=== PATIENT | female | born 1945 | race Caucasian/White ===

== ENCOUNTER 2024-05-21 16:13 | Inpatient (IN) ==
--- NOTE | 2024-05-21 16:33 | Emergency Department Note ---
Impression & Plan Stroke-like symptoms, UTI (urinary tract infection), Alzheimer dementia ED Provider Note Provider: Freddy Warren MD DATE OF SERVICE: 05/21/2024 CHIEF COMPLAINT: Slurred speech, facial droop, off HISTORY OF PRESENT ILLNESS: Patient is a 78-year-old female history of dementia and hypertension presenting with son today reportedly starting at least sometime last evening when patient was on the phone with the son son reports he seemed like she was having trouble with her words and slurring her speech some. Checked on her today and both he and his think she is not acting normal. Possibly some facial droop and walking harder and having difficulty with words. She lives by herself normally does have some dementia. I saw her following on Friday so last known well is more than 24 hours ago. No falls or trauma reported. Maybe some headaches earlier in the week a little bit of burning of the eyes at times. No crusting of the eyes. No falls reported or chest pain or significant abdominal pain or diarrhea. Patient herself does not remember her states she feels off so much. Son states that her amount of forgetfulness and mild confusion is not that abnormal for her baseline PAST MEDICAL HISTORY: As noted above MEDICATIONS: Reviewed home medications not anticoagulants SOCIAL HISTORY: Lives by herself PHYSICAL EXAM: GENERAL: alert and oriented to person in no acute distress on stretcher does states his 2020 Head: normocephalic and atraumatic EYES: No injection, discharge or icterus. PERRL, EOMI. NECK: Trachea midline. Good range of motion ENT: Mucous membranes pink and moist. LUNGS: Airway patent. No retractions. Breath sounds clear HEART: Regular rate and rhythm. No chest wall tenderness ABDOMEN: Soft and non-tender, without guarding or rebound. SKIN: Acyanotic, warm, dry, without rashes EXTREMITIES: Without swelling, tenderness or deformity NEUROLOGICAL: Maybe some very slight left finger-nose ataxia. No aphasia. No facial droop with maybe some slight slurred speech. Normal strength and tone in the extremities. Sensation to gross touch normal. Ambulatory. EK bpm sinus rhythm right bundle branch block without PVC. Anterior T wave inversions without acute ST segment elevation QTc 466. CONTINUOUS CARDIAC MONITORING: was ordered and showed a heart rate of 50s to 60s bpm in normal sinus rhythm to sinus bradycardia Patient's laboratory studies and imaging reviewed. Differential includes Infection, dehydration, metabolic abnormality, hypo/hyperglycemia, electrolyte disturbance, anemia, hypoxia, cardiac sources, intracerebral event, toxicologic, neurologic, as well as other pathologies. IMPRESSION/MEDICAL DECISION MAKING: Patient outside window for thrombolytics and not on high risk anticoagulants. Not a stroke alert as symptoms been ongoing for the 24 hours. Question of some shellfish allergy and given the patient's dementia and lack of history from the son unsure if this could extend to CT imaging dye. Patient not unresponsive and seems to grossly be moving all extremities. No severe hemiplegia. Will send for CT scan obtain blood work. Could be infectious, metabolic, or possibly represent occult CVA. Does not appear meningitic. Blood work here without anemia or leukocytosis. No severe electrolyte abnormalities or signs of renal dysfunction. Head CT without acute changes. No severe hemiplegia. Discussed with patient and family recommend she stay for further evaluation. Encouraged her to give a urine sample for testing to exclude UTI. Patient after long discussion was eventually agreeable. Discussed with hospitalist team. Urinalysis later does return concerning for UTI and the hospitalist team has started her on antibiotics. This likely explains her symptomatologies. DIAGNOSIS: Speech changes, dementia, UTI DISPOSITION: Hospitalist will evaluate Patient was agreeable with this plan as were family who encouraged her to stay. 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) Medical History Hypothyroid Social History Smoking Status: Never smoker Preferred Language: Georgian Feels Safe at Home: Yes Allergies Allergies Allergy/AdvReac Type Severity Reaction Status Date / Time shellfish derived AdvReac Intermediate SORENESS Verified 05/21/24 18:01 AROUND URETHRA WITH RASH, BURINING WITH URINATION Home Meds Home Medications Medication Instructions Recorded Confirmed lisinopril 10 mg tablet 10 mg PO DAILY 05/21/24 05/21/24 rivastigmine 9.5 mg/24 hour 9.5 mg topical DAILY 05/21/24 05/21/24 transdermal patch Results & Data (ED) Vital Signs Vital Signs - 24 hr 05/21/24 16:15 05/21/24 16:19 05/21/24 17:12 Temperature 36.6 C Temperature Source Temporal Artery Scan Pulse Rate 66 62 54 L Pulse Rhythm Regular Respiratory Rate 20 18 17 Respiratory Effort / Characteristics Non-Labored Spontaneous Respiratory Depth Normal Blood Pressure 158/84 H Blood Pressure Mean 108 Blood Pressure Position Sitting Pulse Oximetry 96 94 96 Oxygen Delivery Method Room Air Room Air Room Air Sepsis Recent Fever Within 48 Hours No Sepsis New/Unexplained Change in Mental Status No Sepsis Action Taken by Nursing No Action Required 05/21/24 17:15 05/21/24 17:21 05/21/24 17:30 Temperature Temperature Source Pulse Rate 58 L 55 L 56 L Pulse Rhythm Respiratory Rate 21 Respiratory Effort / Characteristics Respiratory Depth Blood Pressure Blood Pressure Mean Blood Pressure Position Pulse Oximetry 95 96 Oxygen Delivery Method Room Air Room Air Sepsis Recent Fever Within 48 Hours Sepsis New/Unexplained Change in Mental Status Sepsis Action Taken by Nursing 05/21/24 17:42 05/21/24 17:54 05/21/24 18:09 Temperature Temperature Source Pulse Rate 56 L 60 56 L Pulse Rhythm Respiratory Rate 21 20 19 Respiratory Effort / Characteristics Respiratory Depth Blood Pressure 154/102 H Blood Pressure Mean 119 Blood Pressure Position Pulse Oximetry 96 98 94 Oxygen Delivery Method Room Air Room Air Room Air Sepsis Recent Fever Within 48 Hours Sepsis New/Unexplained Change in Mental Status Sepsis Action Taken by Nursing 05/21/24 18:18 05/21/24 18:21 05/21/24 18:30 Temperature Temperature Source Pulse Rate 56 L 57 L Pulse Rhythm Respiratory Rate 16 21 Respiratory Effort / Characteristics Respiratory Depth Blood Pressure 169/104 H Blood Pressure Mean 135 Blood Pressure Position Pulse Oximetry 96 96 Oxygen Delivery Method Room Air Room Air Sepsis Recent Fever Within 48 Hours Sepsis New/Unexplained Change in Mental Status Sepsis Action Taken by Nursing 05/21/24 18:54 Temperature Temperature Source Pulse Rate 76 Pulse Rhythm Respiratory Rate 18 Respiratory Effort / Characteristics Respiratory Depth Blood Pressure Blood Pressure Mean Blood Pressure Position Pulse Oximetry Oxygen Delivery Method Sepsis Recent Fever Within 48 Hours Sepsis New/Unexplained Change in Mental Status Sepsis Action Taken by Nursing Laboratory Data 05/21/24 16:28 05/21/24 16:28 Lab Results 05/21/24 05/21/24 05/21/24 Range/Units 16:28 16:36 18:10 WBC 5.76 (4.8-10.8) K/ul RBC 5.04 (4.20-5.40) M/uL Hgb 14.5 (12.0-16.0) g/dl POC Hgb 13.6 (12.0-16.0) g/dl Hct 43.9 (37.0-47.0) % POC Hct 40 (37-47) % MCV 87.1 (80.0-100.0) fL MCH 28.8 (25.0-34.0) pg MCHC 33.0 (32.0-36.0) g/dL RDW Std Deviation 43.7 (36.4-46.3) fL RDW Coeff of Allison 13.7 (11.5-14.5) % Plt Count 250 (130-400) K/uL MPV 10.3 (9.4-12.4) fL PT 10.6 (9.0-12.0) Seconds INR 1.0 (0.9-1.1) APTT 26 (21-31) Seconds PTT Ratio 1.0 POC Sodium 139 (135-144) mmol/L Sodium 140 (136-145) mmol/L POC Potassium 4.1 (3.3-5.0) mmol/L Potassium 4.2 (3.5-5.1) mmol/L POC Chloride 107 (101-112) mmol/L Chloride 107 (98-107) mmol/L Carbon Dioxide 25 (21-32) mmol/L POC Total CO2 23 L (24-31) mmol/L Anion Gap 8 (3-11) POC Anion Gap 15.0 L (16-25) mmol/L POC BUN 9 (7-18) mg/dl BUN 10 (6-23) mg/dl Creatinine 0.80 (0.6-1.2) mg/dl POC Creatinine 0.8 (0.6-1.3) mg/dl Est Cr Clr Drug Dosing Not Reportable Est GFR ( Amer) 81.3 ml/min Est GFR (Non-Af Amer) 70.1 ml/min BUN/Creatinine Ratio 12.5 (10-20) Glucose 92 (70-99(Fasting)) mg/dl POC Glucose 94 (70-99) mg/dl POC Glucose (other) 92 (70-99) mg/dl Calcium 9.2 (8.6-10.3) mg/dl POC Ioniz Calcium Nikita 1.16 (1.12-1.32) mmol/l Magnesium 2.5 H (1.7-2.4) mg/dl Total Bilirubin 0.6 (0.2-1.0) mg/dl AST 31 (13-39) U/L ALT 22 (7-52) U/L Alkaline Phosphatase 81 (34-104) U/L Total Protein 6.4 (6.0-8.3) gm/dl Albumin 4.2 (3.4-5.0) gm/dl Globulin 2.2 L (2.5-4.0) gm/dl Albumin/Globulin Ratio 1.9 (0.9-2) Urine Color Yellow Urine Appearance Turbid A (Clear) Urine pH 5.5 (4.5-7.5) Ur Specific [place] 1.016 (1.000-1.030) Urine Protein Trace H (Negative) Urine Glucose (UA) Negative (Negative) Urine Ketones Trace H (Negative) Urine Blood 1+ H (Negative) Urine Nitrite Positive A (Negative) Urine Bilirubin Negative (Negative) Urine Urobilinogen Negative (Negative) Ur Leukocyte Esterase 3+ H (Negative) Urine WBC (Auto) >50 H (0-5) /hpf Urine RBC (Auto) 6-10 H (0-2) /hpf U Hyaline Cast (Auto) 3-5 H (0-2) /lpf U Epithel Cells (Auto) 0-2 (0-2) /hpf Urine Bacteria (Auto) 4+ H (None Seen) Calcium Oxalate Crystal Present A (None Prsent) Lyme Disease Screen Negative (Negative) Administered Medications Ceftriaxone Sodium (Rocephin) 2,000 mg in 50 mls @ 100 mls/hr IV Q24H GUS Stop: 05/26/24 18:59 Last Infusion: 05/21/24 19:48 Dose: Infused Documented By: Admin: 05/21/24 19:18 Dose: 100 mls/hr Documented By: NRB Discontinued Medications Melatonin (Melatonin 3 Mg Tab) 6 mg PO ONE ONE Stop: 05/21/24 19:37 Last Admin: 05/21/24 19:41 Dose: 6 mg Documented By: HARVINDER Miscellaneous (Patient's Height &/Or Weight Needed) 1 each N/A NOW STA Stop: 05/21/24 21:29 Last Admin: 05/21/24 21:46 Dose: Not Given Documented By: [facility] Imaging Data Radiologist's Impression: Head CT 05/21/24 16:[address] DOSE: 547.75 mGy.cm HISTORY: Slurred speech. Neuro deficit, acute, stroke suspected TECHNIQUE: Multiaxial CT images of the head were performed without the use of intravenous contrast. Automated exposure control was utilized for this study. A dose lowering technique was utilized adhering to the principles of ALARA. Comparison: Head CT 04/25/2023. Findings: The paranasal sinuses and mastoid air cells are clear. The calvarium and skull base are intact. There is no mass, hematoma, midline shift, acute infarct. White matter hypodensity is nonspecific but suggestive of microvascular ischemic change. The ventricles and sulci demonstrate mild age-related involutional changes. Stable prominence within the right extra-axial posterior fossa measuring 2.7 cm. This favors an arachnoid cyst. Impression: No significant change compared to the prior study. No acute intracranial abnormality. ACT 112: Negative or not required by law. Electronically signed by: Ron Chapin M.D. 05/21/2024 5:06 PM Discharge Plan Visit Data Chief Complaint: TIA Symptoms Stated Complaint: POSSIBLE STROKE, SLURRED SPEECH, FACE DROOP ED Provider: Freddy Warren Discharge Problem: Stroke-like symptoms, UTI (urinary tract infection), Alzheimer dementia Patient Disposition: Admitted As Inpatient Discharge Instructions Interventions: ED Discharge Assessment Last Done: 05/21/24 21:28
[2024-05-21 16:49] LABS: iSTAT Creatinine 0.8 mg/dl (0.6-1.3); iSTAT Hemoglobin 13.6 g/dl (12.0-16.0); iSTAT Ionized Calcium 1.16 mmol/l (1.12-1.32); iSTAT Potassium 4.1 mmol/L (3.3-5.0)
[2024-05-21 16:55] LABS: Hematocrit (blood only) 43.9 % (37.0-47.0); Hemoglobin 14.5 g/dl (12.0-16.0); Mean Corpuscular Hemoglobin 28.8 pg (25.0-34.0); Mean Corpuscular Volume 87.1 fL (80.0-100.0); Mean Platelet Volume 10.3 fL (9.4-12.4); Platelet Count 250 K/uL (130-400); RDW Coefficient of Variation 13.7 % (11.5-14.5); RDW Standard Deviation 43.7 fL (36.4-46.3); Red Blood Count 5.04 M/uL (4.20-5.40); White Blood Count 5.76 K/ul (4.8-10.8)
--- NOTE | 2024-05-21 17:08 | CT Scan Report ---
HEAD CT NONCONTRAST CT DOSE: 547.75 mGy.cm HISTORY: Slurred speech. Neuro deficit, acute, stroke suspected TECHNIQUE: Multiaxial CT images of the head were performed without the use of intravenous contrast. A utomated exposure control was utilized for this study. A dose lowering technique was utilized adheri ng to the principles of ALARA. Comparison: Head CT 04/25/2023. Findings: The paranasal sinuses and mastoid air cells are clear. The calvarium and skull base are int act. There is no mass, hematoma, midline shift, acute infarct. White matter hypodensity is nonspecifi c but suggestive of microvascular ischemic change. The ventricles and sulci demonstrate mild age-rela gali involutional changes. Stable prominence within the right extra-axial posterior fossa measuring 2. 7 cm. This favors an arachnoid cyst. Impression: No significant change compared to the prior study. No acute intracranial abnormality. ACT 112: Negative or not required by law. Electronically signed by: Ron Chapin M.D. 05/21/2024 5:06 PM
[2024-05-21 17:13] LABS: Alanine Aminotransferase 22 U/L (7-52); Albumin Globulin Ratio 1.9 (0.9-2); Albumin Level 4.2 gm/dl (3.4-5.0); Alkaline Phosphatase 81 U/L (34-104); Anion Gap 8 (3-11); Aspartate Aminotransferase 31 U/L (13-39); BUN Creatinine Ratio 12.5 (10-20); Bilirubin,Total 0.6 mg/dl (0.2-1.0); Blood Urea Nitrogen 10 mg/dl (6-23); Calcium 9.2 mg/dl (8.6-10.3); Carbon Dioxide 25 mmol/L (21-32); Chloride 107 mmol/L (98-107); Est GFR (African American) 81.3 ml/min; Est GFR (Non-African American) 70.1 ml/min; Globulin 2.2 gm/dl (2.5-4.0); Glucose 92 mg/dl (70-99(Fasting)); Magnesium 2.5 mg/dl (1.7-2.4); Potassium 4.2 mmol/L (3.5-5.1); Sodium 140 mmol/L (136-145); Total Protein 6.4 gm/dl (6.0-8.3)
[2024-05-21 17:26] LABS: Partial Thromboplastin Time 26 Seconds (21-31); Prothrombin Time 10.6 Seconds (9.0-12.0)
--- NOTE | 2024-05-21 17:57 | History & Physical Report ---
Date of Service May 21, 2024 Assessment & Plan (1) UTI (urinary tract infection): (2) Stroke-like symptoms: (3) Alzheimer dementia: (4) Essential hypertension: Plan 78-year-old female with history of Alzheimer's dementia on Exelon patch, hypertension was brought to the ED by family for concern for slurred speech, slight facial droop UTI- UA positive for UTI. Will start on rocephin pending final urine culture results. Stroke like symptoms- had slurred speech, may be slight facial droop. Neuro exam was relatively unremarkable although gait not checked. Concern that these symptoms might be related to her UTI rather than acute CVA and hence will hold off on ASA, statin or neuro eval or stroke order set and last well known time seems to be few days ago. CT head unremarkable. Will get MRI brain and carotid dopplers and monitor on tele. PT OT eval Alzheimer's dementia- on exelon patch. Delirium precautions. HTN- continue lisinopril. HLZ prn. DVT ppx- sc lovenox DNR/DNI- reviewed with son at bedside Dispo- admit to [facility] on tele Updated family at bedside Time spent- approx 75 mins History of Present Illness Chief Complaint: slurred speech Primary Care Provider: Alejo Coburn MD 78-year-old female with history of Alzheimer's dementia on Exelon patch, hypertension was brought to the ED by family for concern for slurred speech, slight facial droop. Patient is awake alert oriented x 2 and able to converse but not able to provide full history given her dementia. Per family at bedside, when he spoke her over the phone, she had slurred speech, like she was drunk, also noted she had somewhat side effects on the right side. She will feel safe at home with caregivers 3 times a week for 4 hours, however family lives with 6 minutes away. She is able to ambulate without any issues. Her dementia is recently getting worse and she started to have sundowning and wandering. Per family, last well-known time was maybe 2 to 3 days ago. She does not smoke or drink alcohol. She does not have any history of TIA or stroke. No history of heart or lung disease. No history of A-fib. No history of blood clots. 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 No Pronator drift. strength 5/5 on all extremities. sensation grossly intact. finger-nose test unremarkable. Gait not checked. Cranial nerves grossly intact Extremities: No cyanosis, clubbing or edema Psych: calm, cooperative, demented at baseline Results & Data Results & Data Vital Signs (Past 12 Hours) Vital Signs Temp Pulse Resp BP Pulse Ox O2 Del Method 05/21/24 17:15 58 L 05/21/24 16:19 62 18 94 Room Air 05/21/24 16:15 36.6 C 66 20 158/84 H 96 Room Air Laboratory Results Short CBC 05/21/24 Range/Units 16:28 WBC 5.76 (4.8-10.8) K/ul Hgb 14.5 (12.0-16.0) g/dl Hct 43.9 (37.0-47.0) % Plt Count 250 (130-400) K/uL BMP 05/21/24 16:28 Sodium 140 Potassium 4.2 Chloride 107 Carbon Dioxide 25 BUN 10 Creatinine 0.80 Glucose 92 Calcium 9.2 Liver Function 05/21/24 Range/Units 16:28 Total Bilirubin 0.6 (0.2-1.0) mg/dl AST 31 (13-39) U/L ALT 22 (7-52) U/L Alkaline Phosphatase 81 (34-104) U/L Albumin 4.2 (3.4-5.0) gm/dl Urine 05/21/24 Range/Units 18:10 Urine Color Yellow Urine Appearance Turbid A (Clear) Urine pH 5.5 (4.5-7.5) Ur Specific [place] 1.016 (1.000-1.030) Urine Protein Trace H (Negative) Urine Glucose (UA) Negative (Negative) Diagnostic Findings Head CT 05/21/24 16:[address] DOSE: 547.75 mGy.cm HISTORY: Slurred speech. Neuro deficit, acute, stroke suspected TECHNIQUE: Multiaxial CT images of the head were performed without the use of intravenous contrast. Automated exposure control was utilized for this study. A dose lowering technique was utilized adhering to the principles of ALARA. Comparison: Head CT 04/25/2023. Findings: The paranasal sinuses and mastoid air cells are clear. The calvarium and skull base are intact. There is no mass, hematoma, midline shift, acute infarct. White matter hypodensity is nonspecific but suggestive of microvascular ischemic change. The ventricles and sulci demonstrate mild age-related involutional changes. Stable prominence within the right extra-axial posterior fossa measuring 2.7 cm. This favors an arachnoid cyst. Impression: No significant change compared to the prior study. No acute intracranial abnormality. ACT 112: Negative or not required by law. Electronically signed by: Ron Chapin M.D. 05/21/2024 5:06 PM
[2024-05-21 18:44] LABS: Appearance Urine Turbid (Clear); Bacteria Urine Automated 4+ (None Seen); Bilirubin Urine Negative (Negative); Blood Urine 1+ (Negative); Calcium Oxalate Crystals Urine Present (None Prsent); Color Urine Yellow; Epithelial Cell Urine Auto 0-2 /hpf (0-2); Glucose Urine UA Negative (Negative); Ketones Urine Trace (Negative); Leukocyte Esterase Urine 3+ (Negative); Nitrite Urine Positive (Negative); Protein Urine Trace (Negative); Specific Gravity Urine 1.016 (1.000-1.030); Urobilinogen Urine Negative (Negative); WBC Urine Automated >50 /hpf (0-5); pH Urine 5.5 (4.5-7.5)
[2024-05-21] MEDS: cefTRIAXone SODIUM 2,000 MG/50 ML BAG IV SCH (19:18)
[2024-05-21] MEDS: MELATONIN 3 MG TAB PO ONE (19:41)
[2024-05-21] MEDS ORDERED: hydrALAZINE HCL 20 MG/ML VIAL IV PRN (21:27)
[2024-05-21] MEDS ORDERED: ACETAMINOPHEN 325 MG TAB PO PRN (21:27)
[2024-05-21] MEDS: Patient's HEIGHT &/or WEIGHT Needed STA (21:46)
--- OUTSIDE RECORDS SUMMARY | 2024-05-21 22:18 | External Medical Summary | Summary of Care ---
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 180 Tablet 3 08/12/2023 Active Lisinopril 10 MG Oral Tablet (Prinivil) Take 1 Tablet by mouth in the morning. 90 Tablet 3 11/12/2023 Active Rivastigmine 4.6 MG/24HR Transdermal Patch 24 Hour (Exelon) Place 1 Patch over 24 hours topically on the skin in the morning. 30 Patch 12 02/11/2024 Active Hospital, Clinic, or Other Facility Administered Medication Ordered Dose Route Frequency Start Date End Date Status vitamin b-12 (Cyanocobalamin) inj 1,000 mcgIndications:B12 deficiency 1000 mcg IM [id number] 06/03/2023 05/03/2024 Active vitamin b-12 (Cyanocobalamin) inj 1,000 mcgIndications:Vitamin B12 deficiency 1000 mcg IM [id number] 11/12/2023 10/13/2024 Active documented as of this encounter (statuses as of 02/20/2024) Active Problems Problem Noted Date Diagnosed Date Vitamin B12 deficiency 08/12/2023 Mild dementia 05/31/2023 Overweight (BMI 25.0-29.9) 05/31/2023 HTN, goal below 130/80 04/30/2023 Senile osteoporosis 08/01/2017 Dyslipidemia 10/04/2009 Overview: Per Lipid Taxonomy. Subclinical hypothyroidism 07/03/1998 documented as of this encounter (statuses as of 02/20/2024) Resolved Problems Problem Noted Date Diagnosed Date Resolved Date Encounter for examination fo r normal comparison and control in clinical research program 02/15/2019 05/22/2020 Overview: DO NOT DELETE [facility] DETECT Study: Project # [id number], Fourth Grade Teacher: Roscoe Baldwin, PhD. SUMMARY: Goal: Establish test characteristics (sensitivity, specificity, PPV, NPV) of a circulating tumor DNA (ctDNA)-based test for cancer. Hypothesis: Circulating tumor DNA (ctDNA) and elevated protein biomarkers (together, the marker panel) can be detected in asymptomatic individuals with early cancer. Specific Aim 1: Determine the prevalence of a positive marker panel test in a prospective clinical cohort of 10,000 asymptomatic women ages 65 to 75 years. Specific Aim 2: Determine the sensitivity, specificity, positive predictive value (PPV) and negative predictive value (NPV) of a marker panel test to identify histologically proven cancers that develop within 5-years of the marker panel evaluation. CONTACTS: During normal business hours, contact study staff at ; after hours Fourth Grade Teacher via the [facility] direct casting operator . Please contact study team before resolving/deleting from patients problem list. Study phone number: [phone]. Diagnosis changed due to Research Module. Go to Snapshot for study details. Encounter for examination fo r normal comparison and control in clinical research program 02/15/2019 06/20/2022 Overview: DO NOT DELETE - [facility] DETECT Study: Project # [id number], Fourth Grade Teacher: Jesus Tolbert, MS, MPH. SUMMARY: Goal: Establish test characteristics (sensitivity, specificity, PPV, NPV) of a circulating tumor DNA (ctDNA)-based test for cancer. - Hypothesis: Circulating tumor DNA (ctDNA) and elevated protein biomarkers (together, the marker panel) can be detected in asymptomatic individuals with early cancer. - Specific Aim 1: Determine the prevalence of a positive marker panel test in a prospective clinical cohort of 10,000 asymptomatic women ages 65 to 75 years. - Specific Aim 2: Determine the sensitivity, specificity, positive predictive value (PPV) and negative predictive value (NPV) of a marker panel test to identify histologically proven cancers that develop within 5-years of the marker panel evaluation. - CONTACTS: During normal business hours, contact study staff at ; after hours Fourth Grade Teacher via the [facility] direct casting operator . - Please contact study team before resolving/deleting from patients problem list. Study phone number: [phone]. Diagnosis changed due to Research Module. Go to Snapshot for study details. Prediabetes 12/02/2017 03/31/2019 Overview: Per Prediabetes protocol #1 Colonoscopy refused 09/04/2017 03/30/20 20 Overview: Acute. Mammogram declined 09/04/2017 0 Overview: Acute. BMI 35-39 ISOLATED (SEE ACTUAL BMI) 04/02/2010 09/04/2017 Overview: Per Obesity Protocol, #19 ADVANCE DIRECTIVE INFORMATION 03/20/2007 09/04/2017 Overview: Yes, Patient instructed to provide copy of advance directive for provider to review and to be scanned into Electronic Medical Record Osteoporosis 01/16/2000 08/01/2017 FAM HX-DIABETES MELLITUS - Brother 10/31/1999 09/04/2017 Mixed dyslipidemia 07/03/1998 9 Overview: Per Lipid Taxonomy. MENOPAUSE - 07/03/1998 09/04/2017 Calculus of kidney 10/20/1992 7 documented as of this encounter (statuses as of 02/20/2024) Immunizations Name Administration Dates Next Due COVID-19 mRNA, LNP-s, No Pre serve, 2-Dose Series (Pfizer) 01/16/2021 Pneumococcal Conjugate Vacc, 13 Valent (Prevnar) 02/27/2016 Pneumococcal Polysaccharide PPV23 (Pneumovax) Seasonal Influenza, Quadrivalent Hd (Fluzone Hd) 08/12/2023 Seasonal Influenza, Split, IIV3, With Preserve, Inj 08/18/2013 Seasonal Influenza, Trivalent, Adjuvanted, 65+ y rs 08/26/2019 TDAP (age 10 and older)(Boostrix) 03/10/2019 TDAP (age 11 and older)(Adacel) 04/07/2008 Varicella Zoster Vaccine (Adult) 05/17/2011 documented as of this encounter Social History Tobacco Use Types Packs/Day Years Used Date Smoking Tobacco: Never Smokeless Tobacco: Never Alcohol Use Standard Drinks/Week Comments Yes 0 (1 standard drink = 0.6 oz pur e alcohol) rare PHQ-2 Answer Date Recorded PHQ-2 Score 0 08/26/2019 Hunger Vital Sign Answer Date Recorded Worried About Running Out of Food in the Last Ye ar Never true 08/26/2019 Ran Out of Food in the Last Year Never true 08/26/2019 Education Answer Date Recorded What is the highest level of school you have completed or the highest degree you have received? 12th grade 01/13/2024 Sex and Gender Information Value Date Recorded Sex Assigned at Female 03/10/2019 3:00 PM EDT Gender Identity Female 03/10/2019 3:00 PM EDT Sexual Orientation Not on file Job Start Date Occupation Industry Not on file Not on file Not on file documented as of this encounter Last Filed Vital Signs Vital Sign Reading Time Taken Comments Blood Pressure 120/78 02/18/2024 3:24 PM EDT Pulse 53 02/18/2024 3:24 PM EDT Temperature 36.6 C (97.8 F) 02/18/2024 3:24 PM ED T Respiratory Rate 18 02/18/2024 3:24 PM EDT Oxygen Saturation 97% 02/18/2024 3:24 PM EDT Inhaled Oxygen Concentration - - Weight 72.1 kg (159 lb) 02/18/2024 3:24 PM EDT Height 157.5 cm (5' 2") 02/18/2024 3:24 PM EDT Body Mass Index 29.08 02/18/2024 3:24 PM EDT documented in this encounter Progress Notes * Alejo Coburn MD - 02/20/2024 8:04 AM EDT SUBJECTIVE: Cleopatra Edwards is a 78 year old female. Chief Complaint Patient presents with Follow Up Pt here with son for 3 month follow up and would like to discuss recent testing HPI: Here with son for follow up. There was a lot of confusion re: Exelon patch. Patient and son were not aware it was sent in or what is was for. Reviewed neurology recommendations with them. All questions answered. Patient Active Problem List Diagnosis Code Subclinical hypothyroidism E03.8 Dyslipidemia E78.5 Senile osteoporosis M81.0 HTN, goal below 130/80 I10 Mild dementia (HCC) F03.A0 Overweight (BMI 25.0-29.9) E66.3 Vitamin B12 deficiency E53.8 Current Outpatient Medications Medication Sig Dispense Refill Memantine HCl 5 MG Oral Tablet (Namenda) Take 1 Tablet by mouth in the morning and 1 Tablet before bedtime. 180 Tablet 3 Lisinopril 10 MG Oral Tablet (Prinivil) Take 1 Tablet by mouth in the morning. 90 Tablet 3 Rivastigmine 4.6 MG/24HR Transdermal Patch 24 Hour (Exelon) Place 1 Patch over 24 hours topically on the skin in the morning. 30 Patch 12 Current Facility-Administered Medications Medication Dose Route Frequency Provider Last Rate Last Admin vitamin b-12 (Cyanocobalamin) inj 1,000 mcg 1,000 mcg Intramuscular Q4 Weeks Shaneka Wolf MD 1,000 mcg at 11/12/23 1156 vitamin b-12 (Cyanocobalamin) inj 1,000 mcg 1,000 mcg Intramuscular Q4 Weeks Alejo Coburn MD Allergy: Review of patient's allergies indicates: Allergen Reactions Amoxicillin Aspirin GI upset Donepezil Unknown Lactose Intolerance Shellfish Hives OBJECTIVE: BP 120/78 | Pulse 53 | Temp 36.6 C (97.8 F) (Tympanic) | Resp 18 | Ht 1.575 m (5' 2") | Wt 72.1kg (159 lb) | SpO2 97% | BMI 29.08 kg/m | BSA 1.78 m General: alert, healthy, and no distress Head: Normocephalic, No masses, lesions, tenderness or abnormalities Neck: supple, no adenopathy, no bruits, thyroid normal size, non-tender, without nodularity Lungs: chest symmetric with normal AP diameter, no chest deformities noted, no chest wall tenderness, lungs clear to auscultation Heart: regular rate & rhythm, no murmur, and no gallops Pulses: carotid=2/4 w/o bruits Extremities: less than 2 second capillary refill, no joint deformities, effusion, or inflammation ASSESSMENT AND PLAN: (G30.0, F02.A18) 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 No other complaints were offered at this time. Alejo Coburn MD documented in this encounter Nursing Notes * Maddy Ireland LPN - 02/18/2024 3:24 PM EDT The patient has been properly identified by confirmation of name and date of . Chief Complaint Patient presents with Follow Up Pt here with son for 3 month follow up and would like to discuss recent testing documented in this encounter Plan of Treatment Upcoming Encounters Date Type Department Care Team (Late st Contact Info) Description 02/24/2024 11:30 AM EDT Imaging Rad[facility] [address] [facility] [place] [address] 03/22/2024 4:30 PM EDT Imaging Radiology [address] [facility] [place] [address] 03/30/2024 1:40 PM EDT Office Visit Neurology [facility] [address] [place] [address] Bonnie Siddiqui MD [address] [facility] [place] [address] 08/23/2024 11:40 AM EST Office Visit Family Practice [facility] [address] [place] [address] Alejo Coburn MD [address] [facility] [place] [address] Scheduled Orders Name Type Priority Associated Diagnoses Orde r Schedule MAMMOGRAM SCREENING BILATERAL Medical Imaging Routine Encounter for screening mammogram for breast cancer Expected: 02/19/2024, Expires: 03/20/2025 Health Maintenance Due Date Last Done Comments Albumin/Creatinine Ratio 1963 Hepatitis C Screening 1963 Zoster Vaccines (2 of 3) 07/12/2011 05/17/2011 Mammogram 05/31/2016 05/31/2015, 11/2009, 08/04/2009, Additional history exists Depression Screening 08/26/2020 08/26/2019 *BISPHONATE OR OTHER ACCEPTABLE MEDICATION NEEDED FOR OSTEOPOROSIS (REFER TO SMARTSET #1146) 01/11/2022 DXA Scan 05/23/2022 05/23/2020, 05/20, 05/02/2014, Additional history exists COVID-19 Vaccine ( season) 2023 01/16/2021 GFR 04/30/2024 04/30/2023, 12/19, 06/14/2016, Additional history exists DTaP,Tdap,and Td Vaccines (3 - Td or Tdap) 03/10/2029 03/10/2019, 04/07/2008 VITAMIN D LEVEL ONCE IN A LIFETIME-USE SMARTSET# [id number] Completed 05/16/2014, 05/01/2010 Pneumococcal Vaccine: 65+ Years Completed 02/27/2016, 11/09/2010 Influenza Vaccine (FLU shot) Completed , 08/26/2019, 08/18/2013 GARDASIL-HPV IMMUNIZATION SERIES Aged Out No longer eligible based on patient's age to complete this topic Hepatitis B Aged Out No longer eligi ble based on patient's age to complete this topic MENINGOCOCCAL (MENACTRA/MENVEO) Aged Out No longer eligible based on patient's age to complete this topic documented as of this encounter Medical Devices Not on filedocumented as of this encounter Visit Diagnoses Diagnosis 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
--- OUTSIDE RECORDS SUMMARY | 2024-05-21 22:18 | External Medical Summary | Summary of Care ---
Author Name Unknown Organization [facility] Address [address] [place] [address] Phone [phone] Care Team Providers Care Superintendent Stations Name Role Phone Alejo Coburn MD Primary Care Provider [phone] Reason for Visit * Reason Onset Date Comments Test Results Imaging Study 02/28/2024 Encounter Details Date Type Department Care Team (Late st Contact Info) Description 02/28/[address] [facility] [address] [place] [address] Bonnie Siddiqui MD [address] [place] [address] Test Results Imaging Study Allergies Active Allergy Reactions Criticality Noted Date Comments Amoxicillin 07/23/2016 Aspirin 10/31/1999 GI upset Donepezil Unknown 01/13/2024 Lactose Intolerance 10/31/1999 Shellfish 06/24/2003 Hives documented as of this encounter (statuses as of 02/28/2024) Medications Medication Sig Dispensed Refills Start Date [...] inj 1,000 mcgIndications:B12 deficiency 1000 mcg IM [id number] 06/03/2023 05/03/2024 Active vitamin b-12 (Cyanocobalamin) inj 1,000 mcgIndications:Vitamin B12 deficiency 1000 mcg IM [id number] 11/12/2023 10/13/2024 Active documented as of this encounter (statuses as of 02/28/2024) Active Problems Problem Noted Date Diagnosed Date Vitamin B12 deficiency 08/12/2023 Mild dementia 05/31/2023 Overweight (BMI 25.0-29.9) 05/31/2023 HTN, goal below 130/80 04/30/2023 Senile osteoporosis 08/01/2017 Dyslipidemia 10/04/2009 Overview: Per Lipid Taxonomy. Subclinical hypothyroidism 07/03/1998 documented as of this encounter (statuses as of 02/28/2024) Resolved Problems Problem Noted Date Diagnosed Date Resolved Date Encounter for examination fo r normal comparison and control in clinical research program 02/15/2019 05/22/2020 Overview: DO NOT DELETE [facility] DETECT Study: Project # [id number], Hand Straightener: Roscoe Baldwin, PhD. SUMMARY: Goal: Establish test [...] contact study staff at ; after hours Hand Straightener via the [facility] hospital movie operator . Please contact study team before resolving/deleting from patients problem list. Study phone number: [phone]. Diagnosis changed due to Research Module. Go to Snapshot for study details. Encounter for examination fo r normal comparison and control in clinical research program 02/15/2019 06/20/2022 Overview: DO NOT DELETE - [facility]i BROOKS Study: Project # [id number], Hand Straightener: Jesus Tolbert, MS, MPH. SUMMARY: Goal: Establish [...] contact study staff at ; after hours Hand Straightener via the [facility] hospital movie operator . - Please contact study team before resolving/deleting from patients problem list. Study phone number: [phone]. Diagnosis changed due to Research Module. Go [...] as of this encounter (statuses as of 02/28/2024) Immunizations Name Administration Dates Next Due COVID-19 [...] on file documented as of this encounter Miscellaneous Notes * Telephone Encounter - Bonnie Siddiqui MD - 02/28/2024 10:22 AM EDT Call pt/friend Viciki-MRI cervical spine shows arthritis but nothing more serious documented in this encounter Plan of Treatment Upcoming Encounters Date Type Department Care Team (Late st Contact Info) Description 03/22/2024 4:30 PM EDT Imaging Radiology [address] [place] [address] 03/30/2024 1:40 PM EDT Office Visit Neurology [facility] [address] [place] [address] Bonnie Siddiqui MD [address] [facility] [place] [address] 08/23/2024 11:40 AM EST Office Visit Family Practice [facility] [address] [place] [address] Alejo Coburn MD [address] [place] [address] Health Maintenance Due Date Last Done Comments Albumin/Creatinine Ratio 1963 Hepatitis C Screening 1963 Zoster Vaccines (2 of 3) 07/12/2011 05/17/2011 Mammogram 05/31/2016 05/31/2015, 11/2009, 08/04/2009, Additional history exists Depression Screening 08/26/2020 08/26/2019 *BISPHONATE OR OTHER ACCEPTABLE MEDICATION NEEDED FOR OSTEOPOROSIS (REFER TO SMARTSET #1146) 01/11/2022 DXA Scan 05/23/2022 05/23/2020, 05/20, 05/02/2014, Additional history exists COVID-19 Vaccine ( - 2022- season) 2023 01/16/2021 GFR 04/30/2024 04/30/2023, 12/19, 06/14/2016, Additional history exists DTaP,Tdap,and Td Vaccines (3 - Td or Tdap) 03/10/2029 03/10/2019, 04/07/2008 VITAMIN D LEVEL ONCE IN A LIFETIME-USE SMARTSET# [id number] Completed 05/16/2014, 05/01/2010 Pneumococcal Vaccine: 65+ Years [...] Not on filedocumented as of this encounter Care Teams Superintendent Stations Relationship Specialty Start Date End Date Alejo Coburn MD [address] [place] [address] PCP - General Family Medicine 08/01/17 documented as of this encounter
--- OUTSIDE RECORDS SUMMARY | 2024-05-21 22:18 | External Medical Summary | Summary of Care ---
Author Name Unknown Organization [facility] Address [address] [place] [address] Phone [phone] Care Team Providers Care Cutter Plastics Rolls Name Role Phone Alejo Coburn MD Primary Care Provider [phone] Reason for Visit * Reason Onset Date Comments EEG 02/11/2024 Encounter Details Date Type Department Care Team (Late st Contact Info) Description 02/11/2024 Telephone Neurology [facility] [place] [address] [place] [address] Bonnie Siddiqui MD [address] [place] [address] EEG Allergies Active Allergy Reactions Criticality Noted Date Comments Amoxicillin 07/23/2016 Aspirin 10/31/1999 GI upset Donepezil Unknown 01/13/2024 Lactose Intolerance 10/31/1999 Shellfish 06/24/2003 Hives documented as of this encounter (statuses as of 02/18/2024) Medications Medication Sig Dispensed Refills Start Date [...] inj 1,000 mcgIndications:B12 deficiency 1000 mcg IM [id number] 06/03/2023 05/03/2024 Active vitamin b-12 (Cyanocobalamin) inj 1,000 mcgIndications:Vitamin B12 deficiency 1000 mcg IM [id number] 11/12/2023 10/13/2024 Active documented as of this encounter (statuses as of 02/18/2024) Active Problems Problem Noted Date Diagnosed Date Vitamin B12 deficiency 08/12/2023 Mild dementia 05/31/2023 Overweight (BMI 25.0-29.9) 05/31/2023 HTN, goal below 130/80 04/30/2023 Senile osteoporosis 08/01/2017 Dyslipidemia 10/04/2009 Overview: Per Lipid Taxonomy. Subclinical hypothyroidism 07/03/1998 documented as of this encounter (statuses as of 02/18/2024) Resolved Problems Problem Noted Date Diagnosed Date Resolved Date Encounter for examination fo r normal comparison and control in clinical research program 02/15/2019 05/22/2020 Overview: DO NOT DELETE [facility] DETECT Study: Project # [id number], Lehr Loader: Roscoe Baldwin, PhD. SUMMARY: Goal: Establish test [...] contact study staff at ; after hours Lehr Loader via the [facility] tool machine set up operator . Please contact study team before resolving/deleting from patients problem list. Study phone number: [phone]. Diagnosis changed due to Research Module. Go to Snapshot for study details. Encounter for examination fo r normal comparison and control in clinical research program 02/15/2019 06/20/2022 Overview: DO NOT DELETE - Nagi Carl DETECT Study: Project # [id number], Lehr Loader: Jesus Tolbert, MS, MPH. SUMMARY: Goal: Establish [...] contact study staff at ; after hours Lehr Loader via the [facility] hospital tool machine set up operator . - Please contact study team before resolving/deleting from patients problem list. Study phone number: [phone]. Diagnosis changed due to Research Module. Go [...] as of this encounter (statuses as of 02/18/2024) Immunizations Name Administration Dates Next Due COVID-19 [...] encounter Miscellaneous Notes * Telephone Encounter - Jennifer Martinez LPN - 02/18/2024 10:58 AM EDT Attempted to call only number on file for patient, unable to reach any one and VM has not been set up yet. * Telephone Encounter - Jennifer Martinez LPN - 02/11/2024 3:05 PM EDT Attempted to call patient, no answer and unable to leave as it is not set up yet. * Telephone Encounter - Bonnie Siddiqui MD - 02/11/2024 2:43 PM EDT Call pt/friend Suzette-pt is severely memory impaired; EEG slow but no sz (good news) I personally reviewed and interpreted have sent script for exelon patch; have her f/u 6weeks documented in this encounter Plan of Treatment Upcoming Encounters Date Type Department Care Team (Late st Contact Info) Description 02/18/2024 3:20 PM EDT Office Visit Family Practice [facility] [address] [place] [address] Alejo Coburn MD [address] [place] [address] 02/24/2024 11:30 AM EDT Imaging Radiology [address] [place] [address] 03/30/2024 1:40 PM EDT Office Visit Neurology [facility] [address] [facility] [place] [address] Bonnie Siddiqui MD [address] [facility] [place] [address] Health Maintenance Due Date Last Done Comments Albumin/Creatinine Ratio 1963 Hepatitis C Screening 1963 Zoster Vaccines (2 of 3) 07/12/2011 05/17/2011 Mammogram 05/31/2016 05/31/2015, 11/2009, 08/04/2009, Additional history exists Depression Screening 08/26/2020 08/26/2019 *BISPHONATE OR OTHER ACCEPTABLE MEDICATION NEEDED FOR OSTEOPOROSIS (REFER TO SMARTSET #1146) 01/11/2022 DXA Scan 05/23/2022 05/23/2020, 05/20, 05/02/2014, Additional history exists COVID-19 Vaccine () 06/20/2023 01/16/2021 GFR 04/30/2024 04/30/2023, 12/19, 06/14/2016, Additional history exists DTaP,Tdap,and Td Vaccines (3 - Td or Tdap) 03/10/2029 03/10/2019, 04/07/2008 VITAMIN D LEVEL ONCE IN A LIFETIME-USE SMARTSET# [id number] Completed 05/16/2014, 05/01/2010 Pneumococcal Vaccine: 65+ Years [...] filedocumented as of this encounter Care Teams Cutter Plastics Rolls Relationship Specialty Start Date End Date Alejo Coburn MD [address] [place] [address] PCP - General Family Medicine 08/01/17 documented as of this encounter
--- OUTSIDE RECORDS SUMMARY | 2024-05-21 22:18 | External Medical Summary | Summary of Care ---
Author Name Unknown Organization [facility] Address [address] [place] [address] Phone [phone] Care Team Providers Care Guest Services Attendant Name Role Phone Alejo Coburn MD Primary Care Provider [phone] Reason for Visit * Reason Onset Date Comments Test Results Imaging Study 02/28/2024 Encounter Details Date Type Department Care Team (Late st Contact Info) Description 02/28/2024 Telephone Neurology [facility] [address] [place] [address] Bonnie Siddiqui MD [address] [place] [address] Test Results Imaging Study Allergies Active Allergy Reactions Criticality Noted Date Comments Amoxicillin 07/23/2016 Aspirin 10/31/1999 GI upset Donepezil Unknown 01/13/2024 Lactose Intolerance 10/31/1999 Shellfish 06/24/2003 Hives documented as of this encounter (statuses as of 03/01/2024) Medications Medication Sig Dispensed Refills Start Date [...] inj 1,000 mcgIndications:B12 deficiency 1000 mcg IM [id number] 06/03/2023 05/03/2024 Active vitamin b-12 (Cyanocobalamin) inj 1,000 mcgIndications:Vitamin B12 deficiency 1000 mcg IM [id number] 11/12/2023 10/13/2024 Active documented as of this encounter (statuses as of 03/01/2024) Active Problems Problem Noted Date Diagnosed Date Vitamin B12 deficiency 08/12/2023 Mild dementia 05/31/2023 Overweight (BMI 25.0-29.9) 05/31/2023 HTN, goal below 130/80 04/30/2023 Senile osteoporosis 08/01/2017 Dyslipidemia 10/04/2009 Overview: Per Lipid Taxonomy. Subclinical hypothyroidism 07/03/1998 documented as of this encounter (statuses as of 03/01/2024) Resolved Problems Problem Noted Date Diagnosed Date Resolved Date Encounter for examination fo r normal comparison and control in clinical research program 02/15/2019 05/22/2020 Overview: DO NOT DELETE [facility] DETECT Study: Project # [id number], Administrative Associate: Roscoe Baldwin, PhD. SUMMARY: Goal: Establish test [...] contact study staff at ; after hours Administrative Associate via the [facility] sweatband decorating machine operator . Please contact study team before resolving/deleting from patients problem list. Study phone number: [phone]. Diagnosis changed due to Research Module. Go to Snapshot for study details. Encounter for examination fo r normal comparison and control in clinical research program 02/15/2019 06/20/2022 Overview: DO NOT DELETE - [facility] BROOKS Study: Project # [id number], Administrative Associate: Jesus Tolbert, MS, MPH. SUMMARY: Goal: Establish [...] contact study staff at ; after hours Administrative Associate via the [facility] sweatband decorating machine operator . - Please contact study team before resolving/deleting from patients problem list. Study phone number: [phone]. Diagnosis changed due to Research Module. Go [...] as of this encounter (statuses as of 03/01/2024) Immunizations Name Administration Dates Next Due COVID-19 [...] encounter Miscellaneous Notes * Telephone Encounter - Trish Peacock LPN - 03/01/2024 8:46 AM EDT Made pt aware and they expressed understanding. * Telephone Encounter - Bonnie Siddiqui MD - 02/28/2024 10:22 AM EDT Call pt/friend Viciki-MRI cervical spine shows arthritis but nothing more serious documented in this encounter Plan of Treatment Upcoming Encounters Date Type Department Care Team (Late st Contact Info) Description 03/22/2024 4:30 PM EDT Imaging Radiology [address] [place] [address] 03/30/2024 1:40 PM EDT Office Visit Neurology [facility] [address] [facility] [place] [address] Bonnie Siddiqui MD [address] [place] [address] 08/23/2024 11:40 AM EST Office Visit Family Practice [facility] [address] [place] [address] Alejo Coburn MD [address] [place] [address] Health Maintenance Due Date Last Done Comments [...] D LEVEL ONCE IN A LIFETIME-USE SMARTSET# [id number] Completed 05/16/2014, 05/01/2010 Pneumococcal Vaccine: 65+ Years [...] filedocumented as of this encounter Care Teams Guest Services Attendant Relationship Specialty Start Date End Date Alejo Coburn MD [address] [place] [address] PCP - General Family Medicine 08/01/17 documented as of this encounter
--- OUTSIDE RECORDS SUMMARY | 2024-05-21 22:18 | External Medical Summary | Summary of Care ---
Author Name Unknown Organization [facility] Address [address] [place] [address] Phone [phone] Care Team Providers Care Campus Administrator Name Role Phone Alejo Coburn MD Primary Care Provider [phone] Reason for Visit * Reason Onset Date Comments EEG 02/11/2024 Encounter Details Date Type Department Care Team (Late st Contact Info) Description 02/11/2024 Telephone Neurology [facility] [place] [address] [place] [address] Bonnie Siddiqui MD [address] [place] [address] EEG Allergies Active Allergy Reactions Criticality Noted Date Comments Amoxicillin 07/23/2016 Aspirin 10/31/1999 GI upset Donepezil Unknown 01/13/2024 Lactose Intolerance 10/31/1999 Shellfish 06/24/2003 Hives documented as of this encounter (statuses as of 02/11/2024) Medications Medication Sig Dispensed Refills Start Date [...] inj 1,000 mcgIndications:B12 deficiency 1000 mcg IM [id number] 06/03/2023 05/03/2024 Active vitamin b-12 (Cyanocobalamin) inj 1,000 mcgIndications:Vitamin B12 deficiency 1000 mcg IM [id number] 11/12/2023 10/13/2024 Active documented as of this encounter (statuses as of 02/11/2024) Active Problems Problem Noted Date Diagnosed Date Vitamin B12 deficiency 08/12/2023 Mild dementia 05/31/2023 Overweight (BMI 25.0-29.9) 05/31/2023 HTN, goal below 130/80 04/30/2023 Senile osteoporosis 08/01/2017 Dyslipidemia 10/04/2009 Overview: Per Lipid Taxonomy. Subclinical hypothyroidism 07/03/1998 documented as of this encounter (statuses as of 02/11/2024) Resolved Problems Problem Noted Date Diagnosed Date Resolved Date Encounter for examination fo r normal comparison and control in clinical research program 02/15/2019 05/22/2020 Overview: DO NOT DELETE [facility] DETECT Study: Project # [id number], Engraver Letter: Roscoe Baldwin, PhD. SUMMARY: Goal: Establish test [...] contact study staff at ; after hours Engraver Letter via the [facility] pack press operator . Please contact study team before resolving/deleting from patients problem list. Study phone number: [phone]. Diagnosis changed due to Research Module. Go to Snapshot for study details. Encounter for examination fo r normal comparison and control in clinical research program 02/15/2019 06/20/2022 Overview: DO NOT DELETE - [facility] DETECT Study: Project # [id number], Engraver Letter: Jesus Tolbert, MS, MPH. SUMMARY: Goal: Establish [...] contact study staff at ; after hours Engraver Letter via the [facility] pack press operator . - Please contact study team before resolving/deleting from patients problem list. Study phone number: [phone]. Diagnosis changed due to Research Module. Go [...] as of this encounter (statuses as of 02/11/2024) Immunizations Name Administration Dates Next Due COVID-19 [...] patient, no answer and unable to leave VM as it is not set up yet. [...] 3:20 PM EDT Office Visit Family Practice [facility] [address] [place] [address] Alejo Coburn MD [address] [place] [address] 02/24/2024 11:30 AM EDT Imaging Radiology [facility] [address] [facility] [place] [address] 03/30/2024 1:40 PM EDT Office Visit Neurology [facility] [address] [place] [address] Bonnie Siddiqui MD 200 [facility] [place] [place] [address] Health Maintenance Due Date Last Done Comments Albumin/Creatinine Ratio 1963 Hepatitis C Screening 1963 Zoster Vaccines (2 of 3) 07/12/2011 05/17/2011 Mammogram 05/31/2016 05/31/2015, 11/2009, 08/04/2009, Additional history exists Depression Screening 08/26/2020 08/26/2019 *BISPHONATE OR OTHER ACCEPTABLE MEDICATION NEEDED FOR OSTEOPOROSIS (REFER TO SMARTSET #1146) 01/11/2022 DXA Scan 05/23/2022 05/23/2020, 05/20, 05/02/2014, Additional history exists COVID-19 Vaccine (2 - 2022- season) 2023 01/16/2021 GFR 04/30/2024 04/30/2023, 12/19, 06/14/2016, Additional history exists DTaP,Tdap,and Td Vaccines (3 - Td or Tdap) 03/10/2029 03/10/2019, 04/07/2008 VITAMIN D LEVEL ONCE IN A LIFETIME-USE SMARTSET# [id number] Completed 05/16/2014, 05/01/2010 Pneumococcal Vaccine: 65+ Years [...] filedocumented as of this encounter Care Teams Campus Administrator Relationship Specialty Start Date End Date Alejo Coburn MD [address] [facility] [place] [address] PCP - General Family Medicine 08/01/17 documented as of this encounter
--- OUTSIDE RECORDS SUMMARY | 2024-05-21 22:18 | External Medical Summary | Summary of Care ---
Author Name Unknown Organization [facility] Address [address] [place] [address] Phone [phone] Care Team Providers Care Patch Worker Name Role Phone Alejo Coburn MD Primary Care Provider [phone] Reason for Referral * Precert (Within 10 days (routine)) - Pending Review Specialty Diagnoses / Procedures Referred By Contac t Referred To Contact Radiology Diagnoses Abnormal CT of brain Procedures CT C SPINE W CONTRAST Bonnie Siddiqui MD 200 [facility] [place] [address] Referral ID Status Reason Start Date Expiration Date V isits Requested Visits Authorized [id number] Pending Review 02/24/[phone] Reason for Visit * Reason Onset Date Comments abnormal imaging study 02/10/2024 Encounter Details Date Type Department Care Team (Late st Contact Info) Description 02/10/2024 Telephone Neurology [facility] [place] [facility] [place] [address] Bonnie Siddiqui MD 200 [facility] [place] [address] abnormal imaging study Allergies Active Allergy Reactions Criticality Noted Date Comments Amoxicillin 07/23/2016 Aspirin 10/31/1999 GI upset Donepezil Unknown 01/13/2024 Lactose Intolerance 10/31/1999 Shellfish 06/24/2003 Hives documented as of this encounter (statuses as of 02/13/2024) Medications Medication Sig Dispensed Refills Start Date End Date Status Memantine HCl 5 MG Oral Tablet (Namenda) Take 1 Tablet by mouth in the morning and 1 Tablet before bedtime. 180 Tablet 3 08/12/2023 Active Lisinopril 10 MG Oral Tablet (Prinivil) Take 1 Tablet by mouth in the morning. 90 Tablet 3 11/12/2023 Active Hospital, Clinic, or Other Facility Administered Medication Ordered Dose Route Frequency Start Date End Date Status vitamin b-12 (Cyanocobalamin) inj 1,000 mcgIndications:B12 deficiency 1000 mcg IM [id number] 06/03/2023 05/03/2024 Active vitamin b-12 (Cyanocobalamin) inj 1,000 mcgIndications:Vitamin B12 deficiency 1000 mcg IM [id number] 11/12/2023 10/13/2024 Active documented as of this encounter (statuses as of 02/13/2024) Active Problems Problem Noted Date Diagnosed Date Vitamin B12 deficiency 08/12/2023 Mild dementia 05/31/2023 Overweight (BMI 25.0-29.9) 05/31/2023 HTN, goal below 130/80 04/30/2023 Senile osteoporosis 08/01/2017 Dyslipidemia 10/04/2009 Overview: Per Lipid Taxonomy. Subclinical hypothyroidism 07/03/1998 documented as of this encounter (statuses as of 02/13/2024) Resolved Problems Problem Noted Date Diagnosed Date Resolved Date Encounter for examination fo r normal comparison and control in clinical research program 02/15/2019 05/22/2020 Overview: DO NOT DELETE [facility] DETECT Study: Project # [id number], Packager And Strapper: Roscoe Baldwin, PhD. SUMMARY: Goal: Establish test [...] contact study staff at ; after hours Packager And Strapper via the [facility] tire recapping machine operator . Please contact study team before resolving/deleting from patients problem list. Study phone number: [phone]. Diagnosis changed due to Research Module. Go to Snapshot for study details. Encounter for examination fo r normal comparison and control in clinical research program 02/15/2019 06/20/2022 Overview: DO NOT DELETE - [facility] DETECT Study: Project # [id number], Packager And Strapper: Jesus Tolbert, MS, MPH. SUMMARY: Goal: Establish [...] contact study staff at ; after hours Packager And Strapper via the [facility] hospital tire recapping machine operator . - Please contact study team before resolving/deleting from patients problem list. Study phone number: [phone]. Diagnosis changed due to Research Module. Go [...] as of this encounter (statuses as of 02/13/2024) Immunizations Name Administration Dates Next Due COVID-19 [...] Telephone Encounter - Trish Peacock LPN - 02/13/2024 5:10 PM EDT Made pt aware and they expressed understanding. * Telephone Encounter - Trish Peacock LPN - 02/11/2024 11:57 AM EDT Called twice. Unable to leave voicemail. It's not set up yet. * Telephone Encounter - Bonnie Siddiqui MD - 02/10/2024 8:43 AM EDT Call pt-really her friend, given the degree of memory loss this pt has. MRI shows brain shrinkage-no surprise, but also one ot the bones of the spine doesn 't look right-don't worry likely an abnormal blood vessel, but I'll order a ct of spine; also she must get bw done enrique documented in this encounter Plan of Treatment Upcoming Encounters Date Type Department Care Team (Late st Contact Info) Description 02/18/2024 3:20 PM EDT Office Visit Family Practice [facility] [address] [place] [address] Alejo Coburn MD [address] [place] [address] 02/24/2024 11:30 AM EDT Imaging Radiology [facility] [address] [place] [address] 03/30/2024 1:40 PM EDT Office Visit Neurology [facility] [address] [place] [address] Bonnie Siddiqui MD 200 [facility] [place] [address] Scheduled Orders Name Type Priority Associated Diagnoses Orde r Schedule CT C SPINE W CONTRAST Medical Imaging Routine Abnormal CT of brain Expected: 02/24/2024, Expires: 03/11/2025 CREATININE Lab Routine Abnormal CT of brain Expected: 02/10/2024, Expires: 02/09/2025 Health Maintenance Due Date Last Done Comments [...] D LEVEL ONCE IN A LIFETIME-USE SMARTSET# [id number] Completed 05/16/2014, 05/01/2010 Pneumococcal Vaccine: 65+ Years [...] as of this encounter Visit Diagnoses Diagnosis Abnormal CT of brain- Primary Nonspecific (abnormal) findings on radiological and other examination of skull and head documented in this encounter Care Teams Patch Worker Relationship Specialty Start Date End Date Alejo Coburn MD [address] [place] [address] PCP - General Family Medicine 08/01/17 documented as of this encounter
--- OUTSIDE RECORDS SUMMARY | 2024-05-21 22:18 | External Medical Summary | Summary of Care ---
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 90 Tablet 3 11/12/2023 Active Rivastigmine 9.5 MG/24HR Transdermal Patch 24 Hour (Exelon) Place 1 Patch over 24 hours topically on the skin in the morning. 30 Patch 12 03/30/2024 Active Memantine HCl 5 MG Oral Tablet (Namenda) Take 1 Tablet by mouth in the morning and 1 Tablet before bedtime. 180 Tablet 3 08/12/2023 03/30/2024 Discontinue d(Patient preference/ discontinua tion) Rivastigmine 4.6 MG/24HR Transdermal Patch 24 Hour (Exelon) Place 1 Patch over 24 hours topically on the skin in the morning. 30 Patch 12 02/11/2024 03/30/2024 Discontinue d(Medicatio n/Dose Changed) Hospital, Clinic, or Other Facility Administered Medication Ordered Dose Route Frequency Start Date End Date Status vitamin b-12 (Cyanocobalamin) inj 1,000 mcgIndications:B12 deficiency 1000 mcg IM [id number] 06/03/2023 05/03/2024 Active vitamin b-12 (Cyanocobalamin) inj 1,000 mcgIndications:Vitamin B12 deficiency 1000 mcg IM [id number] 11/12/2023 10/13/2024 Active documented as of this encounter (statuses as of 03/30/2024) Active Problems Problem Noted Date Diagnosed Date Vitamin B12 deficiency 08/12/2023 Mild dementia 05/31/2023 Overweight (BMI 25.0-29.9) 05/31/2023 HTN, goal below 130/80 04/30/2023 Senile osteoporosis 08/01/2017 Dyslipidemia 10/04/2009 Overview: Per Lipid Taxonomy. Subclinical hypothyroidism 07/03/1998 documented as of this encounter (statuses as of 03/30/2024) Resolved Problems Problem Noted Date Diagnosed Date Resolved Date Encounter for examination fo r normal comparison and control in clinical research program 02/15/2019 05/22/2020 Overview: DO NOT DELETE [facility] DETECT Study: Project # [id number], Decorating Inspector: Roscoe Baldwin, PhD. SUMMARY: Goal: Establish test [...] contact study staff at ; after hours Decorating Inspector via the [facility] spreader box operator . Please contact study team before resolving/deleting from patients problem list. Study phone number: [phone]. Diagnosis changed due to Research Module. Go to Snapshot for study details. Encounter for examination fo r normal comparison and control in clinical research program 02/15/2019 06/20/2022 Overview: DO NOT DELETE - [facility] Study: Project # [id number], Decorating Inspector: Jesus Tolbert, MS, MPH. SUMMARY: Goal: Establish [...] contact study staff at ; after hours Decorating Inspector via the [facility] spreader box operator . - Please contact study team before resolving/deleting from patients problem list. Study phone number: [phone]. Diagnosis changed due to Research Module. Go [...] as of this encounter (statuses as of 03/30/2024) Immunizations Name Administration Dates Next Due COVID-19 mRNA, LNP-s, No Pre serve, 2-Dose Series (Pfizer) 01/16/2021 Pneumococcal Conjugate Vacc, 13 Valent (Prevnar) 02/27/2016 Pneumococcal Polysaccharide PPV23 (Pneumovax) Seasonal Influenza, Quadrivalent Hd (Fluzone Hd) 08/12/2023 Seasonal Influenza, Split, IIV3, With Preserve, Inj 08/18/2013 Seasonal Influenza, Trivalent, Adjuvanted, 65+ y rs 08/26/2019 TDAP (age 10 and older)(Boostrix) 03/10/2019 TDAP, Age 7 and older, IM (Adacel) 04/07/2008 Varicella Zoster Vaccine (Adult) 05/17/2011 documented [...] Sign Reading Time Taken Comments Blood Pressure 134/82 03/30/2024 1:47 PM EDT Pulse 60 03/30/2024 1:47 PM EDT Temperature 36.7 C (98.1 F) 03/30/2024 1:47 PM ED T Respiratory Rate 16 03/30/2024 1:47 PM EDT Oxygen Saturation 95% 03/30/2024 1:47 PM EDT Inhaled Oxygen Concentration - - Weight 73 kg (160 lb 14.4 oz) 03/30/2024 1:47 PM EDT Height - - Body Mass Index 29.43 02/18/2024 3:24 PM EDT documented in this encounter Progress Notes * Bonnie Siddiqui MD - 03/30/2024 1:55 PM EDT Progress [place] [id number] NAME: Cleopatra Edwards Date of : 1945 Date of Visit: 03/30/24 Chief Complaint: Chief Complaint Patient presents with Return Neuro Subjective: f/u memory loss; see family report Neuro ROS: neg for stroke sx HOME MEDICATIONS : Current Outpatient Medications Medication Sig Dispense Refill Memantine HCl 5 MG Oral Tablet (Namenda) Take 1 Tablet by mouth in the morning and 1 Tablet before bedtime. (Patient taking differently: Take 1 Tablet by mouth in the morning.) 180 Tablet 3 Lisinopril 10 MG Oral [...] mcg Intramuscular Q4 Weeks Alejo Coburn MD Review of patient's allergies indicates: Allergen Reactions Amoxicillin Aspirin GI upset Donepezil Unknown Lactose Intolerance Shellfish Hives PHYSICAL EXAMINATION: Vital Signs: BP 134/82 | Pulse 60 | Temp 36.7 C (98.1 F) (Tympanic) | Resp 16 | Wt 73 kg (160 lb 14.4 oz) | SpO2 95% | BMI 29.43 kg/m | BSA 1.79 m EXAM: Constitutional: appearance normally developed, well nourished. Head and Face: normocephalic and atraumatic Cardiovascular: heart sounds are normal. Rhythm is sinus NEUROLOGIC EXAM Higher integrative is intact to language and attention to examiner; Fund 1/3; memory 0/3 concrete abstraction. Cranial Nerves: CN 2 - no visual defect on confrontation and pupils round, equal, reactive to light CN 3, 4, 6 - extra-ocular movements intact and no nystagmus CN 7 - no facial asymmetry CN 9, 10 - palate symmetric CN 12 - tongue midline Motor: Normal, without pronator drift Coordination: Normal finger to nose and rapid alternating movement of lower extremities IMPRESSION / PLAN: Alzheimer's disease is getting worse. She is only able to take the memantine once a day so I am going to stop this. I am increasing the Exelon patch to 9.5 mg daily. Her son Kadeem gilliland to coordinate all this. He is going to be in contact with your office regarding home health care. He also voices understanding he is to put in applications to all available nursing homes. He also voices understanding that my opinion is that she is likely best managed in a jail but he wishes her to stay in her own home as long as possible. At some point I may want her to be on medication to help with the hallucinations/paranoia but I am going to wait to see the effect of maximizing the Exelon patch dose. documented in this encounter Nursing Notes * Keyla Rosenberg MED ASSIST - 03/30/2024 1:46 PM EDT Chief Complaint Patient presents with Return Neuro documented in this encounter Plan of Treatment Upcoming Encounters Date Type Department Care Team (Late st Contact Info) Description 08/23/2024 11:40 AM EST Office Visit [facility] [address] [place] [address] Alejo Coburn MD [address] [place] [address] Health Maintenance Due Date Last Done Comments Albumin/Creatinine Ratio 1963 Hepatitis C Screening 1963 Zoster Vaccines (2 of 3) 07/12/2011 05/17/2011 Depression Screening 08/26/2020 08/26/2019 *BISPHONATE OR OTHER ACCEPTABLE MEDICATION NEEDED FOR OSTEOPOROSIS (REFER TO SMARTSET #1146) 01/11/2022 DXA Scan 05/23/2022 05/23/2020, 05/20, 05/02/2014, Additional history exists COVID-19 Vaccine ( season) 2023 01/16/2021 GFR 04/30/2024 04/30/2023, 12/19, 06/14/2016, Additional history exists Mammogram 03/22/2025 03/22/2024, 05/20, 08/21/2010, Additional history exists DTaP,Tdap,and Td Vaccines (3 - Td or Tdap) 03/10/2029 03/10/2019, 04/07/2008 VITAMIN D LEVEL ONCE IN A LIFETIME-USE SMARTSET# [id number] Completed 05/16/2014, 05/01/2010 Pneumococcal Vaccine: 65+ Years [...] dementia with other behavioral disturbance (HCC)- Primary documented in this encounter Care Teams Clerk Of Court Relationship Specialty Start Date End Date Alejo Coburn MD [address] [place] [address] PCP - General Family Medicine 08/01/17 documented as of this encounter"
--- OUTSIDE RECORDS SUMMARY | 2024-05-21 22:19 | External Medical Summary | Summary of Care ---
Author Name Unknown Organization [facility] Address [address] [place] [address] Phone [phone] Care Team Providers Care Packing Shed Supervisor Name Role Phone Alejo Coburn MD Primary Care Provider [phone] Reason for Visit * Reason Onset Date Comments Advice 12/22/2023 Encounter Details Date Type Department Care Team (Late st Contact Info) Description 12/22/2023 Telephone Family Practice [facility] [address] [place] [address] Alejo Coburn MD [address] [place] [address] Advice Allergies Active Allergy Reactions Criticality Noted Date Comments Amoxicillin 07/23/2016 Aspirin 10/31/1999 GI upset Lactose Intolerance 10/31/1999 Shellfish 06/24/2003 Hives documented as of this encounter (statuses as of 12/23/2023) Medications Medication Sig Dispensed Refills Start Date [...] inj 1,000 mcgIndications:B12 deficiency 1000 mcg IM [id number] 06/03/2023 05/03/2024 Active vitamin b-12 (Cyanocobalamin) inj 1,000 mcgIndications:Vitamin B12 deficiency 1000 mcg IM [id number] 11/12/2023 10/13/2024 Active documented as of this encounter (statuses as of 12/23/2023) Active Problems Problem Noted Date Diagnosed Date Vitamin B12 deficiency 08/12/2023 Mild dementia 05/31/2023 Overweight (BMI 25.0-29.9) 05/31/2023 HTN, goal below 130/80 04/30/2023 Senile osteoporosis 08/01/2017 Dyslipidemia 10/04/2009 Overview: Per Lipid Taxonomy. Subclinical hypothyroidism 07/03/1998 documented as of this encounter (statuses as of 12/23/2023) Resolved Problems Problem Noted Date Diagnosed Date Resolved Date Encounter for examination fo r normal comparison and control in clinical research program 02/15/2019 05/22/2020 Overview: [facility] [employer] DET[facility] Study: Project # [id number], Card Game Operator: Roscoe Baldwin, PhD. SUMMARY: Goal: Establish test [...] contact study staff at ; after hours Card Game Operator via the [facility] hospital operator/assistant foreman . Please contact study team before resolving/deleting from patients problem list. Study phone number: [phone]. Diagnosis changed due to Research Module. Go to Snapshot for study details. Encounter for examination fo r normal comparison and control in clinical research program 02/15/2019 06/20/2022 Overview: DO NOT DELETE - [employer] DETECT Study: Project # [id number], Card Game Operator: Jesus H. Tolbert, MS, MPH. SUMMARY: Goal: Establish test [...] contact study staff at ; after hours Card Game Operator via the [facility] hospital operator/assistant foreman . - Please contact study team before resolving/deleting from patients problem list. Study phone number: [phone]. Diagnosis changed due to Research Module. Go [...] - 07/03/1998 09/04/2017 Calculus of kidney 10/20/1992 11/16/201 7 documented as of this encounter (statuses as of 12/23/2023) Immunizations Name Administration Dates Next Due COVID-19 [...] in the Last Year Never true 08/26/2019 Sex and Gender Information Value Date Recorded Sex Assigned at Female 03/10/2019 3:00 PM EDT Gender Identity Female 03/10/2019 3:00 PM EDT Sexual Orientation Not on file Job Start Date Occupation Industry Not on file Not on file Not on file documented as of this encounter Miscellaneous Notes * Telephone Encounter - Yanna Love OSA - 12/23/2023 3:51 PM EST Spoke with Suzette arriola sooner appt avail at this time. See prior notes. * Telephone Encounter - Brielle Mckeon LPN - 12/23/2023 2:26 PM EST LMOM for patient to return call * Telephone Encounter - Alejo Coburn MD - 12/23/2023 9:09 AM EST Patient has dementia. Not urgent. Okay to wait. * Telephone Encounter - Florecita Bright LPN - 12/23/2023 6:42 AM EST The soonest we could get her at this office would be , maybe with Dr. Wolf. Unless you think she needs seen sooner and we would would have to overbook you. Please advise. * Telephone Encounter - Roxana Myers OSA - 12/22/2023 2:19 PM EST No Appointments Available Patient declined appointments?: No What Visit Type is needed? Acute If Acute Visit Type is needed, were surrounding clinics offered to patient (Yes/No)? No, explain only wanted to be seen at [facility] Was patient offered appointments with other available providers (Yes/No)? Yes See Call Details? (Yes or No): No Spoke with Suzette (got verbal consent from Cleopatra who was next to her) who wanted to schedule an appointment for Cleopatra's worsening mental health. She states that she has been suffering hallucinations, agitation, anxiety, and paranoia. documented in this encounter Plan of Treatment Upcoming Encounters Date Type Department Care Team (Late st Contact Info) Description 01/06/2024 5:20 PM EDT Office Visit [facility] [address] [facility] [place] [address] Romulo Abdul CRNP [address] [place] [address] 02/11/2024 4:00 PM EDT Office Visit [facility] [address] [place] [address] Alejo Coburn MD [address] [place] [address] Health Maintenance Due Date Last Done Comments [...] D LEVEL ONCE IN A LIFETIME-USE SMARTSET# [id number] Completed 05/16/2014, 05/01/2010 Pneumococcal Vaccine: 65+ Years [...] filedocumented as of this encounter Care Teams Packing Shed Supervisor Relationship Specialty Start Date End Date Alejo Coburn MD [address] [place] [address] PCP - General Family Medicine 08/01/17 documented as of this encounter
--- OUTSIDE RECORDS SUMMARY | 2024-05-21 22:19 | External Medical Summary | Summary of Care ---
Author Name Unknown Organization [facility] Address [address] [place] [address] Phone [phone] Care Team Providers Care Teletypesetter Operator Name Role Phone Alejo Coburn MD Primary Care Provider [phone] [phone] Encounter Details Date Type Department Care Team (Late st Contact Info) Description 01/13/2024 Telephone Neurology [facility] [address] [place] [address] Bonnie Siddiqui MD [address] [place] [facility] [place] [address] Allergies Active Allergy Reactions Criticality Noted Date Comments Amoxicillin 07/23/2016 Aspirin 10/31/1999 GI upset Donepezil Unknown 01/13/2024 Lactose Intolerance 10/31/1999 Shellfish 06/24/2003 Hives documented as of this encounter (statuses as of 01/13/2024) Medications Medication Sig Dispensed Refills Start Date [...] inj 1,000 mcgIndications:B12 deficiency 1000 mcg IM [id number] 06/03/2023 05/03/2024 Active vitamin b-12 (Cyanocobalamin) inj 1,000 mcgIndications:Vitamin B12 deficiency 1000 mcg IM [id number] 11/12/2023 10/13/2024 Active documented as of this encounter (statuses as of 01/13/2024) Active Problems Problem Noted Date Diagnosed Date Vitamin B12 deficiency 08/12/2023 Mild dementia 05/31/2023 Overweight (BMI 25.0-29.9) 05/31/2023 HTN, goal below 130/80 04/30/2023 Senile osteoporosis 08/01/2017 Dyslipidemia 10/04/2009 Overview: Per Lipid Taxonomy. Subclinical hypothyroidism 07/03/1998 documented as of this encounter (statuses as of 01/13/2024) Resolved Problems Problem Noted Date Diagnosed Date Resolved Date Encounter for examination fo r normal comparison and control in clinical research program 02/15/2019 05/22/2020 Overview: DO NOT DELETE [employer] DETECT Study: Project # [id number], Survey Interviewer: Roscoe Baldwin, PhD. SUMMARY: Goal: Establish test [...] contact study staff at ; after hours Survey Interviewer via the [facility] hospital bit sharpener operator . Please contact study team before resolving/deleting from patients problem list. Study phone number: [phone]. Diagnosis changed due to Research Module. Go to Snapshot for study details. Encounter for examination fo r normal comparison and control in clinical research program 02/15/2019 06/20/2022 Overview: DO NOT DELETE - [employer] DETECT Study: Project # [id number], Survey Interviewer: Jesus Tolbert, MS, MPH. SUMMARY: Goal: Establish [...] contact study staff at ; after hours Survey Interviewer via the [facility] hospital bit sharpener operator . - Please contact study team before resolving/deleting from patients problem list. Study phone number: [phone]. Diagnosis changed due to Research Module. Go [...] as of this encounter (statuses as of 01/13/2024) Immunizations Name Administration Dates Next Due COVID-19 [...] Telephone Encounter - Bonnie Siddiqui MD - 01/13/2024 2:41 PM EDT I called Kadeem right after pt's visit; there are no weapons in the house; he should see my report in portal; he has taken her keys for nighttime driving; he voices understanding she should not drive atall, and that I am reporting this to the DMV documented in this encounter Plan of Treatment Upcoming Encounters Date Type Department Care Team (Late st Contact Info) Description 02/04/2024 12:30 PM EDT NeuroDiagnostic Study Neurophysiology Tommy [facility] [place] [address] [place] [address] Sp, Neurophys Tech [address] [facility] [place] [address] 02/05/2024 2:45 PM EDT Imaging Radiology [facility] [address] [facility] [place] [address] 02/11/2024 4:00 PM EDT Office Visit Family Practice [facility] [address] [facility] [place] [address] Alejo Coburn MD [address] [facility] [place] [address] 03/30/2024 1:40 PM EDT [facility] [address] [facility] [place] [address] Bonnie Siddiqui MD [address] [facility] [place] [address] Health Maintenance Due Date Last Done Comments [...] D LEVEL ONCE IN A LIFETIME-USE SMARTSET# [id number] Completed 05/16/2014, 05/01/2010 Pneumococcal Vaccine: 65+ Years [...] filedocumented as of this encounter Care Teams Teletypesetter Operator Relationship Specialty Start Date End Date Alejo Coburn MD [address] [facility] [place] [address] PCP - General Family Medicine 08/01/17 documented as of this encounter
--- OUTSIDE RECORDS SUMMARY | 2024-05-21 22:19 | External Medical Summary | Summary of Care ---
Author Name Unknown Organization [facility] Address [address] [place] [address] Phone [phone] Care Team Providers Care Rubber Factory Worker Name Role Phone Alejo Coburn MD Primary Care Provider [phone] Reason for Visit * Reason Onset Date Comments Referral 01/06/2024 Encounter Details Date Type Department Care Team (Late st Contact Info) Description 01/06/2024 Telephone Family Practice [facility] [address] [place] [address] Alejo Coburn MD [address] [place] [address] Referral Allergies Active Allergy Reactions Criticality Noted Date Comments Amoxicillin 07/23/2016 Aspirin 10/31/1999 GI upset Lactose Intolerance 10/31/1999 Shellfish 06/24/2003 Hives documented as of this encounter (statuses as of 01/07/2024) Medications Medication Sig Dispensed Refills Start Date End Date Status Memantine HCl 5 MG Oral Tablet (Namenda) Take 1 Tablet by mouth in the morning and 1 Tablet before bedtime. 180 Tablet 3 08/12/2023 Active Lisinopril 10 MG Oral Tablet (Prinivil) Take 1 Tablet by mouth in the morning. 90 Tablet 3 11/12/2023 Active Sulfamethoxazole-Trim ethoprim 800-160 MG Oral Tablet (Bactrim DS)Indications:Altere d mental status, unspecified altered mental status type Take 1 Tablet by mouth in the morning and 1 Tablet before bedtime. Until gone. 6 Tablet 0 01/06/2024 Active Hospital, Clinic, or Other Facility Administered Medication Ordered Dose Route Frequency Start Date End Date Status vitamin b-12 (Cyanocobalamin) inj 1,000 mcgIndications:B12 deficiency 1000 mcg IM [id number] 06/03/2023 05/03/2024 Active vitamin b-12 (Cyanocobalamin) inj 1,000 mcgIndications:Vitamin B12 deficiency 1000 mcg IM [id number] 11/12/2023 10/13/2024 Active documented as of this encounter (statuses as of 01/07/2024) Active Problems Problem Noted Date Diagnosed Date Vitamin B12 deficiency 08/12/2023 Mild dementia 05/31/2023 Overweight (BMI 25.0-29.9) 05/31/2023 HTN, goal below 130/80 04/30/2023 Senile osteoporosis 08/01/2017 Dyslipidemia 10/04/2009 Overview: Per Lipid Taxonomy. Subclinical hypothyroidism 07/03/1998 documented as of this encounter (statuses as of 01/07/2024) Resolved Problems Problem Noted Date Diagnosed Date Resolved Date Encounter for examination fo r normal comparison and control in clinical research program 02/15/2019 05/22/2020 Overview: DO NOT DELETE [facility] DETECT Study: Project # [id number], Home Specialist: Roscoe Baldwin, PhD. SUMMARY: Goal: Establish test [...] contact study staff at ; after hours Home Specialist via the [facility] hospital multigraph operator . Please contact study team before resolving/deleting from patients problem list. Study phone number: [phone]. Diagnosis changed due to Research Module. Go to Snapshot for study details. Encounter for examination fo r normal comparison and control in clinical research program 02/15/2019 06/20/2022 Overview: DO NOT DELETE - Nagi BROOKS Study: Project # [id number], Home Specialist: Jesus Tolbert, MS, MPH. SUMMARY: Goal: Establish [...] contact study staff at ; after hours Home Specialist via the [facility] hospital multigraph operator . - Please contact study team before resolving/deleting from patients problem list. Study phone number: [phone]. Diagnosis changed due to Research Module. Go [...] as of this encounter (statuses as of 01/07/2024) Immunizations Name Administration Dates Next Due COVID-19 [...] encounter Miscellaneous Notes * Telephone Encounter - Sherrie Lozoya OSA - 01/07/2024 8:05 AM EDT LM for pt to call back. They can schedule at any [facility] location and also be put on cx list * Telephone Encounter - Tanvi Sterling OSA - 01/06/2024 6:52 PM EDT Patient needs to schedule an appt with memory loss the refferal was put in there 01.06.24 my next available was not until next year. They did not want to accept that appt and would like to be called to schedule sooner please. documented in this encounter Plan of Treatment Upcoming Encounters Date Type Department Care Team (Late st Contact Info) Description 01/13/2024 1:40 PM EDT Office Visit Neurology [facility] [address] [facility] [place] [address] Bonnei Siddiqui MD [address] [facility] [place] [address] 02/11/2024 4:00 PM EDT Office Visit Family Practice [facility] [address] [place] [address] Alejo Coburn MD [address] [place] [address] Health Maintenance Due Date Last Done Comments [...] D LEVEL ONCE IN A LIFETIME-USE SMARTSET# [id number] Completed 05/16/2014, 05/01/2010 Pneumococcal Vaccine: 65+ Years [...] filedocumented as of this encounter Care Teams Rubber Factory Worker Relationship Specialty Start Date End Date Alejo Coburn MD [address] [facility] [place] [address] PCP - General Family Medicine 08/01/17 documented as of this encounter
--- OUTSIDE RECORDS SUMMARY | 2024-05-21 22:19 | External Medical Summary | Summary of Care ---
Author Name Unknown Organization [facility] Address [address] [place] [address] Phone [phone] Care Team Providers Care Cafeteria Food Server Name Role Phone Alejo Coburn MD Primary Care Provider [phone] [phone] Reason for Visit * Reason Onset Date Comments Referral 01/06/2024 Encounter Details Date Type Department Care Team (Late st Contact Info) Description 01/06/2024 Telephone Family Practice [facility] [address] [place] [address] Alejo Coburn MD [address] [place] [address] Referral Allergies Active Allergy Reactions Criticality Noted [...] inj 1,000 mcgIndications:B12 deficiency 1000 mcg IM [id number] 06/03/2023 05/03/2024 Active vitamin b-12 (Cyanocobalamin) inj 1,000 mcgIndications:Vitamin B12 deficiency 1000 mcg IM [id number] 11/12/2023 10/13/2024 Active documented as of this [...] [facility] DETECT Study: Project # [id number], Stove Cleaner: Roscoe Baldwin, PhD. SUMMARY: Goal: Establish test [...] contact study staff at ; after hours Stove Cleaner via the [facility] hospital coupling machine operator . Please contact study team before resolving/deleting from patients problem list. Study phone number: [phone]. Diagnosis changed due to Research Module. Go to Snapshot for study details. Encounter for examination fo r normal comparison and control in clinical research program 02/15/2019 06/20/2022 Overview: DO NOT DELETE - Nagi BROOKS Study: Project # [id number], Stove Cleaner: Jesus Tolbert, MS, MPH. SUMMARY: Goal: Establish [...] contact study staff at ; after hours Stove Cleaner via the [facility] hospital coupling machine operator . - Please contact study team before resolving/deleting from patients problem list. Study phone number: [phone]. Diagnosis changed due to Research Module. Go [...] encounter Miscellaneous Notes * Telephone Encounter - Gertrude Will OSA - 01/07/2024 12:22 PM EDT Scheduled Please call Suzette davis's friend at [phone]. She wanted to report an incident that happened last night with the pt * Telephone Encounter - Sherrie Lozoya OSA - 01/07/2024 8:05 AM EDT LM for pt to call back. They can schedule at any [facility] location and also be put on cx list * Telephone Encounter - Tanvi Sterling OSA - 01/06/2024 6:52 PM EDT Patient needs to schedule an appt with memory loss the refferal was put in there 3. my next available was not until next year. They did not want to accept that appt and would like to be called to schedule sooner please. documented in this encounter Plan of Treatment Upcoming Encounters Date Type Department Care Team (Late st Contact Info) Description 01/13/2024 1:40 PM EDT Office Visit Neurology [facility] [address] [facility] [place] [address] Bonnie Siddiqui MD [address] [facility] [place] [address] 02/11/2024 4:00 PM EDT Office Visit Family Practice [facility] [address] [place] [address] Alejo Coburn MD [address] [place] [address] Health Maintenance Due Date Last Done Comments Albumin/Creatinine Ratio 1963 Hepatitis C Screening 1963 Zoster Vaccines (2 of 3) 07/12/2011 05/17/2011 Mammogram 05/31/2016 05/31/2015, 11/0 11/2009, 08/04/2009, Additional history exists Depression Screening 08/26/2020 08/26/2019 *BISPHONATE OR OTHER ACCEPTABLE MEDICATION NEEDED FOR OSTEOPOROSIS (REFER TO SMARTSET #1146) 01/11/2022 DXA Scan 05/23/2022 05/23/2020, 05/20, 05/02/2014, Additional history exists COVID-19 Vaccine (2022- season) 2023 01/16/2021 GFR 04/30/2024 04/30/2023, 12/19, 06/14/2016, Additional history exists DTaP,Tdap,and Td Vaccines (3 - Td or Tdap) 03/10/2029 03/10/2019, 04/07/2008 VITAMIN D LEVEL ONCE IN A LIFETIME-USE SMARTSET# [id number] Completed 05/16/2014, 05/01/2010 Pneumococcal Vaccine: 65+ Years [...] filedocumented as of this encounter Care Teams Cafeteria Food Server Relationship Specialty Start Date End Date Alejo Coburn MD [address] [place] [address] PCP - General Family Medicine 08/01/17 documented as of this encounter
--- OUTSIDE RECORDS SUMMARY | 2024-05-21 22:19 | External Medical Summary | Summary of Care ---
Author Name Unknown Organization [facility] Address [address] [place] [address] Phone [phone] Care Team Providers Care Coater Carbon Paper Name Role Phone Alejo Coburn MD Primary Care Provider [phone] Reason for Visit * Reason Onset Date Comments EEG 02/11/2024 Encounter Details Date Type Department Care Team (Late st Contact Info) Description 02/11/2024 Telephone Neurology [facility] [address] [place] [address] Bonnie Siddiqui MD [address] [place] [address] EEG Allergies Active Allergy Reactions Criticality Noted [...] inj 1,000 mcgIndications:B12 deficiency 1000 mcg IM [id number] 06/03/2023 05/03/2024 Active vitamin b-12 (Cyanocobalamin) inj 1,000 mcgIndications:Vitamin B12 deficiency 1000 mcg IM [id number] 11/12/2023 10/13/2024 Active documented as of this [...] [facility] DETECT Study: Project # [id number], Bridal Consultant: Roscoe Baldwin, PhD. SUMMARY: Goal: Establish test [...] contact study staff at ; after hours Bridal Consultant via the [facility] handle rounder operator . Please contact study team before resolving/deleting from patients problem list. Study phone number: [phone]. Diagnosis changed due to Research Module. Go to Snapshot for study details. Encounter for examination fo r normal comparison and control in clinical research program 02/15/2019 06/20/2022 Overview: DO NOT DELETE - [employer]i Carl DETECT Study: Project # [id number], Bridal Consultant: Jesus Tolbert, MS, MPH. SUMMARY: Goal: Establish [...] contact study staff at ; after hours Bridal Consultant via the [facility] hospital handle rounder operator . - Please contact study team before resolving/deleting from patients problem list. Study phone number: [phone]. Diagnosis changed due to Research Module. Go [...] 3:20 PM EDT Office Visit Family Practice [facility] [address] [facility] [place] [address] Alejo Coburn MD 132 [facility] [place] [address] 02/24/2024 11:30 AM EDT Imaging Radiology [address] [facility] [place] [address] 03/30/2024 1:40 PM EDT Office Visit Neurology [facility] 200 [facility] [address] Bonnie Siddiqui MD [address] [facility] [address] Health Maintenance Due Date Last Done Comments Albumin/Creatinine Ratio 1963 Hepatitis C Screening 1963 Zoster Vaccines (2 of 3) 07/12/2011 05/17/2011 Mammogram 05/31/2016 05/31/2015, 11/2009, 08/04/2009, Additional history exists Depression Screening 08/26/2020 08/26/2019 *BISPHONATE OR OTHER ACCEPTABLE MEDICATION NEEDED FOR OSTEOPOROSIS (REFER TO SMARTSET #1146) 01/11/2022 DXA Scan 05/23/2022 05/23/2020, 05/20, 05/02/2014, Additional history exists COVID-19 Vaccine ( - season) 2023 01/16/2021 GFR 04/30/2024 04/30/2023, 12/19, 06/14/2016, Additional history exists DTaP,Tdap,and Td Vaccines (3 - Td or Tdap) 03/10/2029 03/10/2019, 04/07/2008 VITAMIN D LEVEL ONCE IN A LIFETIME-USE SMARTSET# [id number] Completed 05/16/2014, 05/01/2010 Pneumococcal Vaccine: 65+ Years [...] filedocumented as of this encounter Care Teams Coater Carbon Paper Relationship Specialty Start Date End Date Alejo Coburn MD [address] [place] [address] PCP - General Family Medicine 08/01/17 documented as of this encounter
--- OUTSIDE RECORDS SUMMARY | 2024-05-21 22:19 | External Medical Summary | Summary of Care ---
Author Name Unknown Organization [facility] Address [address] [place] [address] Phone [phone] Care Team Providers Care Public Weigher Name Role Phone Alejo Coburn MD Primary Care Provider [phone] [phone] Reason for Referral * Precert (Within 10 days (routine)) - Pending Review Specialty Diagnoses / Procedures Referred By Contac t Referred To Contact Radiology Diagnoses Abnormal CT of brain Procedures CT C SPINE W CONTRAST Bonnie Siddiqui MD [address] [facility] [place] [address] Referral ID Status Reason Start Date Expiration Date V isits Requested Visits Authorized [id number] Pending Review 02/24/2024 999 999 Reason for Visit * Reason Onset Date Comments abnormal imaging study 02/10/2024 Encounter Details Date Type Department Care Team (Late st Contact Info) Description 02/10/2024 Telephone Neurology [facility] [place] [facility] [place] [address] Bonnie Siddiqui MD [address] [facility] [place] [address] abnormal imaging study Allergies Active Allergy Reactions Criticality Noted Date Comments Amoxicillin 07/23/2016 Aspirin 10/31/1999 GI upset Donepezil Unknown 01/13/2024 Lactose Intolerance 10/31/1999 Shellfish 06/24/2003 Hives documented as of this encounter (statuses as of 02/10/2024) Medications Medication Sig Dispensed Refills Start Date [...] inj 1,000 mcgIndications:B12 deficiency 1000 mcg IM [id number] 06/03/2023 05/03/2024 Active vitamin b-12 (Cyanocobalamin) inj 1,000 mcgIndications:Vitamin B12 deficiency 1000 mcg IM [id number] 11/12/2023 10/13/2024 Active documented as of this encounter (statuses as of 02/10/2024) Active Problems Problem Noted Date Diagnosed Date Vitamin B12 deficiency 08/12/2023 Mild dementia 05/31/2023 Overweight (BMI 25.0-29.9) 05/31/2023 HTN, goal below 130/80 04/30/2023 Senile osteoporosis 08/01/2017 Dyslipidemia 10/04/2009 Overview: Per Lipid Taxonomy. Subclinical hypothyroidism 07/03/1998 documented as of this encounter (statuses as of 02/10/2024) Resolved Problems Problem Noted Date Diagnosed Date Resolved Date Encounter for examination fo r normal comparison and control in clinical research program 02/15/2019 05/22/2020 Overview: DO NOT DELETE [facility] DETECT Study: Project # [id number], Nutrition Worker: Roscoe Baldwin, PhD. SUMMARY: Goal: Establish test [...] contact study staff at ; after hours Nutrition Worker via the [facility] shoelace tipping machine operator . Please contact study team before resolving/deleting from patients problem list. Study phone number: [phone]. Diagnosis changed due to Research Module. Go to Snapshot for study details. Encounter for examination fo r normal comparison and control in clinical research program 02/15/2019 06/20/2022 Overview: DO NOT DELETE - [facility] DETECT Study: Project # [id number], Nutrition Worker: Jesus Tolbert, MS, MPH. SUMMARY: Goal: Establish [...] contact study staff at ; after hours Nutrition Worker via the [facility] shoelace tipping machine operator . - Please contact study team before resolving/deleting from patients problem list. Study phone number: [phone]. Diagnosis changed due to Research Module. Go [...] as of this encounter (statuses as of 02/10/2024) Immunizations Name Administration Dates Next Due COVID-19 [...] Team (Late st Contact Info) Description 02/11/2024 4:00 PM EDT Office Visit Family Practice [facility] [address] [place] [address] Alejo Coburn MD [address] [place] [address] 03/30/2024 1:40 PM EDT Office Visit Neurology [facility] [place] [address] Bonnie [facility] [address] Scheduled Orders Name Type Priority Associated Diagnoses [...] D LEVEL ONCE IN A LIFETIME-USE SMARTSET# [id number] Completed 05/16/2014, 05/01/2010 Pneumococcal Vaccine: 65+ Years [...] head documented in this encounter Care Teams Public Weigher Relationship Specialty Start Date End Date Alejo Coburn MD [address] [facility] [place] [address] PCP - General Family Medicine 08/01/17 documented as of this encounter
--- OUTSIDE RECORDS SUMMARY | 2024-05-21 22:19 | External Medical Summary | Summary of Care ---
Author Name Unknown Organization [facility] Address [address] [place] [address] Phone [phone] Care Team Providers Care Forensic Dna Analyst Name Role Phone Alejo Coburn MD Primary Care Provider [phone] [phone] Reason for Visit * Reason Onset Date Comments Referral 01/06/2024 Encounter Details Date Type Department Care Team (Late st Contact Info) Description 01/06/2024 Telephone Family Practice [facility] [address] [place] [address] Alejo Coburn MD [address] [place] [address] Referral Allergies Active Allergy Reactions Criticality Noted [...] inj 1,000 mcgIndications:B12 deficiency 1000 mcg IM [id number] 06/03/2023 05/03/2024 Active vitamin b-12 (Cyanocobalamin) inj 1,000 mcgIndications:Vitamin B12 deficiency 1000 mcg IM [id number] 11/12/2023 10/13/2024 Active documented as of this [...] [facility] DETECT Study: Project # [id number], Alterations Expert: Roscoe Baldwin, PhD. SUMMARY: Goal: Establish test [...] contact study staff at ; after hours Alterations Expert via the [facility] kiln operator helper . Please contact study team before resolving/deleting from patients problem list. Study phone number: [phone]. Diagnosis changed due to Research Module. Go to Snapshot for study details. Encounter for examination fo r normal comparison and control in clinical research program 02/15/2019 06/20/2022 Overview: DO NOT DELETE - [facility] BROOKS Study: Project # [id number], Alterations Expert: Jesus Tolbert, MS, MPH. SUMMARY: Goal: Establish [...] contact study staff at ; after hours Alterations Expert via the [facility] kiln operator helper . - Please contact study team before resolving/deleting from patients problem list. Study phone number: [phone]. Diagnosis changed due to Research Module. Go [...] encounter Miscellaneous Notes * Telephone Encounter - Florecita Bright LPN - 01/07/2024 2:00 PM EDT Just saw Romulo yesterday. I can take information, but cannot give information on pt. Called "friend". S/w Suzette. She was with Cleopatra and son, Kadeem last evening for appt. Pt does have UTI, and that is being treated. Cleopatra was banging on neighbors door last night, saying she lost car keys. Neighbor walked pt to car, and they found keys, then Cleopatra was saying that this homewas not her home. Did go out in car and drive around, son has GPS in car, and was watching her driving around. Son intercepted mother, and was able to get her home and she eventually went to bed. Friend is reporting that pt sometimes does not even know how to use his phone. Feels son is not taking her memory problems seriously and the courage/know how to handle her for the future. Friend has been trying to call son, he was not answering. Friend will be with pt at her app[facility] with neurology next [facility] [place] SEALS * Telephone Encounter - Gertrude Will OSA - 01/07/2024 12:22 PM EDT Scheduled Please call Suzette pt's friend at [phone]. She wanted to report an incident that happened last night with the pt * Telephone Encounter - Sherrie Lozoya OSA - 01/07/2024 8:05 AM EDT LM for pt to call back. They can schedule at any [facility] location and also be put on cx [...] 01/13/2024 1:40 PM EDT Office Visit Neurology [facility] [address] [facility] [place] [address] Bonnie Siddiqui MD [address] [facility] [place] [place] [address] 02/11/2024 4:00 PM EDT Office Visit Family Practice [facility] [address] [place] [address] Alejo Coburn MD [address] [place] [address] Health Maintenance Due Date Last Done Comments [...] D LEVEL ONCE IN A LIFETIME-USE SMARTSET# [id number] Completed 05/16/2014, 05/01/2010 Pneumococcal Vaccine: 65+ Years [...] filedocumented as of this encounter Care Teams Forensic Dna Analyst Relationship Specialty Start Date End Date Alejo Coburn MD [address] [place] [address] PCP - General Family Medicine 08/01/17 documented as of this encounter
--- OUTSIDE RECORDS SUMMARY | 2024-05-21 22:19 | External Medical Summary | Summary of Care ---
Author Name Unknown Organization [facility] Address [address] [place] [address] Phone [phone] Care Team Providers Care Hot Man Name Role Phone Alejo Coburn MD Primary Care Provider [phone] Reason for Visit * Reason Onset Date Comments Test Results 02/09/2024 Unexpected or In determinate Result Encounter Details Date Type Department Care Team (Late st Contact Info) Description 02/09/2024 Telephone Neurology [facility] [address] [place] [address] Bonnie Siddiqui MD [address] [facility] [address] Test Results (Unexpected or Indeterminate ... Allergies Active Allergy Reactions Criticality Noted Date Comments Amoxicillin 07/23/2016 Aspirin 10/31/1999 GI upset Donepezil Unknown 01/13/2024 Lactose Intolerance 10/31/1999 Shellfish 06/24/2003 Hives documented as of this encounter (statuses as of 02/09/2024) Medications Medication Sig Dispensed Refills Start Date [...] inj 1,000 mcgIndications:B12 deficiency 1000 mcg IM [id number] 06/03/2023 05/03/2024 Active vitamin b-12 (Cyanocobalamin) inj 1,000 mcgIndications:Vitamin B12 deficiency 1000 mcg IM [id number] 11/12/2023 10/13/2024 Active documented as of this encounter (statuses as of 02/09/2024) Active Problems Problem Noted Date Diagnosed Date Vitamin B12 deficiency 08/12/2023 Mild dementia 05/31/2023 Overweight (BMI 25.0-29.9) 05/31/2023 HTN, goal below 130/80 04/30/2023 Senile osteoporosis 08/01/2017 Dyslipidemia 10/04/2009 Overview: Per Lipid Taxonomy. Subclinical hypothyroidism 07/03/1998 documented as of this encounter (statuses as of 02/09/2024) Resolved Problems Problem Noted Date Diagnosed Date Resolved Date Encounter for examination fo r normal comparison and control in clinical research program 02/15/2019 05/22/2020 Overview: DO NOT DELETE [facility] DETECT Study: Project # [id number], Manager Strategic Development: Roscoe Baldwin, PhD. SUMMARY: Goal: Establish test [...] contact study staff at ; after hours Manager Strategic Development via the [facility] dedicated owner operator . Please contact study team before resolving/deleting from patients problem list. Study phone number: [phone]. Diagnosis changed due to Research Module. Go to Snapshot for study details. Encounter for examination fo r normal comparison and control in clinical research program 02/15/2019 06/20/2022 Overview: DO NOT DELETE - [facility] DETECT Study: Project # [id number], Manager Strategic Development: Jesus Tolbert, MS, MPH. SUMMARY: Goal: Establish [...] contact study staff at ; after hours Manager Strategic Development via the [facility] dedicated owner operator . - Please contact study team before resolving/deleting from patients problem list. Study phone number: [phone]. Diagnosis changed due to Research Module. Go [...] as of this encounter (statuses as of 02/09/2024) Immunizations Name Administration Dates Next Due COVID-19 [...] encounter Miscellaneous Notes * Telephone Encounter - Agustina Oh OSA - 02/09/2024 1:36 PM EDT Hello- The radiologist discovered an unexpected or indeterminate finding on Cleopatra Edwards ([id number]) and asksthat you review the following report. Study Type:MRI BRAIN W WO CONTRAST Date of Study: 02/05/2024 IMPRESSION 1. No acute intracranial pathology, space-occupying mass, or abnormal enhancement. 2. Global cerebral volume loss with chronic microvascular ischemic changes in the cerebral white matter and central jones. 3. Right cerebellopontine angle cistern arachnoid cyst. 4. Indeterminate, enhancing intraosseous structure within the anterior arch of C1. Differential considerations would include an intraosseous hemangioma or benign fibro-osseous lesion. Other etiologies, to include metastatic disease, cannot be excluded. Recommend dedicated MRI of the cervical spine for further characterization. CT cervical spine may also be helpful to better define the bony anatomy. Please respond to this encounter to acknowledge receipt of this message and take responsibility to ensure this report is reviewed. Thank you, ARIN Azevedo Client Service Rep [facility] documented in this encounter Plan of Treatment Upcoming Encounters Date Type Department Care Team (Late st Contact Info) Description 02/11/2024 4:00 PM EDT Office Visit [facility] [address] [place] [address] Alejo Coburn MD [address] [place] [address] 03/30/2024 1:40 PM EDT Office Visit Neurology [facility] 200 [facility] [place] [address] Bonnie Siddiqui MD [address] [facility] [place] [address] Health Maintenance Due Date Last Done Comments [...] D LEVEL ONCE IN A LIFETIME-USE SMARTSET# [id number] Completed 05/16/2014, 05/01/2010 Pneumococcal Vaccine: 65+ Years [...] filedocumented as of this encounter Care Teams Hot Man Relationship Specialty Start Date End Date Alejo Coburn MD [address] [place] [address] PCP - General Family Medicine 08/01/17 documented as of this encounter
--- OUTSIDE RECORDS SUMMARY | 2024-05-21 22:19 | External Medical Summary | Summary of Care ---
Author Name Unknown Organization [facility] Address [address] [place] [address] Phone [phone] Care Team Providers Care Wall Steamer Name Role Phone Alejo Coburn MD Primary Care Provider [phone] Reason for Visit * Reason Onset Date Comments Forms Request 01/13/2024 Initial reportin g Encounter Details Date Type Department Care Team (Late st Contact Info) Description 01/13/2024 Telephone Neurology [facility] [address] [place] [address] Bonnie Siddiqui MD [address] [facility] [address] Forms Request (Initial reporting) Allergies Active Allergy Reactions Criticality Noted Date [...] inj 1,000 mcgIndications:B12 deficiency 1000 mcg IM [id number] 06/03/2023 05/03/2024 Active vitamin b-12 (Cyanocobalamin) inj 1,000 mcgIndications:Vitamin B12 deficiency 1000 mcg IM [id number] 11/12/2023 10/13/2024 Active documented as of this [...] program 02/15/2019 05/22/2020 Overview: DO NOT DELETE [facility] DETECT Study: Project # [id number], Broadcast Correspondent: Roscoe Baldwin, PhD. SUMMARY: Goal: Establish test [...] contact study staff at ; after hours Broadcast Correspondent via the [facility] power tong operator . Please contact study team before resolving/deleting from patients problem list. Study phone number: [phone]. Diagnosis changed due to Research Module. Go to Snapshot for study details. Encounter for examination fo r normal comparison and control in clinical research program 02/15/2019 06/20/2022 Overview: DO NOT DELETE - [facility] DETECT Study: Project # [id number], Broadcast Correspondent: Jesus Tolbert, MS, MPH. SUMMARY: Goal: Establish [...] contact study staff at ; after hours Broadcast Correspondent via the [facility] power tong operator . - Please contact study team before resolving/deleting from patients problem list. Study phone number: [phone]. Diagnosis changed due to Research Module. Go [...] 9 Overview: Per Lipid Taxonomy. MENOPAUSE - 07/03/199809/04/2017 Calculus of kidney 10/20/1992 7 documented as [...] encounter Miscellaneous Notes * Telephone Encounter - Keyla Rosenberg MED ASSIST - 01/13/2024 3:16 PM EDT Initial reporting form faxed to [employer]. Form in scanning documented in this encounter Plan of Treatment Upcoming Encounters Date Type Department Care Team (Late st Contact Info) Description 02/04/2024 12:30 PM EDT NeuroDiagnostic Study Neurophysiology [facility] [address] [facility] [place] [address] Sp, Neurophys Tech [address] [facility] [place] [address] 02/05/2024 2:45 PM EDT Imaging Radiology [address] [facility] [place] [address] 02/11/2024 4:00 PM EDT Office Visit Family Practice [facility] [address] [facility] [place] [address] Alejo Coburn MD 132 [facility] [place] [address] 03/30/2024 1:40 PM EDT Office Visit Neurology [facility] [place] [address] [place] [address] Bonnie Siddiqui MD [address] [place] [address] Health Maintenance Due Date Last Done Comments [...] D LEVEL ONCE IN A LIFETIME-USE SMARTSET# [id number] Completed 05/16/2014, 05/01/2010 Pneumococcal Vaccine: 65+ Years [...] filedocumented as of this encounter Care Teams Wall Steamer Relationship Specialty Start Date End Date Alejo Coburn MD [address] [place] [address] PCP - General Family Medicine 08/01/17 documented as of this encounter
--- OUTSIDE RECORDS SUMMARY | 2024-05-21 22:19 | External Medical Summary ---
Author Name Unknown Address Unknown Organization K0G:[facility] [place] [facility] - [address] [place] [address] Laboratory Report Ordering Provider Test Date Status NADIRA PARK 01/06/2024 18:20:00 Final Observation Date Value Abnormality Reference (Units ) Status Color of Urine by Auto 01/06/2024 18:20:00 Dark Yellow Abnormal Light Yellow, Yellow Final Clarity, Urine 01/06/2024 18:20:00 Clear Clear Final Glucose [Mass/volume] in Urine by Automated test strip 01/06/2024 18:20:00 Negative Negative (mg/dL) Final Bilirubin.total [Presence] in Urine by Automated test strip 01/06/2024 18:20:00 Negative Negative Final Ketones [Mass/volume] in Urine by Automated test strip 01/06/2024 18:20:00 Negative Negative (mg/dL) Final Specific gravity, Urine 01/06/2024 18:20:00 >=1.030 1.003-1.030 Final Hemoglobin [Presence] in Urine by Automated test strip 01/06/2024 18:20:00 Small Abnormal Negative Final pH, Urine 01/06/2024 18:20:00 5.5 5.0, 5.5, 6.0, 6.5, 7.0, 7.5 (units) Final Protein [Mass/volume] in Urine by Automated test strip 01/06/2024 18:20:00 Negative Negative (mg/dL) Final Urobilinogen, Urine 01/06/2024 18:20:00 1.0 0.2, 1.0 (mg/dL) Final Nitrite [Presence] in Urine by Automated test strip 01/06/2024 18:20:00 Negative Negative Final Leukocyte esterase [Presence] in Urine by Automated test strip 01/06/2024 18:20:00 Small Abnormal Negative Final Performing Location [facility] [place] [facility] - [address] [place] [address]
--- OUTSIDE RECORDS SUMMARY | 2024-05-21 22:19 | External Medical Summary | Summary of Care ---
Author Name Unknown Organization [facility] Address [address] [place] [address] Phone [phone] Care Team Providers Care Remanufacturing Technician Name Role Phone Alejo Coburn MD Primary Care Provider [phone] [phone] Reason for Visit * Reason Onset Date Comments Referral 01/06/2024 Encounter Details Date Type Department Care Team (Late st Contact Info) Description 01/06/2024 Telephone Family Practice [facility] [address] [place] [address] Alejo Coburn MD [address] [place] [address] Referral Allergies Active Allergy Reactions Criticality Noted Date Comments Amoxicillin 07/23/2016 Aspirin 10/31/1999 GI upset Lactose Intolerance 10/31/1999 Shellfish 06/24/2003 Hives documented as of this encounter (statuses as of 01/09/2024) Medications Medication Sig Dispensed Refills Start Date [...] inj 1,000 mcgIndications:B12 deficiency 1000 mcg IM [id number] 06/03/2023 05/03/2024 Active vitamin b-12 (Cyanocobalamin) inj 1,000 mcgIndications:Vitamin B12 deficiency 1000 mcg IM [id number] 11/12/2023 10/13/2024 Active documented as of this encounter (statuses as of 01/09/2024) Active Problems Problem Noted Date Diagnosed Date Vitamin B12 deficiency 08/12/2023 Mild dementia 05/31/2023 Overweight (BMI 25.0-29.9) 05/31/2023 HTN, goal below 130/80 04/30/2023 Senile osteoporosis 08/01/2017 Dyslipidemia 10/04/2009 Overview: Per Lipid Taxonomy. Subclinical hypothyroidism 07/03/1998 documented as of this encounter (statuses as of 01/09/2024) Resolved Problems Problem Noted Date Diagnosed Date Resolved Date Encounter for examination fo r normal comparison and control in clinical research program 02/15/2019 05/22/2020 Overview: DO NOT DELETE [facility] DETECT Study: Project # [id number], Checker Cashier: Roscoe Baldwin, PhD. SUMMARY: Goal: Establish test [...] contact study staff at ; after hours Checker Cashier via the [facility] hospital classifier operator . Please contact study team before resolving/deleting from patients problem list. Study phone number: [phone]. Diagnosis changed due to Research Module. Go to Snapshot for study details. Encounter for examination fo r normal comparison and control in clinical research program 02/15/2019 06/20/2022 Overview: DO NOT DELETE - [facility] BROOKS Study: Project # [id number], Checker Cashier: Jesus Tolbert, MS, MPH. SUMMARY: Goal: Establish [...] contact study staff at ; after hours Checker Cashier via the [facility] hospital classifier operator . - Please contact study team before resolving/deleting from patients problem list. Study phone number: [phone]. Diagnosis changed due to Research Module. Go [...] as of this encounter (statuses as of 01/09/2024) Immunizations Name Administration Dates Next Due COVID-19 [...] Telephone Encounter - Florecita Bright LPN - 01/09/2024 7:[address] Siddiqui, it's just an FYI since you are seeing her next week. * Telephone Encounter - Florecita Bright LPN [...] [facility] [place] * Telephone Encounter - Gertrude Will OSA - 01/07/2024 12:22 PM EDT Scheduled Please call Suzette pt's friend at [phone]. She wanted to report an incident that happened last night with the pt * Telephone Encounter - Sherrie Lozoya OSA - 01/07/2024 8:05 AM EDT LM for pt to call back. They can schedule at any [facility] location and also be put on cx [...] 01/13/2024 1:40 PM EDT Office Visit Neurology [facility] 200 [facility] [address] Bonnie Siddiqui MD [address] [facility] [place] [address] 02/11/2024 4:00 PM EDT Office Visit Family Practice [facility] [address] [place] [address] Alejo Coburn MD [address] [place] [address] Health Maintenance Due Date Last Done Comments [...] D LEVEL ONCE IN A LIFETIME-USE SMARTSET# [id number] Completed 05/16/2014, 05/01/2010 Pneumococcal Vaccine: 65+ Years [...] filedocumented as of this encounter Care Teams Remanufacturing Technician Relationship Specialty Start Date End Date Alejo Coburn MD [address] [place] [address] PCP - General Family Medicine 08/01/17 documented as of this encounter
--- OUTSIDE RECORDS SUMMARY | 2024-05-21 22:19 | External Medical Summary ---
Author Name Unknown Address Unknown Organization K01[facility] [place] [address] [place] [facility] [address] Laboratory Report Ordering Provider Test Date Status NADIRA PARK 01/06/2024 18:48:26 Final Observation Date Value Abnormality Reference (Units) Status Bacteria identified in Specimen by Culture 01/06/2024 18:48:26 No significant growth Final Test: Culture, Urine, Quanti tative
Specimen Source: Urine, Clean Catch
Specimen Type: Urine
Specimen Date: 01/06/2024 6:48 PM
Result Date: 01/08/2024 8:48 AM
Result Status: Final result
Resulting Lab: [facility] [place]
[address]
[place] [address]

CULTURE

No significant growth

null Performing Location [facility] [place] [address] [facility] [address]
--- OUTSIDE RECORDS SUMMARY | 2024-05-21 22:19 | External Medical Summary | Summary of Care ---
Author Name Unknown Organization [facility] Address [address] [place] [address] Phone [phone] Care Team Providers Care Airport Representative Name Role Phone Alejo Coburn MD Primary Care Provider [phone] Encounter Details Date Type Department Care Team (Late st Contact Info) Description 01/08/2024 Telephone Family Practice [facility] [address] [place] [address] Romulo Abdul CRNP [address] [place] [address] Allergies Active Allergy Reactions Criticality Noted Date [...] inj 1,000 mcgIndications:B12 deficiency 1000 mcg IM [id number] 06/03/2023 05/03/2024 Active vitamin b-12 (Cyanocobalamin) inj 1,000 mcgIndications:Vitamin B12 deficiency 1000 mcg IM [id number] 11/12/2023 10/13/2024 Active documented as of this [...] program 02/15/2019 05/22/2020 Overview: DO NOT DELETE [facility] DETECT Study: Project # [id number], Director Of Category Management: Roscoe Baldwin, PhD. SUMMARY: Goal: Establish test [...] contact study staff at ; after hours Director Of Category Management via the [facility] tape recording machine operator . Please contact study team before resolving/deleting from patients problem list. Study phone number: [phone]. Diagnosis changed due to Research Module. Go to Snapshot for study details. Encounter for examination fo r normal comparison and control in clinical research program 02/15/2019 06/20/2022 Overview: DO NOT DELETE - [facility] DETECT Study: Project # [id number], Director Of Category Management: Jesus Tolbert, MS, MPH. SUMMARY: Goal: Establish [...] contact study staff at ; after hours Director Of Category Management via the [facility] tape recording machine operator . - Please contact study team before resolving/deleting from patients problem list. Study phone number: [phone]. Diagnosis changed due to Research Module. Go [...] Encounter - Florecita Bright LPN - 01/09/2024 7:22 AM EDT S/w son, Kadeem. Aware no bacteria growth and ok to stop Bactrim. Follow up with Neurology next week. Son states understanding. * Telephone Encounter - Romulo Abdul CRNP - 01/08/2024 8:56 AM EDT No significant bacterial growth in her urine. She can stop Bactrim. documented in this encounter Plan of Treatment Upcoming Encounters Date Type Department Care Team (Late st Contact Info) Description 01/13/2024 1:40 PM EDT Office Visit Neurology [facility] [address] [facility] [place] [address] Bonnie Siddiqui MD [address] [facility] [place] [address] 02/11/2024 4:00 PM EDT Office Visit Family Practice [facility] [address] [place] [address] Alejo Coburn MD [address] [place] [address] Health Maintenance Due Date Last Done Comments [...] D LEVEL ONCE IN A LIFETIME-USE SMARTSET# [id number] Completed 05/16/2014, 05/01/2010 Pneumococcal Vaccine: 65+ Years [...] filedocumented as of this encounter Care Teams Airport Representative Relationship Specialty Start Date End Date Alejo Coburn MD [address] [place] [address] PCP - General Family Medicine 08/01/17 documented as of this encounter
--- OUTSIDE RECORDS SUMMARY | 2024-05-21 22:19 | External Medical Summary | Summary of Care ---
Author Name Unknown Organization [facility] Address [address] [place] [address] Phone [phone] Care Team Providers Care General Internal Medicine Physician Name Role Phone Alejo Coburn MD Primary Care Provider [phone] Reason for Visit * Reason Comments EEG Encounter Details Date Type Department Care Team (Late st Contact Info) Description 02/04/2024 12:30 PM EDT NeuroDiagnostic Study Neurophysiology [facility] [address] [place] [address] Sp, Neurophys Tech [address] [facility] [place] [address] Allergies Active Allergy Reactions Criticality Noted Date [...] inj 1,000 mcgIndications:B12 deficiency 1000 mcg IM [id number] 06/03/2023 05/03/2024 Active vitamin b-12 (Cyanocobalamin) inj 1,000 mcgIndications:Vitamin B12 deficiency 1000 mcg IM [id number] 11/12/2023 10/13/2024 Active documented as of this [...] program 02/15/2019 05/22/2020 Overview: DO NOT DELETE [facility] DETECT Study: Project # [id number], Copy Worker: Roscoe Baldwin, PhD. SUMMARY: Goal: Establish [...] contact study staff at ; after hours Copy Worker via the [facility] cloth cutting machine operator . Please contact study team before resolving/deleting from patients problem list. Study phone number: [phone]. Diagnosis changed due to Research Module. Go to Snapshot for study details. Encounter for examination fo r normal comparison and control in clinical research program 02/15/2019 06/20/2022 Overview: DO NOT DELETE [employer] [facility] DETECT Study: Project # [id number], Copy Worker: Jesus Tolbert, MS, MPH. SUMMARY: Goal: [...] contact study staff at ; after hours Copy Worker via the [facility] cloth cutting machine operator . - Please contact study team before resolving/deleting from patients problem list. Study phone number: [phone]. Diagnosis changed due to Research Module. Go [...] on file documented as of this encounter Progress Notes * Rickie Lou, - 02/11/2024 6:26 AM EDT ROUTINE EEG REPORT Name: Cleopatra Edwards Date of study: 02/04/24, 12:47-13:16 Age: [age] year old Outpatient Referring Physician: Bonnie Siddiqui MD TECHNICAL REMARKS: This is a technically satisfactory eighteen channel record employing 21 disc electrodes applied according to a measured international 10-20 electrode placement system. There were no significant technical difficulties. CLINICAL INFORMATION: A 78 year old female with alzheimer disease. EEG performed for evaluation of epileptiform activity. MEDICATIONS: Current Outpatient Medications Medication Sig Dispense Refill Memantine HCl 5 MG Oral Tablet (Namenda) Take 1 Tablet by mouth in the morning and 1 Tablet before bedtime. 180 Tablet 3 Lisinopril 10 MG Oral Tablet (Prinivil) Take 1 Tablet by mouth in the morning. 90 Tablet 3 Current Facility-Administered Medications Medication Dose Route Frequency Provider Last Rate Last Admin vitamin b-12 (Cyanocobalamin) inj 1,000 mcg 1,000 mcg Intramuscular Q4 Weeks Shaneka Wolf MD 1,000 mcg at 11/12/23 1156 vitamin b-12 (Cyanocobalamin) inj 1,000 mcg 1,000 mcg Intramuscular Q4 Weeks Alejo Coburn MD REPORT: At the onset of the EEG the patient is awake. Background is continuous although appears asymmetric. The posterior dominant rhythm is 6-7 Hz best seen on the left. There is continuous or nearly continuous focal slowing in the right frontotemporal head region. Drowsiness is characterized by increased theta activity with some intermixed delta activity. No stage 2 sleep transients are seen. Photic stimulation does not induce any abnormalities. IMPRESSION: This is an abnormal awake and drowsy routine EEG due to 1. Generalized background slowing suggestive of a nonspecific encephalopathy, 2. Nearly continuous focal slowing in the right frontotemporal head region suggestive of an underlying structural abnormality or neuronal dysfunction. No epileptiform activity is seen. Rickie Lou DO documented in this encounter Plan of Treatment Upcoming Encounters Date Type Department Care Team (Late st Contact Info) Description 02/18/2024 3:20 PM EDT Office Visit Family Practice [facility] [address] [place] [address] Alejo Coburn MD [address] [place] [address] 02/24/2024 11:30 AM EDT Imaging Radiology [address] [place] [address] 03/30/2024 1:40 PM EDT Office Visit Neurology [facility] [address] [facility] [place] [address] Bonnie Siddiqui MD [address] [facility] [place] [address] Scheduled Orders Name Type Priority Associated Diagnoses Orde r Schedule EEG ROUTINE Procedures Routine 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
--- OUTSIDE RECORDS SUMMARY | 2024-05-21 22:19 | External Medical Summary | Summary of Care ---
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) Procedures MRI BRAIN W WO CONTRAST Helena Zhong MD 200 [facility] [place] [address] Referral ID Status Reason Start Date Expiration Date V isits Requested Visits Authorized [id number] Pending Review 01/13/2024 999 999 Reason for Visit * Reason Comments NEW PATIENT Alzheimer's Disease * Evaluate & Treat - Unlimited Visits (Within 30 days (routine)) - Authorized Specialty Diagnoses / Procedures Referred By Lvear carlton Referred To Contact Neurology Diagnoses Mild early onset Alzheimer's dementia without behavioral disturbance, psychotic disturbance, mood disturbance, or anxiety (HCC) Romulo Abdul CRNP [address] [place] [address] Referral ID Status Reason Start Date Expiration Date Visits Requested Visits Authorized [id number] Authorized Specialty Services Required 01/06/2024 999 [id number] Encounter Details Date Type Department Care Team (Late st Contact Info) Description 01/13/2024 1:40 PM EDT Office Visit Neurology Tommy [place] 200 [facility] [place] [address] Helena Zhong MD [address] [place] [address], [place] [address] 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 30 Patch 12 02/11/2024 Active Sulfamethoxazole- Trimethoprim 800-160 MG Oral Tablet (Bactrim DS)Indications:Al tered mental status, unspecified altered mental status type Take 1 Tablet by mouth in the morning and 1 Tablet before bedtime. Until gone. 6 Tablet 0 01/06/2024 01/13/2024 Discontinue d(Medicatio n List Clean Up) Hospital, Clinic, or Other Facility Administered Medication Ordered Dose Route Frequency Start Date End Date Status vitamin b-12 (Cyanocobalamin) inj 1,000 mcgIndications:B12 deficiency 1000 mcg IM [id number] 06/03/2023 05/03/2024 Active vitamin b-12 (Cyanocobalamin) inj 1,000 mcgIndications:Vitamin B12 deficiency 1000 mcg IM [id number] 11/12/2023 10/13/2024 Active documented as of this [...] program 02/15/2019 05/22/2020 Overview: DO NOT DELETE [facility] DETECT Study: Project # [id number], Fire Officer: Roscoe Baldwin, PhD. SUMMARY: Goal: Establish test [...] contact study staff at ; after hours Fire Officer via the [facility] tower control operator . Please contact study team before resolving/deleting from patients problem list. Study phone number: [phone]. Diagnosis changed due to Research Module. Go to Snapshot for study details. Encounter for examination fo r normal comparison and control in clinical research program 02/15/2019 06/20/2022 Overview: DO NOT DELETE - [employer] DETECT Study: Project # [id number], Fire Officer: Jesus Tolbert, MS, MPH. SUMMARY: Goal: Establish [...] contact study staff at ; after hours Fire Officer via the [facility] tower control operator . - Please contact study team before resolving/deleting from patients problem list. Study phone number: [phone]. Diagnosis changed due to Research Module. Go [...] Sign Reading Time Taken Comments Blood Pressure 150/76 01/13/2024 1:18 PM EDT Pulse 96 01/13/2024 1:18 PM EDT Temperature 36.9 C (98.5 F) 01/13/2024 1:18 PM ED T Respiratory Rate 16 01/13/2024 1:18 PM EDT Oxygen Saturation 95% 01/13/2024 1:18 PM EDT Inhaled Oxygen Concentration - - Weight 71.9 kg (158 lb 8 oz) 01/13/2024 1:18 PM EDT Height - - Body Mass Index 28.99 01/06/2024 5:08 PM EDT documented in this encounter Progress Notes * Helena Zhong MD - 01/13/2024 1:33 PM EDT HISTORY AND PHYSICAL EXAMINATION - Neurology [address] [place] [address] NAME: Cleopatra Edwards Date of : 1945 Date of Visit: 01/13/24 Chief Complaint: Chief Complaint Patient presents with NEW PATIENT Alzheimer's Disease HPI: Cleopatra Edwards is a 78 year old female presenting with Memory disorder. She is accompanied by herfriend Leesa who provide some of the documentation. Duration has been for at least a year and the quality is that of confusing different relations such as her father and brother and son. There is also profound hallucinations which is consistently a dog coming to her house. Timing is ongoing. Thereis no accompanying hallucinations of smell or taste, nor is there any lapse of consciousness. This is being modified by Namenda 5 mg twice daily. HOME MEDICATIONS : Current Outpatient Medications Medication Sig Dispense Refill Memantine HCl 5 MG Oral Tablet (Namenda) Take 1 Tablet by mouth in the morning and 1 Tablet before bedtime. 180 Tablet 3 Lisinopril 10 MG Oral Tablet (Prinivil) Take 1 Tablet by mouth in the morning. 90 Tablet 3 Sulfamethoxazole-Trimethoprim 800-160 MG Oral Tablet (Bactrim DS) Take 1 Tablet by mouth in the morning and 1 Tablet before bedtime. Until gone. (Patient not taking: Reported on 01/13/2024) 6 Tablet 0 Current Facility-Administered Medications Medication Dose Route Frequency Provider Last Rate Last Admin vitamin b-12 (Cyanocobalamin) inj 1,000 mcg 1,000 mcg Intramuscular Q4 Weeks Shaneka Wolf MD 1,000 mcg at 11/12/23 1156 vitamin b-12 (Cyanocobalamin) inj 1,000 mcg 1,000 mcg Intramuscular Q4 Weeks Alejo Coburn MD Review of patient's allergies indicates: Allergen Reactions Amoxicillin Aspirin GI upset Lactose Intolerance Shellfish Hives Past Medical History: Diagnosis Date Cystitis 05/31/2023 10-100,000 enterococcus, resistant to tetracycline HTN, goal below 130/80 04/30/2023 Hypothyroidism Mild dementia (HCC) 05/31/2023 OSTEOPOROSIS NOS 01/16/2000 Overweight (BMI 25.0-29.9) 05/31/2023 Right wrist fracture 2010 Vitamin B12 deficiency 08/12/2023 Voice and resonance disorder, unspecified 2001 Past Surgical History: Procedure Laterality Date ARTHROPLASTY KNEE TOTAL 04/2012 right- Dr. 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 Tobacco Use Smoking status: Never Smokeless tobacco: Never Substance and Sexual Activity Alcohol use: Yes Comment: rare Drug use: No Sexual activity: Not Currently Partners: Male Other Topics Concern Not on file Social History Narrative Not on file Social Determinants of Health Financial Resource Strain: Not on file Food Insecurity: No Food Insecurity (08/26/2019) Hunger Vital Sign Worried About Running Out of Food in the Last Year: Never true Ran Out of Food in the Last Year: Never true Transportation Needs: Not on file Physical Activity: Not on file Stress: Not on file Social Connections: Not on file Intimate Partner Violence: Not on file Housing Stability: Not on file ROS: Review of Systems Constitutional: Negative. HENT: Negative. Eyes: Negative. Respiratory: Negative. Cardiovascular: Negative. Gastrointestinal: Negative. Endocrine: Negative. Genitourinary: Negative. Musculoskeletal: Negative. Allergic/Immunologic: Negative. Neurological: Negative. Hematological: Negative. Psychiatric/Behavioral: Negative. All other systems reviewed and are negative. PHYSICAL EXAMINATION: Vital Signs: BP 150/76 | Pulse 96 | Temp 36.9 C (98.5 F) (Tympanic) | Resp 16 | Wt 71.9 kg (158 lb 8 oz) | SpO2 95% | BMI 28.99 kg/m | BSA 1.77 m EXAM: Constitutional: appearance normally developed, with no deformities Heart sounds are normal Examination of the peripheral vascular system by observation does not reveal varicosity or edema. Palpation reveals normal pulses and temperature Carotid arteries reveal no bruit. NEUROLOGIC EXAMINATION: Appearance: no acute distress Opthalmoscopic: disc flat, normal fundus The patient's higher integrative she has not oriented to month and year, memory is 0/3 fund is 0/3 although abstraction is normal. She has no ongoing hallucinations at this time. During the interviewshe forget that her brother had Speech: no dysarthria Cranial Nerves: CN 2 - no visual defect on confrontation. CN 3, 4, 6 - extra-ocular movements intact and no nystagmus; with round pupils appropriately reactive to light and accomodation CN 5 - facial sensation intact CN 7 - no facial asymmetry CN 8 - intact hearing CN 9, 10 - palate symmetric CN 11 - good shoulder shrug CN 12 - tongue midline Gait and station: normal Coordination: normal finger to nose testing and rapid alternating movements of the lower extremities. No tremor is seen. Sensory: intact to light touch and pain Muscle Tone: normal Muscle exam:Nl in all extremities without pronator drift. Reflexes: Hypo with downgoing toes IMPRESSION / PLAN: This patient clearly has a memory disorder with some degree of hallucinations. She likely either has Alzheimer's disease or Lewy body dementia. I am proceeding with MRI of the brain EEG and blood studies for reversible cognitive difficulties. In all likelihood I will be increasing the Namenda to therapeutic dosing once the above data is accomplished. At some point I am going to place her on medication for suppression of the hallucinations. I am going to report her to the DMV as well. I will see her back in 3 months but expect to have her on a different medical regimen by that time., as stated above. Helena Zhong MD In further consideration I am concerned about increasing the hallucinations with increased dose of namenda; I am going to prescribe exelon patch documented in this encounter Nursing Notes * Keyla Rosenberg MED ASSIST - 01/13/2024 1:16 PM EDT Chief Complaint Patient presents with NEW PATIENT Alzheimer's Disease documented in this encounter Miscellaneous Notes * Addendum Note - Helena Zhong MD - 02/11/2024 2:43 PM EDTAddended by: HELENA ZHONG on: 02/11/2024 02:43 PM Modules accepted: Orders documented in this encounter Plan of Treatment Upcoming Encounters Date Type Department Care Team (Late st Contact Info) Description 02/18/2024 3:20 PM EDT Office Visit Family Practice [facility] [address] [place] [address] Alejo Coburn MD [address] [place] [address] 02/24/2024 11:30 AM EDT Imaging Radiology [facility] 1st [facility] [address] [place] [address] 03/30/2024 1:40 PM EDT Office Visit Neurology [facility] [address] [place] [address] Helena Zhong MD [address] [place] [address] Scheduled Orders Name Type Priority Associated Diagnoses Orde r Schedule VITAMIN B12 Lab Routine Vitamin B12 deficiency Ordered: 01/13/2024 TSH Lab Routine Vitamin B12 deficiency Ordered: 01/13/2024 ANTINUCLEAR ANTIBODY (GILSON) EIA SCREEN WITH REFLEX AB QUANT Lab Routine Vitamin B12 deficiency Ordered: 01/13/2024 LYME DISEASE ANTIBODY SCREEN WITH REFLEX TO CONFIRMATION Lab Routine Vitamin B12 deficiency Ordered: 01/13/2024 ERYTHROCYTE SEDIMENTATION RATE (ESR) Lab Routine Vitamin B12 deficiency Ordered: 01/13/2024 EEG ROUTINE Procedures Routine 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) Ordered: 01/13/2024 COMPREHENSIVE METABOLIC PANEL Lab Routine 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) Ordered: 01/13/2024 Health Maintenance Due Date Last Done Comments Albumin/Creatinine Ratio 1963 Hepatitis C Screening 1963 Zoster Vaccines (2 of 3) 07/12/2011 05/17/2011 Mammogram 05/31/2016 05/31/2015, 1111/2009, 08/04/2009, Additional history exists Depression Screening 08/26/2020 08/26/2019 *BISPHONATE OR OTHER ACCEPTABLE MEDICATION NEEDED FOR OSTEOPOROSIS (REFER TO SMARTSET #1146) 01/11/2022 DXA Scan 05/23/2022 05/23/2020, 05/20, 05/02/2014, Additional history exists COVID-19 Vaccine ( season) 2023 01/16/2021 GFR 04/30/2024 04/30/2023, 12/19, 06/14/2016, Additional history exists DTaP,Tdap,and Td Vaccines (3 - Td or Tdap) 03/10/2029 03/10/2019, 04/07/2008 VITAMIN D LEVEL ONCE IN A LIFETIME-USE SMARTSET# [id number] Completed 05/16/2014, 05/01/2010 Pneumococcal Vaccine: 65+ Years [...] Not on filedocumented as of this encounter Results * MRI BRAIN W WO CONTRAST (02/05/2024 3:33 PM EDT) Anatomical Region Laterality Modality Neuro, Head Magnetic Resonan ce 02/09/2024 11:5 4 AM EDT Impressions 02/09/2024 11:51 AM EDT IMPRESSION 1. No acute intracranial pathology, space-occupying [...] helpful to better define the bony anatomy. Narrative 02/09/2024 11:51 AM EDT EXAM MRI BRAIN WITH/WITHOUT CONTRAST,02/05/2024 HISTORY 78-year-old female with dementia COMPARISON None TECHNIQUE Multiplanar, multisequence magnetic resonance images of the brain are acquired before and after administration of IV contrast using the memory/cognition protocol. FINDINGS There is global cerebral volume loss with proportionate ventricular and sulcal prominence. Multifocal, patchy T2 FLAIR hyperintensity scattered in the bilateral periventricular/subcortical cerebral white matter and central jones is most compatible with chronic microvascular ischemic disease in this age group. No territorial infarcts are demonstrated. A well-circumscribed, CSF signal intensity extra-axial fluid collection compatible with an arachnoid cyst is noted in the right cerebellopontine angle cistern, measuring roughly 3.0 cm x 2.1 cm x 2.1 cm (TRV by AP by CC). No space-occupying mass, brain edema, hydrocephalus, or midline shift is demonstrated. The basilar cisterns are patent. Diffusion-weighted sequence shows no restricted diffusion suspicious for acute ischemic infarction. No abnormal susceptibility artifact suspicious for hemorrhage is noted on the susceptibility weighted images. Post-contrast sequences reveal no abnormal enhancement. The pituitary gland, corpus callosum, pineal region, and other midline structures are normal in appearance. Cerebellum and craniovertebral junction are within normal limits. Expected intracranial vascular flow voids are grossly patent. [place] ocular lenses have been surgically replaced. A well-circumscribed, T2 hyperintense, enhancing intraosseous structure is noted along the anterior arch of C1, left of midline. Procedure Note Parish Up MD - 02/09/2024 EXAM MRI BRAIN WITH/WITHOUT CONTRAST,02/05/2024 HISTORY 78-year-old female with dementia COMPARISON None TECHNIQUE Multiplanar, multisequence magnetic resonance images of the brain areacquired before and after administration of IV contrast using thememory/cognition protocol. FINDINGS There is global cerebral volume loss with proportionate ventricular andsulcal prominence. Multifocal, patchy T2 FLAIR hyperintensity scatteredin the bilateral periventricular/subcortical cerebral white matter andcentral jones is most compatible with chronic microvascular ischemicdisease in this age group. No territorial infarcts are demonstrated. A well-circumscribed, CSF signal intensity extra-axial fluid collectioncompatible with an arachnoid cyst is noted in the right cerebellopontineangle cistern, measuring roughly 3.0 cm x 2.1 cm x 2.1 cm (TRV by AP byCC). No space-occupying mass, brain edema, hydrocephalus, or midline shift isdemonstrated. The basilar cisterns are patent. Diffusion-weighted sequence shows no restricted diffusion suspicious foracute ischemic infarction. No abnormal susceptibility artifact suspiciousfor hemorrhage is noted on the susceptibility weighted images.Post-contrast sequences reveal no abnormal enhancement. The pituitary gland, corpus callosum, pineal region, and other midlinestructures are normal in appearance. Cerebellum and craniovertebraljunction are within normal limits. Expected intracranial vascular flowvoids are grossly patent. [place] ocular lenses have been surgicallyreplaced. A well-circumscribed, T2 hyperintense, enhancing intraosseous structure isnoted along the anterior arch of C1, left of midline. IMPRESSION IMPRESSION 1. No acute intracranial pathology, space-occupying mass, or abnormalenhancement. 2. Global cerebral volume loss with chronic microvascular ischemic changesin the cerebral white matter and central jones. 3. Right cerebellopontine angle cistern arachnoid cyst. 4. Indeterminate, enhancing intraosseous structure within the anteriorarch of C1. Differential considerations would include an intraosseoushemangioma or benign fibro-osseous lesion. Other etiologies, to includemetastatic disease, cannot be excluded. Recommend dedicated MRI of thecervical spine for further characterization. CT cervical spine may alsobe helpful to better define the bony anatomy. 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
--- OUTSIDE RECORDS SUMMARY | 2024-05-21 22:19 | External Medical Summary | Summary of Care ---
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) Procedures MRI BRAIN W WO CONTRAST Bonnie Siddiqui MD 200 [facility] [place] [address] Referral ID Status Reason Start Date Expiration Date V isits Requested Visits Authorized [id number] Pending Review 01/13/2024 999 999 Reason for Visit * Reason Comments NEW PATIENT Alzheimer's Disease * Evaluate & Treat - Unlimited Visits (Within 30 days (routine)) - Authorized Specialty Diagnoses / Procedures Referred By Levar carlton Referred To Contact Neurology Diagnoses Mild early onset Alzheimer's dementia without behavioral disturbance, psychotic disturbance, mood disturbance, or anxiety (HCC) Romulo Abdul CRNP [address] [place] [address] Referral ID Status Reason Start Date Expiration Date Visits Requested Visits Authorized [id number] Authorized Specialty Services Required 01/06/2024 999 [id number] Encounter Details Date Type Department Care Team (Late st Contact Info) Description 01/13/2024 1:40 PM EDT Office Visit Neurology Tommy [facility] [place] 200 [facility] [place] [address] Bonnie Siddiqui MD [address] [place] [address] Mild early onset Alzheimer's dementia with other [...] the morning. 90 Tablet 3 11/12/2023 Active Sulfamethoxazole-T rimethoprim 800-160 MG Oral Tablet (Bactrim DS)Indications:Alt ered mental status, unspecified altered mental status type Take 1 Tablet by mouth in the morning and 1 Tablet before bedtime. Until gone. 6 Tablet 0 01/06/2024 01/13/2024 Discontinued (Medication List Clean Up) Hospital, Clinic, or Other Facility Administered Medication Ordered Dose Route Frequency Start Date End Date Status vitamin b-12 (Cyanocobalamin) inj 1,000 mcgIndications:B12 deficiency 1000 mcg IM [id number] 06/03/2023 05/03/2024 Active vitamin b-12 (Cyanocobalamin) inj 1,000 mcgIndications:Vitamin B12 deficiency 1000 mcg IM [id number] 11/12/2023 10/13/2024 Active documented as of this [...] program 02/15/2019 05/22/2020 Overview: DO NOT DELETE [facility] TODD Study: Project # [id number], Retail Greeter: Roscoe Baldwin, PhD. SUMMARY: Goal: Establish test [...] contact study staff at ; after hours Retail Greeter via the [facility] hospital keyboard operator . Please contact study team before resolving/deleting from patients problem list. Study phone number: [phone]. Diagnosis changed due to Research Module. Go to Snapshot for study details. Encounter for examination fo r normal comparison and control in clinical research program 02/15/2019 06/20/2022 Overview: DO NOT DELETE - [facility] DETECT Study: Project # [id number], Retail Greeter: Jesus Tolbert, MS, MPH. SUMMARY: Goal: Establish [...] contact study staff at ; after hours Retail Greeter via the [facility] hospital keyboard operator . - Please contact study team before resolving/deleting from patients problem list. Study phone number: [phone]. Diagnosis changed due to Research Module. 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 Bonnie Siddiqui MD documented in this encounter Nursing Notes * Keyla Rosenberg MED ASSIST - 01/13/2024 1:16 PM EDT Chief Complaint Patient presents with NEW PATIENT Alzheimer's Disease documented in this encounter Plan of Treatment Upcoming Encounters Date Type Department Care Team (Late st Contact Info) Description 02/04/2024 12:30 PM EDT NeuroDiagnostic Study [facility] [place] [address] [place] [address] Sp, Neurophys Tech [address] [facility] [place] [address] 02/05/2024 2:45 PM EDT Imaging Radiology [facility] 1st [facility] 132 [facility] [place] [address] 02/11/2024 4:00 PM EDT Office Visit Family Practice [facility] [address] [place] [address] Alejo Coburn MD [address] [place] [address] 03/30/2024 1:40 PM EDT Office Visit Neurology [facility] 200 [facility] [place] [address] Bonnie Siddiqui MD 200 [facility] [place] [address] Scheduled Orders Name Type Priority Associated Diagnoses Orde r Schedule MRI BRAIN W WO CONTRAST Medical Imaging Routine 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) Expected: 01/13/2024, Expires: 02/12/2025 VITAMIN B12 Lab Routine Vitamin B12 deficiency [...] Additional history exists COVID-19 Vaccine (2 - 2023-24 season) 2023 01/16/2021 GFR 04/30/2024 04/30/2023, 12/19, 06/14/2016, Additional history exists DTaP,Tdap,and Td Vaccines (3 - Td or Tdap) 03/10/2029 03/10/2019, 04/07/2008 VITAMIN D LEVEL ONCE IN A LIFETIME-USE SMARTSET# [id number] Completed 05/16/2014, 05/01/2010 Pneumococcal Vaccine: 65+ Years [...] Primary Vitamin B12 deficiency Other B-complex deficiencies documented in this encounter Care Teams Raw Silk Grader Relationship Specialty Start Date End Date Alejo Coburn MD [address] [place] [address] PCP - General Family Medicine 08/01/17 documented as of this encounter"
--- OUTSIDE RECORDS SUMMARY | 2024-05-21 22:19 | External Medical Summary | Summary of Care ---
Author Name Unknown Organization [facility] Address [address] [place] [address] Phone [phone] Care Team Providers Care Water Main Pipe Layer Name Role Phone Alejo Coburn MD Primary Care Provider [phone] Reason for Visit * Reason Onset Date Comments Referral 01/06/2024 Encounter Details Date Type Department Care Team (Late st Contact Info) Description 01/06/2024 Telephone Family Practice [facility] [address] [place] [address] Alejo Coburn MD [address] [place] [address] Referral Allergies Active Allergy Reactions Criticality Noted [...] inj 1,000 mcgIndications:B12 deficiency 1000 mcg IM [id number] 06/03/2023 05/03/2024 Active vitamin b-12 (Cyanocobalamin) inj 1,000 mcgIndications:Vitamin B12 deficiency 1000 mcg IM [id number] 11/12/2023 10/13/2024 Active documented as of this [...] 02/15/2019 05/22/2020 Overview: DO NOT DELETE [facility] [place] DETECT Study: Project # [id number], Countersinker: Roscoe Baldwin, PhD. SUMMARY: Goal: Establish test [...] contact study staff at ; after hours Countersinker via the [facility] lasting machine operator hand method . Please contact study team before resolving/deleting from patients problem list. Study phone number: [phone]. Diagnosis changed due to Research Module. Go to Snapshot for study details. Encounter for examination fo r normal comparison and control in clinical research program 02/15/2019 06/20/2022 Overview: DO NOT DELETE - [facility] Study: Project # [id number], Countersinker: Jesus Tolbert, MS, MPH. SUMMARY: Goal: Establish [...] contact study staff at ; after hours Countersinker via the [facility] hospital lasting machine operator hand method . - Please contact study team before resolving/deleting from patients problem list. Study phone number: [phone]. Diagnosis changed due to Research Module. Go [...] Scheduled Please call Suzette pt's friend at [phone]. She wanted to report an incident that happened last night with the pt * Telephone Encounter - Sherrie Lozoya OSA - 01/07/2024 8:05 AM EDT LM for pt to call back. They can schedule at any [facility] location and also be put on [...] 01/13/2024 1:40 PM EDT Office Visit Neurology [facility] [address] [facility] [place] [address] Bonnie Siddiqui MD [address] [facility] [place] [address] 02/11/2024 4:00 PM EDT Office Visit Family Practice [facility] [address] [place] [address] Alejo Coburn MD [address] [place] [address] Health Maintenance Due Date Last Done Comments [...] D LEVEL ONCE IN A LIFETIME-USE SMARTSET# [id number] Completed 05/16/2014, 05/01/2010 Pneumococcal Vaccine: 65+ Years [...] filedocumented as of this encounter Care Teams Water Main Pipe Layer Relationship Specialty Start Date End Date Alejo Coburn MD [address] [place] [address] PCP - General Family Medicine 08/01/17 documented as of this encounter
--- OUTSIDE RECORDS SUMMARY | 2024-05-21 22:19 | External Medical Summary | Summary of Care ---
Author Name Unknown Organization [facility] Address [address] [place] [address] Phone [phone] Care Team Providers Care Monumental Stonemason Name Role Phone Alejo Coburn MD Primary Care Provider [phone] Reason for Referral * Precert (Within 10 days (routine)) - Pending Review Specialty Diagnoses / Procedures Referred By Contac t Referred To Contact Radiology Diagnoses Abnormal CT of brain Procedures CT C SPINE W CONTRAST Bonnie Siddiqui MD [address] [facility] [place] [address] Referral ID Status Reason Start Date Expiration Date V isits Requested Visits Authorized [id number] Pending Review 02/24/2024 999 999 Reason for Visit * Reason Onset Date Comments abnormal imaging study 02/10/2024 Encounter Details Date Type Department Care Team (Late st Contact Info) Description 02/10/2024 Telephone Neurology [facility] [place] [address] [facility] [place] [address] Bonnie Siddiqui MD [address] [facility] [place] [address] abnormal imaging study Allergies Active Allergy Reactions [...] inj 1,000 mcgIndications:B12 deficiency 1000 mcg IM [id number] 06/03/2023 05/03/2024 Active vitamin b-12 (Cyanocobalamin) inj 1,000 mcgIndications:Vitamin B12 deficiency 1000 mcg IM [id number] 11/12/2023 10/13/2024 Active documented as of this [...] program 02/15/2019 05/22/2020 Overview: DO NOT DELETE [facility] DETECT Study: Project # [id number], Hris Coordinator: Roscoe Baldwin, PhD. SUMMARY: Goal: Establish test [...] contact study staff at ; after hours Hris Coordinator via the [facility] press operator . Please contact study team before resolving/deleting from patients problem list. Study phone number: [phone]. Diagnosis changed due to Research Module. Go to Snapshot for study details. Encounter for examination fo r normal comparison and control in clinical research program 02/15/2019 06/20/2022 Overview: DO NOT DELETE - [facility] DETECT Study: Project # [id number], Hris Coordinator: Jesus Tolbert, MS, MPH. SUMMARY: Goal: Establish [...] contact study staff at ; after hours Hris Coordinator via the [facility] press operator . - Please contact study team before resolving/deleting from patients problem list. Study phone number: [phone]. Diagnosis changed due to Research Module. Go [...] 3:20 PM EDT Office Visit Family Practice [facility] [address] [place] [address] Alejo Coburn MD [address] [place] [address] 02/24/2024 11:30 AM EDT Imaging Radiology [facility] [address] [place] [address] 03/30/2024 1:40 PM EDT Office [facility] [address] [facility] [place] [address] Bonnie Siddiqui MD [address] [facility] [place] [address] Scheduled Orders Name Type Priority Associated Diagnoses [...] D LEVEL ONCE IN A LIFETIME-USE SMARTSET# [id number] Completed 05/16/2014, 05/01/2010 Pneumococcal Vaccine: 65+ Years [...] head documented in this encounter Care Teams Monumental Stonemason Relationship Specialty Start Date End Date Alejo Coburn MD [address] [facility] [place] [address] PCP - General Family Medicine 08/01/17 documented as of this encounter
--- OUTSIDE RECORDS SUMMARY | 2024-05-21 22:19 | External Medical Summary | Summary of Care ---
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 [facility] Role Tape Transferrer Tape Transferrer Referral Reason Housing Resources Comments Is patient being transitioned from [facility] to Complex Case Management? 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 [facility] Is this referral being placed for insurance purposes ONLY No, patient needs appointment CAD NEUROLOGY REFERRAL QUESTIONS Memory/Cognition Reason for Visit * Reason Comments Altered Mental Status Encounter Details Date Type Department Care Team (Late st Contact Info) Description 01/06/2024 5:20 PM EDT Office Visit [facility] [address] [place] [address] Romulo Abdul CRNP [address] [place] [address] Moderate Alzheimer's dementia with other behavioral disturbance, unspecified timing of dementia onset (HCC)*; Altered mental status, unspecified altered mental status type Allergies Active Allergy Reactions Criticality Noted Date Comments Amoxicillin 07/23/2016 Aspirin 10/31/1999 GI upset Lactose Intolerance 10/31/1999 Shellfish 06/24/2003 Hives documented as of this encounter (statuses as of 01/06/2024) Medications Medication Sig Dispensed Refills Start Date End Date Status Memantine HCl 5 MG Oral Tablet (Namenda) Take 1 Tablet by mouth in the morning and 1 Tablet before bedtime. 180 Tablet 3 08/12/2023 Active Lisinopril 10 MG Oral Tablet (Prinivil) Take 1 Tablet by mouth in the morning. 90 Tablet 3 11/12/2023 Active Sulfamethoxazole- Trimethoprim 800-160 MG Oral Tablet (Bactrim DS)Indications:Al tered mental status, unspecified altered mental status type Take 1 Tablet by mouth in the morning and 1 Tablet before bedtime. Until gone. 6 Tablet 0 01/06/2024 Active Sulfamethoxazole- Trimethoprim 800-160 MG Oral Tablet (Bactrim DS)Indications:Al tered mental status, unspecified altered mental status type Take 1 Tablet by mouth in the morning and 1 Tablet before bedtime. Do all this for 3 days. Until gone. 6 Tablet 0 01/06/2024 01/06/2024 Discontinued Hospital, Clinic, or Other Facility Administered Medication Ordered Dose Route Frequency Start Date End Date Status vitamin b-12 (Cyanocobalamin) inj 1,000 mcgIndications:B12 deficiency 1000 mcg IM [id number] 06/03/2023 05/03/2024 Active vitamin b-12 (Cyanocobalamin) inj 1,000 mcgIndications:Vitamin B12 deficiency 1000 mcg IM [id number] 11/12/2023 10/13/2024 Active documented as of this encounter (statuses as of 01/06/2024) Active Problems Problem Noted Date Diagnosed Date Vitamin B12 deficiency 08/12/2023 Mild dementia 05/31/2023 Overweight (BMI 25.0-29.9) 05/31/2023 HTN, goal below 130/80 04/30/2023 Senile osteoporosis 08/01/2017 Dyslipidemia 10/04/2009 Overview: Per Lipid Taxonomy. Subclinical hypothyroidism 07/03/1998 documented as of this encounter (statuses as of 01/06/2024) Resolved Problems Problem Noted Date Diagnosed Date Resolved Date Encounter for examination fo r normal comparison and control in clinical research program 02/15/2019 05/22/2020 Overview: DO NOT DELETE [facility] DETECT Study: Project # [id number], Truck Cleaner: Roscoe Baldwin, PhD. SUMMARY: Goal: Establish [...] contact study staff at ; after hours Truck Cleaner via the [facility] perforating machine operator . Please contact study team before resolving/deleting from patients problem list. Study phone number: [phone]. Diagnosis changed due to Research Module. Go to Snapshot for study details. Encounter for examination fo r normal comparison and control in clinical research program 02/15/2019 06/20/2022 Overview: DO NOT DELETE - [facility] DETECT Study: Project # [id number], Truck Cleaner: Jesus Tolbert, MS, MPH. SUMMARY: Goal: [...] contact study staff at ; after hours Truck Cleaner via the [facility] hospital perforating machine operator . - Please contact study team before resolving/deleting from patients problem list. Study phone number: [phone]. Diagnosis changed due to Research Module. Go [...] - Brother 10/31/1999 09/04/2017 Mixed dyslipidemia 07/03/1998 12/16/200 9 Overview: Per Lipid Taxonomy. MENOPAUSE - 07/03/1998 09/04/2017 Calculus of kidney 10/20/1992 7 documented as of this encounter (statuses as of 01/06/2024) Immunizations Name Administration Dates Next Due COVID-19 [...] Sign Reading Time Taken Comments Blood Pressure 144/78 01/06/2024 5:08 PM EDT Pulse 64 01/06/2024 5:08 PM EDT Temperature 37.7 C (99.9 F) 01/06/2024 5:08 PM ED T Respiratory Rate 18 01/06/2024 5:08 PM EDT Oxygen Saturation - - Inhaled Oxygen Concentration - - Weight 71.7 kg (158 lb) 01/06/2024 5:08 PM EDT Height 157.5 cm (5' 2") 01/06/2024 5:08 PM EDT Body Mass Index 28.9 01/06/2024 5:08 PM EDT documented in this encounter Progress Notes * Romulo Abdul CRNP - 01/06/2024 5:20 PM EDT Images from the original note were not included. Follow up Family Medicine Visit History of Present Illness Cleopatra Edwards is a 78 year old female with PMH listed below presenting with altered mental status. Hallucinations, agitation, anxiety, and paranoia. Accompanied by friend Suzette, and son Kadeem. It's been ongoing for years, worsening recently. When the issue started, there was an imaginary dog, altered perception, hallucination. She called [facility], and unit technician to find this dog. Given Aricept by pcp but couldn't tolerate. Taking Namenda. She still drives and leaves her house to find her house every night per son. Per chart, she has hx of dementia but never formally evaluated by neurology. Her memory seems to fluctuate. They wonder what types of dementia she has and treatment plan. Social History Socioeconomic History Marital status: Spouse name: Not on file Number of children: 1 Years of education: Not on file Highest education level: Not on file Occupational History Not on file Tobacco Use Smoking status: Never Smokeless tobacco: Never Substance and Sexual Activity Alcohol use: Yes Comment: rare Drug use: No Sexual activity: Not Currently Other Topics Concern Not on file Social [...] on file Housing Stability: Not on file PMH: Past Medical History: Diagnosis Date Cystitis 05/31/2023 [...] UNDER 12 VAGINAL DELIVERY ONLY x 1 Outpatient Medications Marked as Taking for the 01/06/24 encounter (Office Visit) with Romulo Abdul CRNP Medication Sig Lisinopril 10 MG Oral Tablet (Prinivil) Take 1 Tablet by mouth in the morning. Memantine HCl 5 MG Oral Tablet (Namenda) Take 1 Tablet by mouth in the morning and 1 Tablet before bedtime. Current Facility-Administered Medications for the 01/06/24 encounter (Office Visit) with Romulo Abdul CRNP Medication vitamin b-12 (Cyanocobalamin) inj 1,000 mcg vitamin b-12 (Cyanocobalamin) inj 1,000 mcg Review of patient's allergies indicates: Allergen Reactions Amoxicillin Aspirin GI upset Lactose Intolerance Shellfish Hives Most Recent Immunizations Administered Date(s) Administered COVID-19 mRNA, LNP-s, No Preserve, 2-Dose Series (Zerto) 01/16/2021 Pneumococcal Conjugate Vacc, 13 Valent (Prevnar) 02/27/2016 Pneumococcal Polysaccharide PPV23 (Pneumovax) 11/09/2010 Seasonal Influenza, Quadrivalent Hd (Fluzone Hd) 08/12/2023 Seasonal Influenza, Split, IIV3, With Preserve, Inj 08/18/2013 Seasonal Influenza, Trivalent, Adjuvanted, 65+ yrs 08/26/2019 TDAP (age 10 and older)(Boostrix) 03/10/2019 TDAP (age 11 and older)(Adacel) 04/07/2008 Varicella Zoster Vaccine (Adult) 05/17/2011 Review of Systems: Physical Exam BP 144/78 | Pulse 64 | Temp 37.7 C (99.9 F) (Tympanic) | Resp 18 | Ht 1.575 m (5' 2") | Wt 71.7kg (158 lb) | BMI 28.90 kg/m | BSA 1.77 m Physical Exam Constitutional: Appearance: Normal appearance. HENT: Head: Normocephalic. Cardiovascular: Rate and Rhythm: Normal rate and regular rhythm. Pulmonary: Effort: Pulmonary effort is normal. Breath sounds: Normal breath sounds. Musculoskeletal: Cervical back: Neck supple. Skin: General: Skin is warm. Neurological: Mental Status: She is alert. She is confused. Psychiatric: Mood and Affect: Mood normal. Assessment and Plan 1. 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 Altered mental status, unspecified altered mental status type Will treat with bactrim while waiting on the culture - CULTURE, URINE, QUANTITATIVE - Sulfamethoxazole-Trimethoprim 800-160 MG Oral Tablet (Bactrim DS); Take 1 Tablet by mouth in the morning and 1 Tablet before bedtime. Until gone. Dispense: 6 Tablet; Refill: 0 Wrap-Up I have advised the patient to call our office with any worsening or new symptoms. I spent a total of 30-39 minutes (exact time 35 mins) on the date of service in preparation, delivery, and documentation of the care provided to Cleopatra Edwards excluding any time spent in the performance of separately billed services. Romulo Abdul, MSN, MITCH [facility] documented in this encounter Nursing Notes * Maddy Ireland LPN - 01/06/2024 5:07 PM EDT The patient has been properly identified by confirmation of name and date of . Chief Complaint Patient presents with Altered Mental Status documented in this encounter Plan of Treatment Upcoming Encounters Date Type Department Care Team (Late st Contact Info) Description 02/11/2024 4:00 PM EDT Office Visit Family [facility] [address] [facility] [place] [address] Alejo Coburn MD [address] [facility] [place] [id number] Pending Results Name Type Priority Associated Diagnoses Date /Time CULTURE, URINE, QUANTITATIVE Lab Routine Altered mental status, unspecified altered mental status type 01/06/2024 6:48 PM EDT Scheduled Referrals Name Type Priority Associated Diagnoses Orde r Schedule NEUROLOGY REFERRAL OP Referral Within 30 days (routine) Moderate Alzheimer's dementia with other behavioral disturbance, unspecified timing of dementia onset (HCC) Ordered: 01/06/2024 POPULATION HEALTH REFERRAL OP Referral Within 10 days (routine) Moderate Alzheimer's dementia with other behavioral disturbance, unspecified timing of dementia onset (HCC) Ordered: 01/06/2024 Health Maintenance Due Date Last Done Comments [...] D LEVEL ONCE IN A LIFETIME-USE SMARTSET# [id number] Completed 05/16/2014, 05/01/2010 Pneumococcal Vaccine: 65+ Years [...] Not on filedocumented as of this encounter Procedures Procedure Name Priority Date/Time Associated Diagnosis Comments URINALYSIS, POINT OF CARE [facility] 01/06/2024 6:20 PM EDT documented in this encounter Results * (ABNORMAL) URINALYSIS, POINT OF CARE (01/06/2024 6:20 PM EDT) Color, Urine Dark Yellow(A) Light Yellow, Yellow 01/06/2024 6:22 PM EDT [facility] Clarity, Urine Clear Clear 01/06/2024 6:22 PM EDT [facility] Glucose, Urine Negative Negative mg/dL 01/06/2024 6:22 PM EDT [facility] Bilirubin, Urine Negative Negative 01/06/2024 6:22 PM EDT [facility] Ketone, Urine Negative Negative mg/dL 01/06/2024 6:22 PM EDT [facility] Specific [place], Urine >=1.030 1.003 - 1.030 01/06/2024 6:22 PM EDT [facility] Blood, Urine Small(A) Negative 01/06/2024 6:22 PM EDT [facility] pH, Urine 5.5 5.0, 5.5, 6.0, 6.5, 7.0, 7.5 units 01/06/2024 6:22 PM EDT [facility] Protein, Urine Negative Negative mg/dL 01/06/2024 6:22 PM EDT [facility] Urobilinogen, Urine 1.0 0.2, 1.0 mg/dL 01/06/2024 6:22 PM EDT [facility] Nitrite, Urine Negative Negative 01/06/2024 6:22 PM EDT [facility] Esterase, Urine Small(A) Negative 01/06/2024 6:22 PM EDT [facility] Urine 01/06/2024 6:20 PM EDT 01/06/2024 6:22 PM EDT [facility] POINT OF CARE TE ST DOCKED DEVICE UNSOLICITED RESULTS [facility] [address] [place] [address] documented in this encounter Visit Diagnoses Diagnosis Moderate Alzheimer's dementia with other behavioral disturbance, unspecified timing of dementia onset (HCC)- Primary Altered mental status, unspecified altered mental status type documented in this encounter Care Teams Pin Ball Machine Mechanic Relationship Specialty Start Date End Date Alejo Coburn MD [address] [place] [address] PCP - General Family Medicine 08/01/17 documented as of this encounter
[2024-05-22 06:01] LABS: Hematocrit (blood only) 41.8 % (37.0-47.0); Mean Corpuscular Hemoglobin 29.4 pg (25.0-34.0); Mean Corpuscular Hgb Conc 33.5 g/dL (32.0-36.0); Mean Corpuscular Volume 87.6 fL (80.0-100.0); Mean Platelet Volume 10.1 fL (9.4-12.4); Platelet Count 215 K/uL (130-400); RDW Coefficient of Variation 13.5 % (11.5-14.5); RDW Standard Deviation 43.6 fL (36.4-46.3); Red Blood Count 4.77 M/uL (4.20-5.40); White Blood Count 5.74 K/ul (4.8-10.8)
[2024-05-22 06:17] LABS: BUN Creatinine Ratio 12.7 (10-20); Calcium 8.8 mg/dl (8.6-10.3); Est GFR (African American) 82.5 ml/min; Est GFR (Non-African American) 71.2 ml/min; Phosphorus 3.7 mg/dl (2.5-4.9); Potassium 4.2 mmol/L (3.5-5.1)
--- NOTE | 2024-05-22 06:45 | Electrocardiogram Report ---
Test Reason : Blood Pressure : / mmHG Vent. Rate : 064 BPM Atrial Rate : 064 BPM P-R Int : 154 ms QRS Dur : 138 ms QT Int : 452 ms P-R-T Axes : 054 -72 040 degrees QTc Int : 466 ms Normal sinus rhythm Right bundle branch block Left anterior fascicular block Bifascicular block Minimal voltage criteria for LVH, may be normal variant Abnormal ECG When compared with ECG of 24-APR-2023 23:36, Right bundle branch block is now Present Confirmed by Willy De Santiago ([id number]) on 05/22/2024 6:45:12 AM Referred By: REFERRED SELF Confirmed By:Richie De Santiago
[2024-05-22] MEDS: lisinopril 10 MG TAB PO SCH (08:53)
[2024-05-22] MEDS: ENOXAPARIN INJ 40 MG/0.4 ML SYR SQ SCH (09:27)
--- NOTE | 2024-05-22 09:59 | Hospitalist Progress Note ---
Date of Service May 22, 2024 Assessment & Plan (1) UTI (urinary tract infection): (2) Stroke-like symptoms: (3) Alzheimer dementia: (4) Essential hypertension: (5) Acute CVA (cerebrovascular accident): Plan 78-year-old female with history of Alzheimer's dementia on Exelon patch, hypertension was brought to the ED by family for concern for slurred speech, slight facial droop Acute UTI Patient presents with slurred speech and slight facial droop Urinalysis suggest infection Urine culture growing gram-negative bacilli Continue on ceftriaxone; will follow-up on final culture Acute CVA Possibly Embolic had slurred speech, may be slight facial droop on admission. Neuro exam unremarkable. CT head unremarkable. Brain MRI shows punctate restricted diffusion in the right periventricular white matter and basal ganglia compatible with an embolic stroke. Obtain echocardiogram, CTA head and neck Started on aspirin, Lipitor Echocardiogram Neurology evaluation PT OT evaluation INSURANCE LOSS CONTROL SURVEYOR evaluation Telemonitoring Alzheimer's dementia- on exelon patch. Delirium precautions. HTN- continue lisinopril. DVT ppx- sc lovenox DNR/DNI Dispo-Hospitalized for acute CVA and UTI. Awaiting urine culture results, workup for stroke Please note the above document was generated using voice recognition software. It may contain grammatical, syntax or spelling errors. Any formal questions or concerns about the content, text or information contained within the body of this dictation should be directly addressed to the provider for clarification Admission and Anticipated Discharge Date Admission Date: May 21, 2024 Subjective Patient comfortable. She does not appear to be in any distress She is taking off radiography technician Vital signs stable. Review of Systems Review of Systems: All systems reviewed & are unremarkable except as noted in Subjective Physical Exam Physical Exam: General: Lying comfortably in bed, not in distress, on room air HEENT: EOMI, JIMENEZ, MMM Chest: Clear breath sounds bilaterally, no wheezes or crackles CVS: Regular rate and rhythm, normal heart sounds, no murmur Abdomen: Soft, non tender, not distended, normal bowel sounds Neuro: Awake, alert, oriented x2, conversing appropriately. No Pronator drift. strength 5/5 on all extremities. sensation grossly intact. Cranial nerves grossly intact Extremities: No cyanosis, clubbing or edema Psych: calm, cooperative, demented at baseline Results & Data Results & Data Vital Signs (Past 12 Hours) Vital Signs Temp Pulse Pulse Resp BP Pulse Ox O2 Del Method 05/22/24 08:00 36.5 C 60 18 148/76 H 96 Room Air 05/22/24 05:44 Room Air 05/22/24 05:42 52 L 16 135/66 94 Room Air 05/22/24 02:00 84 18 161/97 H 98 Room Air 05/21/24 22:25 54 L
--- NOTE | 2024-05-22 10:58 | Magnetic Resonance Report ---
MR brain wo con CLINICAL HISTORY: slurred speech TECHNIQUE: Multiplanar and multisequence MR images of the brain were obtained without intravenous con trast. Comparison: Comparison is made to CT head 05/21/2024 FINDINGS: No abnormal restricted diffusion is identified. Scattered right periventricular white matter and basa l ganglia punctate foci of restricted diffusion noted. Ex vacuo ventriculomegaly and sulcal enlargeme nt is noted compatible with diffuse volume loss. No mass is seen. There is no mass effect or midline shift. There is no evidence of acute intraparenchymal hemorrhage. No extra axial fluid collections ar e seen. The corpus callosum, pituitary gland, and cerebellar tonsils appear grossly unremarkable. Flow voids of the major intracranial arterial vessels are identified. The imaged portions of the para nasal sinuses, mastoid air cells, and orbits are unremarkable. IMPRESSION: Punctate restricted diffusion in the right periventricular white matter and basal ganglia compatible with an embolic stroke. ACT 112: Negative or not required by law. Electronically signed by: Ben López M.D. 05/22/2024 10:55 AM
--- NOTE | 2024-05-22 10:58 | Ultrasound Report ---
ULTRASOUND OF THE CAROTID ARTERIES CLINICAL HISTORY: stroke like symptoms TECHNIQUE: Real-time, grayscale, and color Doppler sonography of the bilateral carotid arteries is pe rformed. Images are reviewed in the transverse and longitudinal planes. COMPARISON: None available at the time of this dictation. FINDINGS: The carotid arteries are patent bilaterally and demonstrate antegrade flow. There is moderate atheros clerotic plaque on the right and moderate atherosclerotic plaque on the left. Normal doppler arterial waveforms are seen throughout. Velocity measurements are listed below. Common carotid peak systolic velocity (cm/sec): RIGHT: 53 LEFT: 59 ICA peak systolic velocity (cm/sec): RIGHT: 91 LEFT: 75 ICA/CC peak systolic ratio: RIGHT: 1.7 LEFT: 1.3 Antegrade flow was shown in the vertebral arteries. The external carotid arteries are patent. IMPRESSION: 1. There is no sonographic evidence of hemodynamically significant stenosis in the right or left car otid arterial system. 2. Antegrade flow is shown in the vertebral arteries. Society of Radiologists in Ultrasound consensus guidelines: Normal: ICA PSV is <125 cm/sec and no plaque or intimal thickening is visible sonographically additional criteria include ICA/CCA PSV ratio <2.0 and ICA EDV <40 cm/sec <50% ICA stenosis: ICA PSV is <125 cm/sec and plaque or intimal thickening is visible sonographically additional criteria include ICA/CCA PSV ratio <2.0 and ICA EDV <40 cm/sec 50-69% ICA stenosis: ICA PSV is 125-230 cm/sec and plaque is visible sonographically additional criteria include ICA/CCA PSV ratio of 2.0-4.0 and ICA EDV of 40-100 cm/sec ?70% ICA stenosis but less than near occlusion: ICA PSV is >230 cm/sec and visible plaque and luminal narrowing are seen at morales-scale and color Dopp ler ultrasound (the higher the Doppler parameters lie above the threshold of 230 cm/sec, the greater the likelihood of severe disease) additional criteria include ICA/CCA PSV ratio >4 and ICA EDV >100 cm/sec ACT 112: Negative or not required by law. Electronically signed by: Ben López M.D. 05/22/2024 10:57 AM
[2024-05-22] MEDS ORDERED: PHARMACIST DISCHARGE MED REC CONSULT PRN (11:31)
[2024-05-22] MEDS: ROSUVASTATIN CALCIUM 20 MG TAB PO SCH (13:38)
[2024-05-22] MEDS: ASPIRIN 81 MG ECTAB PO SCH (13:39)
[2024-05-22] MEDS: OPTIRAY 320 125ml IV ONE (15:34)
--- NOTE | 2024-05-22 15:56 | CT Scan Report ---
CT angio neck with con, CT angio head w con CLINICAL HISTORY: rule out LVO TECHNIQUE: CT angiography of the head and neck was performed following intravenous administration of iodinated contrast. Coronal and sagittal MIPS were obtained from the axial data set and were submitte d for review. Automated dose lowering techniques and/or adjustment according to patient size were ut ilized for this examination. All measurements were calculated based on NASCET criteria. CT DOSE: 397.26 mGy.cm Comparison: Comparison is made to MRI brain 05/22/2024 FINDINGS: Lungs and soft tissues are unremarkable. CTA Neck: The aortic arch and the origins of the innominate, left subclavian, and left common caroti d artery are not imaged. There is no significant atherosclerotic plaque in the aortic arch or the taiwo gins of the innominate, left common carotid, and left subclavian arteries. There is mild calcified a therosclerotic plaque at the bifurcation of the bilateral common carotid arteries without hemodynamic ally significant flow stenosis. There is no dissection present. The left vertebral artery is dominant . There is narrowing of the V4 segment of the right vertebral artery which is likely nonhemodynamical ly significant. CTA Head: The anterior and posterior cerebral circulations are patent. Focal cutoff of the right MCA is seen near the origin with distal reconstitution. Nonhemodynamically significant stenosis of the b asilar artery is seen in multiple foci. IMPRESSION: 1. No occlusion, hemodynamically significant stenosis, or dissection in the major cervical arteries. 2. Focal cutoff of the origin of the right MCA with distal reconstitution in this patient with infar cts of the right periventricular white matter and basal ganglia. 3. Diffuse atherosclerotic disease is seen with no hemodynamically significant stenosis most promine ntly in the right vertebral artery and basilar artery. Assessment of stenosis of the internal carotid arteries is based on NASCET criteria. ACT 112: Negative or not required by law. Electronically signed by: Ben López M.D. 05/22/2024 3:54 PM
--- NOTE | 2024-05-22 16:33 | Neurology Consultation ---
Date of Consultation May 22, 2024 Assessment & Plan (1) Acute CVA (cerebrovascular accident): Recommend continued stroke work up to include the following: Echocardiogram as part of complete stroke workup Continue frequent neurological assessments Obtain stat CT brain without contrast for any acute neurological decline Continue to monitor/control blood pressure & blood glucose Continue to monitor telemetry closely Recommend ZioPatch at DC if no evidence of arrhythmia during inpatient monitoring Continue to monitor renal and hepatic function, keep euvolemic Metabolic workup should include hgbA1c, fasting lipids, homocysteine, TSH, D Dimer, RPR, urinalysis Recommend DAPT for at least 3 weeks Recommend high dose statin therapy indefinitely if tolerated Ok from neurology perspective for VTE prophylaxis PT/OT/SLT to eval and treat Telehealth Consultation Telehealth Information Telehealth Information: I performed this visit using a real-time telehealth connection between my location and the patients location ([facility]). After connecting through interactive tele-video, patient was identified by name and date of and/or wristband check.Patient (or authorized healthcare counter sales representative) was informed that this was a telemedicine visit and it was being conducted confidentially over secure lines. My office door was closed and no one else was present in the room with me.Patient (or authorized healthcare counter sales representative) provided consent to proceed with the visit, expressed an understanding of privacy and security of the telemedicine visit, and gave permission to have a hospital counter sales representative in the room in order to assist with the visit and to conduct portions of the visit, as needed. I informed the patient (or authorized healthcare counter sales representative) that I reviewed their record and presented the opportunity for them to ask any questions regarding the visit today. The patient agreed to participate. History of Present Illness Reason for Consultation: Stroke Requesting Physician: Dr. Canales Attending Physician: Jacob Canales MD History of Present Illness 78yo female with hx of dementia was brought to ER by family after they felt she was not acting like her self. She was reportedly slurring her speech and noted left facial asymmetry. Her last well know was outside therapeutic timeframe for IV thrombolytic or emergent endovascular intervention. She has undergone emergent stroke imaging including CT brain without contrast, personally reviewed, revealing no overt evidence of hemorrhage. CT angiographic studies of head and neck, also personally reviewed, reveals evidence of small thrombus right MCA vessel with reconstitution distally. MRI brain reveals areas of restricted diffusion within right MCA territory likely representing artery to artery stroke. There remains concern for proximal/embolic source of right MCA soft plaque thrombus. I have performed televideo consultation. She appears without distress. There is noted left facial asymmetry-left nasolabial fold blunting. She is able to stand up from her chair and ambulate in room. She does not speak, answer questions or follow commands. Allergies Allergy/AdvReac Type Severity Reaction Status Date / Time shellfish derived AdvReac Intermediate SORENESS Verified 05/21/24 18:01 AROUND URETHRA WITH RASH, BURINING WITH URINATION Home Medications Medication Instructions Recorded Confirmed Type lisinopril 10 mg tablet 10 mg PO DAILY 05/21/24 05/21/24 History rivastigmine 9.5 mg/24 hour 9.5 mg topical DAILY 05/21/24 05/21/24 History transdermal patch Patient History Medical History Hypothyroid Social History Smoking Status: Never smoker Hx Alcohol Use: No Hx Substance Use: No Preferred Language: Irish Communication Ability: Effective Technology Integration Specialist Required: No Feels Safe at Home: Yes Assistive Devices: None Physical Exam Neurological Examination: Mental Status: Awake CN testing: I: Unable to accurately assess II:Unable to accurately assess III/IV/: No evidence of gaze preference, hippus, nystagmus or roving eye movements V: Facial sensation is difficult to reliably assess VII: Left facial asymmetry VIII: Hearing is difficult to accurately assess IX/X: Palate is unable to be accurately visualized XI: Unable to accurately assess XII: Unable to accurately assess Motor exam: Strength appears grossly intact/symmetric in all extremities Sensory: Unable to accurately assess Coordination: Deferred Reflexes: Deferred Gait: Deferred Results & Data Vital Signs (Past 12 Hours) Vital Signs Temp Pulse Pulse Pulse Resp BP Pulse Ox 05/22/24 15:15 36.3 C L 54 L 16 162/76 H 96 05/22/24 14:24 52 L 05/22/24 12:43 36.4 C L 54 L 16 159/67 H 96 05/22/24 11:31 36.6 C 62 18 169/76 H 96 05/22/24 08:00 36.5 C 60 18 148/76 H 96 05/22/24 05:44 05/22/24 05:42 52 L 16 135/66 94 O2 Del Method 05/22/24 15:15 Room Air 05/22/24 14:24 05/22/24 12:43 Room Air 05/22/24 11:31 Room Air 05/22/24 08:00 Room Air 05/22/24 05:44 Room Air 05/22/24 05:42 Room Air Laboratory Results Abnormal lab results 05/21/24 05/21/24 05/21/24 Range/Units 16:28 16:36 18:10 POC Total CO2 23 L (24-31) mmol/L POC Anion Gap 15.0 L (16-25) mmol/L Magnesium 2.5 H (1.7-2.4) mg/dl Globulin 2.2 L (2.5-4.0) gm/dl Urine Appearance Turbid A (Clear) Urine Protein Trace H (Negative) Urine Ketones Trace H (Negative) Urine Blood 1+ H (Negative) Urine Nitrite Positive A (Negative) Ur Leukocyte Esterase 3+ H (Negative) Urine WBC (Auto) >50 H (0-5) /hpf Urine RBC (Auto) 6-10 H (0-2) /hpf U Hyaline Cast (Auto) 3-5 H (0-2) /lpf Urine Bacteria (Auto) 4+ H (None Seen) Calcium Oxalate Crystal Present A (None Prsent) Diagnostic Findings Head CT 05/21/24 16:[address] DOSE: 547.75 mGy.cm HISTORY: Slurred speech. Neuro deficit, acute, stroke suspected TECHNIQUE: Multiaxial CT images of the head were performed without the use of intravenous contrast. Automated exposure control was utilized for this study. A dose lowering technique was utilized adhering to the principles of ALARA. Comparison: Head CT 04/25/2023. Findings: The paranasal sinuses and mastoid air cells are clear. The calvarium and skull base are intact. There is no mass, hematoma, midline shift, acute infarct. White matter hypodensity is nonspecific but suggestive of microvascular ischemic change. The ventricles and sulci demonstrate mild age-related involutional changes. Stable prominence within the right extra-axial posterior fossa measuring 2.7 cm. This favors an arachnoid cyst. Impression: No significant change compared to the prior study. No acute intracranial ab normality. ACT 112: Negative or not required by law. Electronically signed by: Ron Chapin M.D. 05/21/2024 5:06 PM Carotid Doppler Study 05/21/24 19:03 ULTRASOUND OF THE CAROTID ARTERIES CLINICAL HISTORY: stroke like symptoms TECHNIQUE: Real-time, grayscale, and color Doppler sonography of the bilateral carotid arteries is performed. Images are reviewed in the transverse and longitudinal planes. COMPARISON: None available at the time of this dictation. FINDINGS: The carotid arteries are patent bilaterally and demonstrate antegrade flow. There is moderate atherosclerotic plaque on the right and moderate atherosclerotic plaque on the left. Normal doppler arterial waveforms are seen throughout. Velocity measurements are listed below. Common carotid peak systolic velocity (cm/sec): RIGHT: 53 LEFT: 59 ICA peak systolic velocity (cm/sec): RIGHT: 91 LEFT: 75 ICA/CC peak systolic ratio: RIGHT: 1.7 LEFT: 1.3 Antegrade flow was shown in the vertebral arteries. The external carotid arteries are patent. IMPRESSION: 1. There is no sonographic evidence of hemodynamically significant stenosis in the right or left carotid arterial system. 2. Antegrade flow is shown in the vertebral arteries. Society of Radiologists in Ultrasound consensus guidelines: Normal: ICA PSV is <125 cm/sec and no plaque or intimal thickening is visible sonographically additional criteria include ICA/CCA PSV ratio <2.0 and ICA EDV <40 cm/sec <50% ICA stenosis: ICA PSV is <125 cm/sec and plaque or intimal thickening is visible sonographically additional criteria include ICA/CCA PSV ratio <2.0 and ICA EDV <40 cm/sec 50-69% ICA stenosis: ICA PSV is 125-230 cm/sec and plaque is visible sonographically additional criteria include ICA/CCA PSV ratio of 2.0-4.0 and ICA EDV of 40-100 cm/sec ?70% ICA stenosis but less than near occlusion: ICA PSV is >230 cm/sec and visible plaque and luminal narrowing are seen at morales-scale and color Doppler ultrasound (the higher the Doppler parameters lie above the threshold of 230 cm/sec, the greater the likelihood of severe disease) additional criteria include ICA/CCA PSV ratio >4 and ICA EDV >100 cm/sec ACT 112: Negative or not required by law. Electronically signed by: Ben López M.D. 05/22/2024 10:57 AM Brain MRI 05/22/24 08:00 MR brain wo con CLINICAL HISTORY: slurred speech TECHNIQUE: Multiplanar and multisequence MR images of the brain were obtained without intravenous contrast. Comparison: Comparison is made to CT head 05/21/2024 FINDINGS: No abnormal restricted diffusion is identified. Scattered right periventricular white matter and basal ganglia punctate foci of restricted diffusion noted. Ex vacuo ventriculomegaly and sulcal enlargement is noted compatible with diffuse volume loss. No mass is seen. There is no mass effect or midline shift. There is no evidence of acute intraparenchymal hemorrhage. No extra axial fluid collections are seen. The corpus callosum, pituitary gland, and cerebellar tonsils appear grossly unremarkable. Flow voids of the major intracranial arterial vessels are identified. The imaged portions of the paranasal sinuses, mastoid air cells, and orbits are unremarkable. IMPRESSION: Punctate restricted diffusion in the right periventricular white matter and basal ganglia compatible with an embolic stroke. ACT 112: Negative or not required by law. Electronically signed by: Ben López M.D. 05/22/2024 10:55 AM Head CTA 05/22/24 12:37 CT angio neck with con, CT angio head w con CLINICAL HISTORY: rule out LVO TECHNIQUE: CT angiography of the head and neck was performed following intravenous administration of iodinated contrast. Coronal and sagittal MIPS were obtained from the axial data set and were submitted for review. Automated dose lowering techniques and/or adjustment according to patient size were utilized for this examination. All measurements were calculated based on NASCET criteria. CT DOSE: 397.26 mGy.cm Comparison: Comparison is made to MRI brain 05/22/2024 FINDINGS: Lungs and soft tissues are unremarkable. CTA Neck: The aortic arch and the origins of the innominate, left subclavian, and left common carotid artery are not imaged. There is no significant atheroscl erotic plaque in the aortic arch or the origins of the innominate, left common carotid, and left subclavian arteries. There is mild calcified atherosclerotic plaque at the bifurcation of the bilateral common carotid arteries without hemodynamically significant flow stenosis. There is no dissection present. The left vertebral artery is dominant. There is narrowing of the V4 segment of the right vertebral artery which is likely nonhemodynamically significant. CTA Head: The anterior and posterior cerebral circulations are patent. Focal cutoff of the right MCA is seen near the origin with distal reconstitution. Nonhemodynamically significant stenosis of the basilar artery is seen in multiple foci. IMPRESSION: 1. No occlusion, hemodynamically significant stenosis, or dissection in the m ajor cervical arteries. 2. Focal cutoff of the origin of the right MCA with distal reconstitution in this patient with infarcts of the right periventricular white matter and basal ganglia. 3. Diffuse atherosclerotic disease is seen with no hemodynamically significant stenosis most prominently in the right vertebral artery and basilar artery. Assessment of stenosis of the internal carotid arteries is based on NASCET criteria. ACT 112: Negative or not required by law. Electronically signed by: Ben López M.D. 05/22/2024 3:54 PM Neck CTA 05/22/24 12:37 CT angio neck with con, CT angio head w con CLINICAL HISTORY: rule out LVO TECHNIQUE: CT angiography of the head and neck was performed following intravenous administration of iodinated contrast. Coronal and sagittal MIPS were obtained from the axial data set and were submitted for review. Automated dose lowering techniques and/or adjustment according to patient size were utilized for this examination. All measurements were calculated based on NASCET criteria. CT DOSE: 397.26 mGy.cm Comparison: Comparison is made to MRI brain 05/22/2024 FINDINGS: Lungs and soft tissues are unremarkable. CTA Neck: The aortic arch and the origins of the innominate, left subclavian, and left common carotid artery are not imaged. There is no significant atherosclerotic plaque in the aortic arch or the origins of the innominate, left common carotid, and left subclavian arteries. There is mild calcified atherosclerotic plaque at the bifurcation of the bilateral common carotid arteries without hemodynamically significant flow stenosis. There is no dissection present. The left vertebral artery is dominant. There is narrowing of the V4 segment of the right vertebral artery which is likely nonhemodynamically significant. CTA Head: The anterior and posterior cerebral circulations are patent. Focal cutoff of the right MCA is seen near the origin with distal reconstitution. Nonhemodynamically significant stenosis of the basilar artery is seen in multiple foci. IMPRESSION: 1. No occlusion, hemodynamically significant stenosis, or dissection in the major cervical arteries. 2. Focal cutoff of the origin of the right MCA with distal reconstitution in this patient with infarcts of the right periventricular white matter and basal ganglia. 3. Diffuse atherosclerotic disease is seen with no hemodynamically significant stenosis most prominently in the right vertebral artery and basilar artery. Assessment of stenosis of the internal carotid arteries is based on NASCET criteria. ACT 112: Negative or not required by law. Electronically signed by: Ben López M.D. 05/22/2024 3:54 PM Medications Administered Home Medications Medication Instructions Recorded Confirmed Last Taken lisinopril 10 mg tablet 10 mg PO DAILY 05/21/24 05/21/24 05/21/24 rivastigmine 9.5 mg/24 hour 9.5 mg topical DAILY 05/21/24 05/21/24 05/21/24 transdermal patch Active Medications Generic Name Dose Route Start Last Admin Trade Name Freq PRN Reason Stop Dose Admin Aspirin 81 mg 05/22/24 11:45 05/22/24 13:39 Aspirin 81 Mg Ectab PO 06/21/24 11:44 81 mg QAM GUS Administration Enoxaparin Sodium 40 mg 05/22/24 09:00 05/22/24 09:27 Enoxaparin Inj 40 Mg/0.4 Ml Syr SQ 06/21/24 08:59 40 mg QAM GUS Administration Ceftriaxone Sodium 2,000 mg in 50 mls @ 100 mls/hr 05/21/24 19:00 05/21/24 19:48 Rocephin IV 05/26/24 18:59 Infused Q24H GUS Infusion Lisinopril 10 mg 05/22/24 09:00 05/22/24 08:53 Lisinopril 10 Mg Tab PO 06/21/24 08:59 10 mg DAILY GUS Administration Miscellaneous 1 each 05/22/24 00:00 05/22/24 15:11 Exelon Patch: Order Awaiting Action N/A 06/21/24 00:00 Not Given QS GUS Rosuvastatin Calcium 20 mg 05/22/24 11:45 05/22/24 13:38 Rosuvastatin Calcium 20 Mg Tab PO 06/21/24 11:44 20 mg QAM GUS Administration
[2024-05-22] MEDS: CLOPIDOGREL BISULFATE 75 MG TAB PO SCH (17:58)
[2024-05-22] MEDS: MELATONIN 3 MG TAB PO PRN (21:06)
[2024-05-22] MEDS: QUEtiapine FUMARATE 25 MG TABLET PO STA (22:32)
[2024-05-23 06:28] LABS: Basophils # (auto) 0.03 K/uL (0.00-0.20); Basophils % (auto) 0.6 %; Eosinophils # (auto) 0.11 K/uL (0.00-0.50); Eosinophils % (auto) 2.2 %; Hematocrit (blood only) 42.8 % (37.0-47.0); Hemoglobin 14.3 g/dl (12.0-16.0); Immature Granulocytes # (auto) 0.02 K/uL (0.01-0.20); Immature Granulocytes % (auto) 0.4 %; Lymphocytes # (auto) 1.45 K/uL (1.20-3.40); Lymphocytes % (auto) 28.5 %; Mean Corpuscular Hemoglobin 29.3 pg (25.0-34.0); Mean Corpuscular Hgb Conc 33.4 g/dL (32.0-36.0); Mean Corpuscular Volume 87.7 fL (80.0-100.0); Mean Platelet Volume 10.2 fL (9.4-12.4); Monocytes # (auto) 0.51 K/uL (0.11-0.59); Neutrophils # (auto) 2.97 K/uL (1.40-6.50); Neutrophils % (auto) 58.3 %; Platelet Count 223 K/uL (130-400); RDW Coefficient of Variation 13.5 % (11.5-14.5); RDW Standard Deviation 43.6 fL (36.4-46.3); Red Blood Count 4.88 M/uL (4.20-5.40); White Blood Count 5.09 K/ul (4.8-10.8)
[2024-05-23 06:54] LABS: BUN Creatinine Ratio 12.5 (10-20); Chol HDL Ratio 4.6 (0-5); Creatinine Clr Calc Pharmacy 54.9 ml/min; Est GFR (African American) 92.3 ml/min; Est GFR (Non-African American) 79.7 ml/min; Potassium 3.9 mmol/L (3.5-5.1)
--- NOTE | 2024-05-23 08:50 | Hospitalist Progress Note ---
Date of Service May 23, 2024 Assessment & Plan (1) UTI (urinary tract infection): (2) Stroke-like symptoms: (3) Alzheimer dementia: (4) Essential hypertension: (5) Acute CVA (cerebrovascular accident): Plan 78-year-old female with history of Alzheimer's dementia on Exelon patch, hypertension was brought to the ED by family for concern for slurred speech, slight facial droop Acute CVA Possibly Embolic had slurred speech, may be slight left facial droop on admission. Neuro exam unremarkable. CT head unremarkable. Brain MRI shows punctate restricted diffusion in the right periventricular white matter and basal ganglia compatible with an embolic stroke. CTA head and neck did not show any hemodynamically significant stenosis. Focal cutoff of the origin of the right MCA with distal reconstitution. Diffuse atherosclerosis disease seen. Echocardiogram shows EF of 55 to 60% with borderline concentric LVH, grade [address] head on 05/23- no acute finds; punctate hypodense foci suggested within right basal ganglia corresponding to patient's known infracts seen in MRI Continue on aspirin and Plavix as per recommendation neurology. Plan to continue it for 21 days, then aspirin alone. Started on rosuvastatin; LDH of 97 Continue to monitor on telemetry PT OT eval Outpatient follow-up for Zio patch with PCP Acute UTI Patient presents with slurred speech and slight facial droop Urinalysis suggest infection Urine culture growing E.coli; pansensitive Continue on ceftriaxone; Treat for 5 days. Alzheimer's dementia- on exelon patch. Delirium precautions. HTN- continue lisinopril. DVT ppx- sc lovenox DNR/DNI Dispo-Hospitalized for acute CVA and UTI. PT OT eval pending Time spent evaluating patient, direct bedside care, chart review, placing orders, interpretation of diagnostic studies, discussion with consultants, patient, and family members, as well as other required patient management activities is 50 minutes Please note the above document was generated using voice recognition software. It may contain grammatical, syntax or spelling errors. Any formal questions or concerns about the content, text or information contained within the body of this dictation should be directly addressed to the provider for clarification Admission and Anticipated Discharge Date Admission Date: May 21, 2024 Subjective Patient seen and examined at bedside. Comfortable; not in distress. Denies fever, chills, chest pain, shortness of breath, abdominal pain or urinary symptoms. No significant overnight events Review of Systems Review of Systems: All systems reviewed & are unremarkable except as noted in Subjective Physical Exam Physical Exam: General: Lying comfortably in bed, not in distress, on room air HEENT: EOMI, JIMENEZ, MMM Chest: Clear breath sounds bilaterally, no wheezes or crackles CVS: Regular rate and rhythm, normal heart sounds, no murmur Abdomen: Soft, non tender, not distended, normal bowel sounds Neuro: Awake, alert, oriented x2, conversing appropriately. No Pronator drift. left arm slightly weaker- 4/5 and left facial asymmetrical Extremities: No cyanosis, clubbing or edema Psych: calm, cooperative, demented at baseline Results & Data Results & Data Vital Signs (Past 12 Hours) Vital Signs Temp Pulse Pulse Resp BP BP Pulse Ox 05/23/24 07:42 36.7 C 49 L 16 151/79 H 95 05/23/24 06:52 46 L 05/23/24 04:17 36.6 C 53 L 16 133/76 97 05/22/24 22:51 36.6 C 51 L 18 164/83 H 97 05/22/24 21:50 51 L O2 Del Method 05/23/24 07:42 Room Air 05/23/24 06:52 05/23/24 04:17 Room Air 05/22/24 22:51 Room Air 05/22/24 21:50
[2024-05-23 08:51] LABS: Estimated Average Glucose 111 mg/dl; Hemoglobin A1C 5.5 % (4.5-5.6)
--- NOTE | 2024-05-23 12:17 | CT Scan Report ---
HEAD CT NONCONTRAST CT DOSE: 547.75 mGy.cm HISTORY: embolic stroke, slight progression of facial weakn TECHNIQUE: Multiaxial CT images of the head were performed without the use of intravenous contrast. A utomated exposure control was utilized for this study. A dose lowering technique was utilized adheri ng to the principles of ALARA. Comparison: Brain MRI 05/22/2024. Head CT 05/21/2024. Findings: The paranasal sinuses and mastoid air cells are clear. The calvarium and skull base are int act. There is no mass, hematoma, or midline shift. White matter hypodensity is nonspecific but sugges tive of microvascular ischemic change. The ventricles and sulci demonstrate mild age-related involuti onal changes. There is a 2.6 cm right posterior fossa arachnoid cyst again noted. Subtle punctate hyp odense foci suggested within the right basal ganglia likely corresponding to the patient's known evol ving infarcts better appreciated on the recent brain MRI. No evidence for hemorrhagic transformation. Impression: Subtle punctate hypodense foci suggested within the right basal ganglia likely corresponding to the p atient's known evolving infarcts better appreciated on the recent brain MRI. No evidence for hemorrha gic transformation. ACT 112: Negative or not required by law. Electronically signed by: Ron Chapin M.D. 05/23/2024 12:15 PM
[2024-05-23] MEDS: OLANZapine 10 MG/2.1 ML SDV IM SCH (15:06)
[2024-05-23] MEDS ORDERED: OLANZapine 10 MG/2.1 ML SDV IM PRN (15:10)
[2024-05-24 06:55] LABS: Basophils # (auto) 0.05 K/uL (0.00-0.20); Basophils % (auto) 0.8 %; Eosinophils # (auto) 0.18 K/uL (0.00-0.50); Eosinophils % (auto) 2.7 %; Hematocrit (blood only) 43.5 % (37.0-47.0); Hemoglobin 14.5 g/dl (12.0-16.0); Immature Granulocytes # (auto) 0.04 K/uL (0.01-0.20); Immature Granulocytes % (auto) 0.6 %; Lymphocytes # (auto) 1.71 K/uL (1.20-3.40); Lymphocytes % (auto) 25.8 %; Mean Corpuscular Hemoglobin 28.7 pg (25.0-34.0); Mean Corpuscular Hgb Conc 33.3 g/dL (32.0-36.0); Mean Platelet Volume 10.4 fL (9.4-12.4); Monocytes # (auto) 0.64 K/uL (0.11-0.59); Monocytes % (auto) 9.7 %; Neutrophils % (auto) 60.4 %; Platelet Count 236 K/uL (130-400); RDW Coefficient of Variation 13.6 % (11.5-14.5); RDW Standard Deviation 42.8 fL (36.4-46.3); Red Blood Count 5.06 M/uL (4.20-5.40); White Blood Count 6.62 K/ul (4.8-10.8)
[2024-05-24 07:22] LABS: BUN Creatinine Ratio 16.9 (10-20); Calcium 8.7 mg/dl (8.6-10.3); Creatinine Clr Calc Pharmacy 51.3 ml/min; Est GFR (African American) 85.1 ml/min; Est GFR (Non-African American) 73.4 ml/min; Potassium 4.3 mmol/L (3.5-5.1)
--- NOTE | 2024-05-24 09:03 | Hospitalist Progress Note ---
Date of Service May 24, 2024 Assessment & Plan (1) UTI (urinary tract infection): (2) Stroke-like symptoms: (3) Alzheimer dementia: (4) Essential hypertension: (5) Acute CVA (cerebrovascular accident): Plan 78-year-old female with history of Alzheimer's dementia on Exelon patch, hypertension was brought to the ED by family for concern for slurred speech, slight facial droop Acute CVA Possibly Embolic Presented with left facial droop and slurred speech CT head on admission unremarkable. Brain MRI shows punctate restricted diffusion in the right periventricular white matter and basal ganglia compatible with an embolic stroke. CTA head and neck did not show any hemodynamically significant stenosis. Focal cutoff of the origin of the right MCA with distal reconstitution. Diffuse atherosclerosis disease seen. Echocardiogram shows EF of 55 to 60% with borderline concentric LVH, grade [address] head on 05/23- no acute findings; punctate hypodense foci suggested within right basal ganglia corresponding to patient's known infracts seen in MRI Continue on aspirin and Plavix as per recommendation neurology. Plan to continue it for 21 days, then aspirin alone. Started on rosuvastatin; LDH of 97 Continue to monitor on telemetry PT OT eval Outpatient follow-up for Zio patch with PCP Acute UTI Patient presents with slurred speech and slight facial droop Urinalysis suggest infection Urine culture growing E.coli; pansensitive Continue on ceftriaxone; Treat for 5 days. Alzheimer's dementia- on exelon patch. Delirium precautions. HTN- continue lisinopril. DVT ppx- sc lovenox DNR/DNI Dispo-Hospitalized for acute CVA and UTI. PT OT evaluation done; recommend home with 24/7 supervision Time spent evaluating patient, direct bedside care, chart review, placing orders, interpretation of diagnostic studies, discussion with consultants, patient, and family members, as well as other required patient management activities is 50 minutes Please note the above document was generated using voice recognition software. It may contain grammatical, syntax or spelling errors. Any formal questions or concerns about the content, text or information contained within the body of this dictation should be directly addressed to the provider for clarification Admission and Anticipated Discharge Date Admission Date: May 21, 2024 Subjective Patient seen and examined at bedside She is comfortable; agitated at times. She needs frequent redirection Review of Systems Review of Systems: Unobtainable due to cognitive status Physical Exam Physical Exam: General: Lying comfortably in bed, not in distress, on room air HEENT: EOMI, JIMENEZ, MMM Chest: Clear breath sounds bilaterally, no wheezes or crackles CVS: Regular rate and rhythm, normal heart sounds, no murmur Abdomen: Soft, non tender, not distended, normal bowel sounds Neuro: Awake, alert, oriented x2, conversing appropriately. No Pronator drift. left arm slightly weaker- 4/5 and left facial asymmetrical Extremities: No cyanosis, clubbing or edema Psych: calm, cooperative, demented at baseline Results & Data Results & Data Vital Signs (Past 12 Hours) Vital Signs Temp Pulse Pulse Resp BP Pulse Ox O2 Del Method 05/24/24 07:41 53 L 05/24/24 07:20 36.5 C 52 L 20 167/83 H 96 Room Air 05/24/24 03:02 36.4 C L 56 L 18 145/74 H 97 Room Air 05/23/24 23:02 36.8 C 54 L 18 145/74 H 93 Room Air 05/23/24 21:42 74
--- NOTE | 2024-05-24 09:49 | Pharmacy Report ---
- Date of Service May 24, 2024 - Pharmacy CVA/TIA Medication Review Medications to Prevent Stroke handout has been added to the patients discharge packet. Antiplatelet(s) * Aspirin 81 mg PO daily + clopidogrel 75 mg PO daily x at least 3 weeks Cholesterol * High intensity statin: rosuvastatin 20 mg daily DVT Prophylaxis * Enoxaparin SQ Therapeutic Anticoagulation * No history of Afib/Aflutter noted Type 2 Diabetes * Patient does not have T2DM
[2024-05-24] MEDS ORDERED: STROKE PATIENT DISCHARGE STA (10:27)
--- NOTE | 2024-05-24 13:47 | Discharge Summary ---
Date of Service May 24, 2024 Admission HPI Per Admitting Provider 78-year-old female with history of Alzheimer's dementia on Exelon patch, hypertension was brought to the ED by family for concern for slurred speech, slight facial droop. Patient is awake alert oriented x 2 and able to converse but not able to provide full history given her dementia. Per family at bedside, when he spoke her over the phone, she had slurred speech, like she was drunk, also noted she had somewhat side effects on the right side. She will feel safe at home with caregivers 3 times a week for 4 hours, however family lives with 6 minutes away. She is able to ambulate without any issues. Her dementia is recently getting worse and she started to have sundowning and wandering. Per family, last well-known time was maybe 2 to 3 days ago. She does not smoke or drink alcohol. She does not have any history of TIA or stroke. No history of heart or lung disease. No history of A-fib. No history of blood clots. Admission Exam Per Admitting Provider General: Lying comfortably in bed, not in distress, on room air HEENT: EOMI, JIMENEZ, MMM Chest: Clear breath sounds bilaterally, no wheezes or crackles CVS: Regular rate and rhythm, normal heart sounds, no murmur Abdomen: Soft, non tender, not distended, normal bowel sounds Neuro: Awake, alert, oriented x2, conversing appropriately. No Pronator drift. strength 5/5 on all extremities. sensation grossly intact. finger-nose test unremarkable. Gait not checked. Cranial nerves grossly intact Extremities: No cyanosis, clubbing or edema Psych: calm, cooperative, demented at baseline Principal Diagnosis Acute CVA Possibly Embolic Acute UTI Discharge Exam General: Lying comfortably in bed, not in distress, on room air HEENT: EOMI, JIMENEZ, MMM Chest: Clear breath sounds bilaterally, no wheezes or crackles CVS: Regular rate and rhythm, normal heart sounds, no murmur Abdomen: Soft, non tender, not distended, normal bowel sounds Neuro: Awake, alert, oriented x2, conversing appropriately. No Pronator drift. left arm slightly weaker- 4/5 and left facial asymmetrical Extremities: No cyanosis, clubbing or edema Psych: calm, cooperative, demented at baseline Discharge Data Allergies Allergy/AdvReac Type Severity Reaction Status Date / Time shellfish derived AdvReac Intermediate SORENESS Verified 05/21/24 18:01 AROUND URETHRA WITH RASH, BURINING WITH URINATION Consultations 05/21/24 18:24 ED Decision to Admit Stat 05/22/24 11:31 Consult Neurology Routine Ordered Studies 05/21/24 16:19 CT head/brain wo con Stat 05/21/24 19:03 US carotid doppler BI Routine 05/22/24 08:00 MR brain wo con Routine 05/22/24 12:37 CTA head w con [CT angio head w con] Stat CTA neck with con [CT angio neck with con] Stat 05/23/24 11:34 CT head/brain wo con Urgent Hospital Course (1) UTI (urinary tract infection): (2) Stroke-like symptoms: (3) Alzheimer dementia: (4) Essential hypertension: (5) Acute CVA (cerebrovascular accident): Plan 78-year-old female with history of Alzheimer's dementia on Exelon patch, hypertension was brought to the ED by family for concern for slurred speech, slight facial droop Acute CVA Possibly Embolic Presented with left facial droop and slurred speech CT head on admission unremarkable. Brain MRI shows punctate restricted diffusion in the right periventricular white matter and basal ganglia compatible with an embolic stroke. CTA head and neck did not show any hemodynamically significant stenosis. Focal cutoff of the origin of the right MCA with distal reconstitution. Diffuse atherosclerosis disease seen. Echocardiogram shows EF of 55 to 60% with borderline concentric LVH, grade [address] head on 05/23- no acute findings; punctate hypodense foci suggested within right basal ganglia corresponding to patient's known infracts seen in MRI At discharge, patient was placed on aspirin Plavix for 21 days as recommended by neurology. She was also discharged on rosuvastatin 20 mg once a day PT OT recommended home with supervision 12/05 Discussed with patient's son on the day of the discharge; he prefers her to come home with him. I recommended outpatient follow-up and Zio patch as outpatient with her primary care doctor which the son agreed. Acute UTI Patient presents with slurred speech and slight facial droop Urinalysis suggest infection Urine culture growing E.coli; pansensitive She was treated with ceftriaxone during the hospitalization; at discharge she was placed on Augmentin to complete the antibiotic course Please note the above document was generated using voice recognition software. It may contain grammatical, syntax or spelling errors. Any formal questions or concerns about the content, text or information contained within the body of this dictation should be directly addressed to the provider for clarification Total Time Total Time Spent Total Time Spent (In Minutes): 45 Total Time Includes: Examination of the Patient, Discharge Planning, Medication Reconciliation, Communication With Other Providers and Other Discharge Plan Discharge Items Patient Disposition: Home - Self-Care Reason For Visit: SLURRED SPEECH Discharge Diagnosis: Acute CVA Acute UTI Activity: Resume your previous activity Non-emergency contact: Primary Care Provider Call non-emergency contact if: you have any medication questions and your symptoms worsen Follow-up/Referrals: Alejo Coburn MD [Primary Care Provider] - Diet: Regular Addtl Attending Provider Instructions: You were admitted to the hospital for a Stoke. You are prescribed following medication to prevent future strokes. 1) Plavix 75mg once a day for 19 days. 2) Aspirin 81mg once a day. This needs to continued indefinitely. 3) Rosuvastatin 20mg once a day. The dose of Lisinopril has been increased to 20mg once a day from 10mg once a day for better blood pressure control. You are also prescribed Augmentin twice a day for 2 days for Urinary tract infection. Pending Studies at Discharge: No Stand-Alone Forms: My [facility], Smoking Cessation, Medications to Prevent Stroke Medications and DC Order Prescriptions: New clopidogrel 75 mg Tablet 75 mg PO QAM 19 Days Qty: 19 0RF aspirin 81 mg Tablet,Delayed Release (Dr/Ec) 81 mg PO QAM Qty: 60 0RF rosuvastatin 20 mg Tablet 20 mg PO QAM Qty: 30 0RF lisinopril 20 mg tablet 20 mg PO DAILY Qty: 30 0RF amoxicillin-pot clavulanate 875-125 mg tablet 1 tab PO BID 2 Days Qty: 4 0RF Continued rivastigmine 9.5 mg/24 hour patch 24 hour 9.5 mg topical DAILY Discontinued lisinopril 10 mg tablet 10 mg PO DAILY Discharge Orders: Discharge Order (Routine); Ordered 05/24/24 Ordered By: Jacob Canales Admission Data Admit Date/Time: 05/21/24 18:55 Attending Provider: Jacob Canales Admit Provider: Barrington Sauceda Primary Care Provider: Alejo Coburn Other Providers: Barrington Sauceda; Alejo Will Other Interventions: Discharge Summary Assessment (RN) Last Done: 05/24/24 12:08
== END 2024-05-24 13:35 | disposition home or self-care (01) | DRG 65 ==
LOC: ED 16:13 → SUATTDRO 18:55 → EDINP 18:55 → 2N 21:28

== ENCOUNTER 2024-05-24 15:06 | Inpatient (IN) ==
[2024-05-24] MEDS ORDERED: MoRPHine SULFATE 4 MG/ML 1 ML CARP\\VIAL IV PRN (15:23)
[2024-05-24] MEDS ORDERED: MoRPHine SULFATE 2 MG/ML CARP IV PRN (15:23)
--- NOTE | 2024-05-24 15:25 | Emergency Department Note ---
Impression & Plan Closed hip fracture, Fall, Clavicle fracture ED Provider Note NAME: ARCADIO PICKARD AGE: 78 SEX: F : 1945 ARRIVES VIA: Ambulance INFORMANT: Patient ED PROVIDER(S): Parish Wiggins DO CHIEF COMPLAINT: fall HPI: Patient is a 78-year-old female who was just discharged from the hospital today following acute CVA who was walking and turned and lost her balance and fell. She was not dizzy or lightheaded. She fell onto her left hip. It happened so quickly that she does not recall if she hit her head but does believe that she may have. She denies any chest pain or shortness of breath. No belly pain. No chest pain. No tingling or numbness in the leg. No other exacerbating or remitting factors. ADDITIONAL HISTORY OBTAINED: Per HPI Chronic Medical/Social Conditions Affecting Care: Per HPI PAST MEDICAL HISTORY:See Below PAST SURGICAL HISTORY:See Below FAMILY HISTORY:See Below SOCIAL HISTORY:See Below HOME MEDICATIONS:See Below ALLERGIES:See Below VITALS:See Below PHYSICAL EXAMINATION: GENERAL: alert, well appearing, well nourished, no distress, non-toxic HEAD: normal cephalic, atraumatic EYE EXAM: normal conjunctiva, PERRL and EOM's grossly intact OROPHARYNX: no exudate, no erythema, lips, buccal mucosa, and tongue normal and mucous membranes are moist NECK: supple, no nuchal rigidity, no adenopathy, non-tender, cervical collar in place CHEST: stable to compression anteriorly and posteriorly LUNGS: clear to auscultation. Normal chest wall mechanics HEART: no murmurs, S1 normal and S2 normal ABDOMEN: abdomen soft, non-tender, normo-active bowel sounds, no masses, no rebound or guarding. PELVIS: stable to compression anteriorly and posteriorly BACK: Back is symmetrical on inspection and there is no deformity, no midline tenderness, no CVA tenderness. UPPER EXTREMITIES: full active and passive range of motion of all joints without tenderness to palpation LOWER EXTREMITIES: No tenderness throughout the entire right lower extremity on palpitation. Left lower extremity is externally rotated at the hip and appears shortened with flexion at the knee. No tenderness throughout the foot tib-fib knee or distal femur. Regarding pain is focal over the left proximal femur. DP and PT 2 out of 4. Gross sensation intact. NEURO EXAM: Normal sensorium, cranial nerves II-XII grossly intact, normal speech, no gross weakness of arms, GCS 15 MEDICAL DECISION MAKING: Patient is a 78-year-old female who presents the ER who was just discharged earlier today from the hospital following which she fell. She is complaining of left hip pain. IV was established blood work was obtained. Labs show no significant leukocytosis or anemia. BMP along with LFTs bilirubin and lipase is unremarkable. Troponin was negative. X-rays show a left hip fracture. I did discuss with the orthopedists as well as the hospitalist and patient was admitted for further workup. She was given IV morphine and fluids. CT head and cervical spine was negative. X-ray of the chest shows a left clavicle fracture. Consults/Care Managements Discussions: Per [facility] Triage Nursing notes reviewed. Limited review of prior medical records performed Vital Signs: reviewed and remarkable for no significant abnormalities Differential diagnosis: Cardiac ischemia, aortic dissection, pulmonary embolism, pneumothorax, pneumonia, pericarditis, myocarditis, esophageal rupture, GERD, cholecystitis, pancreatitis, musculoskeletal, as well as other pathologies. ER treatment provided: See below Diagnostics interpreted by me include EKG and cardiac monitoring as listed below: -Cardiac Monitoring: An order was placed for continuous cardiac monitoring. The monitor shows a rate of 87 with sinus rhythm. -ECG: Sinus rhythm or rate of 68 Left axis Right bundle branch block QTc 484 -Laboratory studies:Interpreted by me as stated above in MDM and shown below. Imaging studies: Xrays: As interpreted by me: X-ray of the pelvis and hip shows a left hip fracture Portable AP upright 1 view the chest shows a left clavicle fracture CTs show: CT head and cervical spine was negative Procedures:none Critical Care: None Past Med/Surg History Problem List (Updated 05/24/24 @ 20:47 by Parish Wiggins DO) Clavicle fracture (Acute) Fall (Acute) Closed hip fracture (Acute) Fracture of left clavicle Hip fracture, left Acute CVA (cerebrovascular accident) Essential hypertension Alzheimer dementia (Acute) Stroke-like symptoms (Acute) UTI (urinary tract infection) (Acute) 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) Medical History Hypothyroid Social History Smoking Status: Never smoker Hx Alcohol Use: No Hx Substance Use: No Preferred Language: Kinyarwanda Communication Ability: Effective Compensation Associate Required: No Feels Safe at Home: Yes Assistive Devices: None Allergies Allergies Allergy/AdvReac Type Severity Reaction Status Date / Time shellfish derived AdvReac Intermediate SORENESS Verified 05/21/24 18:01 AROUND URETHRA WITH RASH, BURINING WITH URINATION Home Meds Home Medications Medication Instructions Recorded Confirmed rivastigmine 9.5 mg/24 hour 9.5 mg topical DAILY 05/21/24 05/24/24 transdermal patch Previous Rx's Medication Instructions Recorded amoxicillin 875 mg-potassium 1 tab PO BID 2 days #4 tabs 05/24/24 clavulanate 125 mg tablet aspirin 81 mg tablet,delayed 81 mg PO QAM #60 tabs 05/24/24 release clopidogrel 75 mg tablet 75 mg PO QAM 19 days #19 tabs 05/24/24 lisinopril 20 mg tablet 20 mg PO DAILY #30 tabs 05/24/24 rosuvastatin 20 mg tablet 20 mg PO QAM #30 tabs 05/24/24 Results & Data (ED) Vital Signs Vital Signs - 24 hr 05/24/24 15:14 05/24/24 15:14 05/24/24 15:18 Temperature 36.6 C 36.6 C Temperature Source Oral Pulse Rate 56 L Pulse Rate [Apical] 60 Pulse Rate from SpO2 Sensor Respiratory Rate 18 18 Respiratory Effort / Characteristics Non-Labored Respiratory Depth Normal Blood Pressure 190/83 H 190/83 H Blood Pressure [Left Arm] 190/83 H Blood Pressure Mean 105 Blood Pressure Mean [Left Arm] 118 Pulse Oximetry 95 95 Oxygen Delivery Method Room Air Room Air Sepsis Recent Fever Within 48 Hours Sepsis New/Unexplained Change in Mental Status Sepsis Action Taken by Nursing 05/24/24 15:18 05/24/24 15:21 05/24/24 15:25 Temperature 36.6 C Temperature Source Oral Pulse Rate 57 L 62 Pulse Rate [Apical] Pulse Rate from SpO2 Sensor 58 L Respiratory Rate 23 18 Respiratory Effort / Characteristics Non-Labored Respiratory Depth Normal Blood Pressure 190/83 H 101/84 Blood Pressure [Left Arm] Blood Pressure Mean 105 89 Blood Pressure Mean [Left Arm] Pulse Oximetry 96 95 Oxygen Delivery Method Room Air Sepsis Recent Fever Within 48 Hours No Sepsis New/Unexplained Change in Mental Status No Sepsis Action Taken by Nursing No Action Required 05/24/24 15:25 05/24/24 15:31 05/24/24 15:36 Temperature Temperature Source Pulse Rate 57 L Pulse Rate [Apical] Pulse Rate from SpO2 Sensor 56 L Respiratory Rate 21 Respiratory Effort / Characteristics Respiratory Depth Blood Pressure 193/104 H Blood Pressure [Left Arm] Blood Pressure Mean 150 Blood Pressure Mean [Left Arm] Pulse Oximetry 96 Oxygen Delivery Method Room Air Sepsis Recent Fever Within 48 Hours Sepsis New/Unexplained Change in Mental Status Sepsis Action Taken by Nursing 05/24/24 15:40 05/24/24 16:00 05/24/24 16:00 Temperature Temperature Source Pulse Rate 60 Pulse Rate [Apical] Pulse Rate from SpO2 Sensor Respiratory Rate Respiratory Effort / Characteristics Respiratory Depth Normal Blood Pressure 144/91 H Blood Pressure [Left Arm] Blood Pressure Mean 106 Blood Pressure Mean [Left Arm] Pulse Oximetry Oxygen Delivery Method Sepsis Recent Fever Within 48 Hours Sepsis New/Unexplained Change in Mental Status Sepsis Action Taken by Nursing 05/24/24 16:00 05/24/24 16:00 05/24/24 16:03 Temperature Temperature Source Pulse Rate 67 67 Pulse Rate [Apical] Pulse Rate from SpO2 Sensor 67 66 Respiratory Rate 20 20 Respiratory Effort / Characteristics Respiratory Depth Blood Pressure 144/91 H Blood Pressure [Left Arm] Blood Pressure Mean 106 Blood Pressure Mean [Left Arm] Pulse Oximetry 89 L 90 Oxygen Delivery Method Sepsis Recent Fever Within 48 Hours Sepsis New/Unexplained Change in Mental Status Sepsis Action Taken by Nursing 05/24/24 16:30 05/24/24 16:30 05/24/24 16:33 Temperature Temperature Source Pulse Rate 66 Pulse Rate [Apical] Pulse Rate from SpO2 Sensor 65 Respiratory Rate 21 Respiratory Effort / Characteristics Respiratory Depth Blood Pressure 165/86 H 165/86 H Blood Pressure [Left Arm] Blood Pressure Mean 103 103 Blood Pressure Mean [Left Arm] Pulse Oximetry 95 Oxygen Delivery Method Sepsis Recent Fever Within 48 Hours Sepsis New/Unexplained Change in Mental Status Sepsis Action Taken by Nursing 05/24/24 17:00 05/24/24 17:00 05/24/24 17:00 Temperature Temperature Source Pulse Rate 68 Pulse Rate [Apical] Pulse Rate from SpO2 Sensor 69 Respiratory Rate 21 Respiratory Effort / Characteristics Respiratory Depth Normal Blood Pressure 172/86 H Blood Pressure [Left Arm] Blood Pressure Mean 120 Blood Pressure Mean [Left Arm] Pulse Oximetry 92 Oxygen Delivery Method Sepsis Recent Fever Within 48 Hours Sepsis New/Unexplained Change in Mental Status Sepsis Action Taken by Nursing 05/24/24 17:00 05/24/24 17:00 05/24/24 17:24 Temperature Temperature Source Pulse Rate 70 Pulse Rate [Apical] Pulse Rate from SpO2 Sensor 71 Respiratory Rate 21 Respiratory Effort / Characteristics Respiratory Depth Blood Pressure 172/86 H 172/86 H Blood Pressure [Left Arm] Blood Pressure Mean 120 120 Blood Pressure Mean [Left Arm] Pulse Oximetry 93 Oxygen Delivery Method Sepsis Recent Fever Within 48 Hours Sepsis New/Unexplained Change in Mental Status Sepsis Action Taken by Nursing Laboratory Data 05/24/24 15:20 05/24/24 15:20 Lab Results 05/24/24 Range/Units 15:20 WBC 8.96 (4.8-10.8) K/ul RBC 5.03 (4.20-5.40) M/uL Hgb 14.6 (12.0-16.0) g/dl Hct 43.1 (37.0-47.0) % MCV 85.7 (80.0-100.0) fL MCH 29.0 (25.0-34.0) pg MCHC 33.9 (32.0-36.0) g/dL RDW Std Deviation 42.7 (36.4-46.3) fL RDW Coeff of Allison 13.7 (11.5-14.5) % Plt Count 282 (130-400) K/uL MPV 10.1 (9.4-12.4) fL Immature Gran % (Auto) 1.0 % Neut % (Auto) 70.1 % Lymph % (Auto) 19.9 % [place] % (Auto) 6.8 % Eos % (Auto) 1.5 % Baso % (Auto) 0.7 % Neut # (Auto) 6.29 (1.40-6.50) K/uL Lymph # (Auto) 1.78 (1.20-3.40) K/uL [place] # (Auto) 0.61 H (0.11-0.59) K/uL Eos # (Auto) 0.13 (0.00-0.50) K/uL Baso # (Auto) 0.06 (0.00-0.20) K/uL Immature Gran # (Auto) 0.09 (0.01-0.20) K/uL Sodium 138 (136-145) mmol/L Potassium 4.1 (3.5-5.1) mmol/L Chloride 107 (98-107) mmol/L Carbon Dioxide 24 (21-32) mmol/L Anion Gap 7 (3-11) BUN 17 (6-23) mg/dl Creatinine 0.90 (0.6-1.2) mg/dl Est Cr Clr Drug Dosing 44.2 ml/min Est GFR ( Amer) 70.5 ml/min Est GFR (Non-Af Amer) 60.8 ml/min BUN/Creatinine Ratio 18.9 (10-20) Glucose 157 H (70-99(Fasting)) mg/dl Calcium 9.7 (8.6-10.3) mg/dl Total Bilirubin 0.5 (0.2-1.0) mg/dl AST 30 (13-39) U/L ALT 24 (7-52) U/L Alkaline Phosphatase 78 (34-104) U/L Troponin I High Sens 4.2 (0-14) pg/ml Total Protein 6.1 (6.0-8.3) gm/dl Albumin 3.9 (3.4-5.0) gm/dl Globulin 2.2 L (2.5-4.0) gm/dl Albumin/Globulin Ratio 1.8 (0.9-2) Lipase 40 (11-82) U/L Administered Medications Discontinued Medications Morphine Sulfate (Morphine Sulfate 4 Mg/Ml 1 Ml Carp\Vial) 4 mg IV NOW STA Stop: 05/24/24 15:23 Last Admin: 05/24/24 15:51 Dose: 4 mg Documented By: AY Imaging Data Radiologist's Impression: Cervical Spine CT 05/24/24 15:22 CT SCAN OF THE CERVICAL SPINE CLINICAL HISTORY: Fall. COMPARISON STUDY: CT angiogram of the neck dated 05/22/2024. TECHNIQUE: CT scan of the cervical spine is performed from the skull base to the upper thoracic spine. Images are reviewed in the axial, sagittal, and coronal planes. IV contrast was not administered for this examination. A dose lowering technique was utilized adhering to the principles of ALARA. FINDINGS: Skeletal structures: The skeletal structures are osteopenic. There is no evidence of fracture or subluxation involving the cervical spine. Vertebral body height and alignment are maintained. There is straightening of the cervical lordosis. Anterior osteophytes are seen throughout. The odontoid process and lateral masses are intact. The atlantoaxial articulation is preserved nothing productive degenerative change. The spinous processes appear intact. There is moderate to advanced multilevel cervical spondylosis. Uncovertebral and facet arthropathy contribute to neural foraminal narrowing at several levels. There is a displaced oblique fracture through the mid to distal shaft of the left clavicle. Intervertebral discs: There is [id number] multilevel degenerative disc space narrowing, greatest at C5-C6. Central canal: Posterior disc osteophyte complexes at C4-C5 and C5-C6 may contribute to mild acquired compromise of the central canal. Soft tissues: The prevertebral and paraspinous soft tissues are within normal limits. There is atherosclerotic calcification of the carotid bulbs. There is hemorrhage around the left clavicular fracture. Calvarium: The visualized calvarium at the skull base appears intact. Brain parenchyma: Partially visualized brain parenchyma at the skull base is within normal limits. Sinuses and mastoids: The visualized paranasal sinuses are clear. The mastoid air cells are well pneumatized. Lung apices: Clear as visualized. IMPRESSION: 1. There is no evidence of fracture or subluxation involving the cervical spine. 2. Osteopenia and spondylotic change as above. 3. Left clavicular fracture. ACT 112: Negative or not required by law. Electronically signed by: Junior Caceres M.D. 05/24/2024 4:30 PM Chest X-Ray 05/24/24 15:22 SINGLE VIEW CHEST CLINICAL HISTORY: Trauma. Atypical chest pain. FINDINGS: An AP, portable, supine chest radiograph is compared to study dated 04/24/2023. The heart is enlarged indenting atherosclerotic calcification of the thoracic aorta. The pulmonary vasculature is not congested. Chronic interstitial thickening is similar previous. There is bibasilar scarring/atelectasis. No airspace consolidation or large pleural effusion is identified. No pneumothorax is seen. The skeletal structures are osteopenic. There is a displaced oblique fracture through the mid to distal shaft of the left clavicle. IMPRESSION: 1. Cardiomegaly with no acute cardiopulmonary abnormality identified. 2. Left clavicular fracture. ACT 112: Negative or not required by law. Electronically signed by: Junior Caceres M.D. 05/24/2024 3:[address] 05/24/24 15:22 CT OF THE HEAD WITHOUT CONTRAST CLINICAL HISTORY: Fall. COMPARISON STUDY: MRI of the brain May 22, 2024. Head CT May 23, 2024. CT DOSE: 1095.25 mGy.cm TECHNIQUE: Helical axial images of the head were obtained without IV contrast. Automated exposure control was utilized for the study. A dose lowering technique was utilized adhering to the principles of ALARA. FINDINGS: No acute intracranial hemorrhage, midline shift or mass effect is present. The ventricular system is stable. Basal cisterns are patent. There are no intra-axial collections. Subtle small hypodensities within the periventricular right frontal lobe and right basal ganglia are similar to head CT of May 23, 2024. Appearance of the brain is unchanged. 3.5 cm CSF attenuation focus within the right cerebellopontine angle favors an arachnoid cyst. There are no calvarial fractures. IMPRESSION: 1. No acute intracranial findings. 2. No calvarial fracture. 3. Subtle small hypodensities within the periventricular right frontal lobe and right basal ganglia, similar to prior head CT. These likely correspond to known small evolving infarcts better depicted on prior MRI. ACT 112: Negative or not required by law. Electronically signed by: Gil Toscano M.D. 05/24/2024 4:35 PM Hip/Pelvis X-Ray 05/24/24 15:22 XR hip LT 2V w pelvis CLINICAL HISTORY: Left hip pain following fall. COMPARISON: None FINDINGS: Sacroiliac joints and symphysis pubis are intact. There is an acute comminuted displaced intertrochanteric fracture of the left femur. The fracture is displaced approximately 1.8 cm. The fracture is angulated. No additional acute fractures are present. Proximal right femur is intact. IMPRESSION: Acute displaced comminuted intertrochanteric fracture of the left femur. ACT 112: Negative or not required by law. Electronically signed by: Gil Toscano M.D. 05/24/2024 4:07 PM Discharge Plan Visit Data Chief Complaint: Trauma Stated Complaint: fall ED Provider: Parish Wiggins Discharge Problem: Closed hip fracture, Fall, Clavicle fracture Patient Disposition: Admitted As Inpatient Discharge Instructions Interventions: ED Discharge Assessment Last Done: 05/24/24 20:15 Discharge Problem: Closed hip fracture Qualifiers: Encounter type: initial encounter Laterality: left Qualified Code(s): S72.002A - Fracture of unspecified part of neck of left femur, initial encounter for closed fracture Fall Qualifiers: Encounter type: initial encounter Qualified Code(s): W19.XXXA - Unspecified fall, initial encounter Clavicle fracture Qualifiers: Encounter type: initial encounter Clavicle location: unspecified part of clavicle Fracture type: closed Fracture alignment: displaced Laterality: left Q ualified Code(s): S42.002A - Fracture of unspecified part of left clavicle, initial encounter for closed fracture
[2024-05-24 15:49] LABS: Basophils # (auto) 0.06 K/uL (0.00-0.20); Basophils % (auto) 0.7 %; Eosinophils # (auto) 0.13 K/uL (0.00-0.50); Eosinophils % (auto) 1.5 %; Hematocrit (blood only) 43.1 % (37.0-47.0); Hemoglobin 14.6 g/dl (12.0-16.0); Immature Granulocytes # (auto) 0.09 K/uL (0.01-0.20); Lymphocytes # (auto) 1.78 K/uL (1.20-3.40); Lymphocytes % (auto) 19.9 %; Mean Corpuscular Hgb Conc 33.9 g/dL (32.0-36.0); Mean Corpuscular Volume 85.7 fL (80.0-100.0); Mean Platelet Volume 10.1 fL (9.4-12.4); Monocytes # (auto) 0.61 K/uL (0.11-0.59); Monocytes % (auto) 6.8 %; Neutrophils # (auto) 6.29 K/uL (1.40-6.50); Neutrophils % (auto) 70.1 %; Platelet Count 282 K/uL (130-400); RDW Coefficient of Variation 13.7 % (11.5-14.5); RDW Standard Deviation 42.7 fL (36.4-46.3); Red Blood Count 5.03 M/uL (4.20-5.40); White Blood Count 8.96 K/ul (4.8-10.8)
[2024-05-24] MEDS: MoRPHine SULFATE 4 MG/ML 1 ML CARP\\VIAL IV STA (15:51)
--- NOTE | 2024-05-24 16:00 | XRay Report ---
SINGLE VIEW CHEST CLINICAL HISTORY: Trauma. Atypical chest pain. FINDINGS: An AP, portable, supine chest radiograph is compared to study dated 04/24/2023. The heart is enlarged indenting atherosclerotic calcification of the thoracic aorta. The pulmonary vasculature is not congested. Chronic interstitial thickening is similar previous. There is bibasilar scarring/atele ctasis. No airspace consolidation or large pleural effusion is identified. No pneumothorax is seen. T he skeletal structures are osteopenic. There is a displaced oblique fracture through the mid to dista l shaft of the left clavicle. IMPRESSION: 1. Cardiomegaly with no acute cardiopulmonary abnormality identified. 2. Left clavicular fracture. ACT 112: Negative or not required by law. Electronically signed by: Junior Caceres M.D. 05/24/2024 3:58 PM
[2024-05-24 16:05] LABS: Albumin Globulin Ratio 1.8 (0.9-2); Albumin Level 3.9 gm/dl (3.4-5.0); BUN Creatinine Ratio 18.9 (10-20); Bilirubin,Total 0.5 mg/dl (0.2-1.0); Calcium 9.7 mg/dl (8.6-10.3); Creatinine Clr Calc Pharmacy 44.2 ml/min; Est GFR (African American) 70.5 ml/min; Est GFR (Non-African American) 60.8 ml/min; Globulin 2.2 gm/dl (2.5-4.0); Potassium 4.1 mmol/L (3.5-5.1); Total Protein 6.1 gm/dl (6.0-8.3)
--- NOTE | 2024-05-24 16:08 | XRay Report ---
XR hip LT 2V w pelvis CLINICAL HISTORY: Left hip pain following fall. COMPARISON: None FINDINGS: Sacroiliac joints and symphysis pubis are intact. There is an acute comminuted displaced i ntertrochanteric fracture of the left femur. The fracture is displaced approximately 1.8 cm. The frac ture is angulated. No additional acute fractures are present. Proximal right femur is intact. IMPRESSION: Acute displaced comminuted intertrochanteric fracture of the left femur. ACT 112: Negative or not required by law. Electronically signed by: Gil Toscano M.D. 05/24/2024 4:07 PM
[2024-05-24 16:11] LABS: Troponin I High Sensitivity 4.2 pg/ml (0-14)
--- NOTE | 2024-05-24 16:31 | CT Scan Report ---
CT SCAN OF THE CERVICAL SPINE CLINICAL HISTORY: Fall. COMPARISON STUDY: CT angiogram of the neck dated 05/22/2024. TECHNIQUE: CT scan of the cervical spine is performed from the skull base to the upper thoracic spine . Images are reviewed in the axial, sagittal, and coronal planes. IV contrast was not administered fo r this examination. A dose lowering technique was utilized adhering to the principles of ALARA. FINDINGS: Skeletal structures: The skeletal structures are osteopenic. There is no evidence of fracture or subl uxation involving the cervical spine. Vertebral body height and alignment are maintained. There is s traightening of the cervical lordosis. Anterior osteophytes are seen throughout. The odontoid process and lateral masses are intact. The atlantoaxial articulation is preserved nothing productive degener ative change. The spinous processes appear intact. There is moderate to advanced multilevel cervical spondylosis. Uncovertebral and facet arthropathy contribute to neural foraminal narrowing at several levels. There is a displaced oblique fracture through the mid to distal shaft of the left clavicle. Intervertebral discs: There is [id number] multilevel degenerative disc space narrowing, greates t at C5-C6. Central canal: Posterior disc osteophyte complexes at C4-C5 and C5-C6 may contribute to mild acquired compromise of the central canal. Soft tissues: The prevertebral and paraspinous soft tissues are within normal limits. There is athero sclerotic calcification of the carotid bulbs. There is hemorrhage around the left clavicular fracture . Calvarium: The visualized calvarium at the skull base appears intact. Brain parenchyma: Partially visualized brain parenchyma at the skull base is within normal limits. Sinuses and mastoids: The visualized paranasal sinuses are clear. The mastoid air cells are well pneu matized. Lung apices: Clear as visualized. IMPRESSION: 1. There is no evidence of fracture or subluxation involving the cervical spine. 2. Osteopenia and spondylotic change as above. 3. Left clavicular fracture. ACT 112: Negative or not required by law. Electronically signed by: Junior Caceres M.D. 05/24/2024 4:30 PM
--- NOTE | 2024-05-24 16:36 | CT Scan Report ---
CT OF THE HEAD WITHOUT CONTRAST CLINICAL HISTORY: Fall. COMPARISON STUDY: MRI of the brain May 22, 2024. Head CT May 23, 2024. CT DOSE: 1095.25 mGy.cm TECHNIQUE: Helical axial images of the head were obtained without IV contrast. Automated exposure con trol was utilized for the study. A dose lowering technique was utilized adhering to the principles o f ALARA. FINDINGS: No acute intracranial hemorrhage, midline shift or mass effect is present. The ventricular system is stable. Basal cisterns are patent. There are no intra-axial collections. Subtle small hypod ensities within the periventricular right frontal lobe and right basal ganglia are similar to head CT of May 23, 2024. Appearance of the brain is unchanged. 3.5 cm CSF attenuation focus within the rig ht cerebellopontine angle favors an arachnoid cyst. There are no calvarial fractures. IMPRESSION: 1. No acute intracranial findings. 2. No calvarial fracture. 3. Subtle small hypodensities within the periventricular right frontal lobe and right basal ganglia, similar to prior head CT. These likely correspond to known small evolving infarcts better depicted on prior MRI. ACT 112: Negative or not required by law. Electronically signed by: Gil Toscano M.D. 05/24/2024 4:35 PM
--- NOTE | 2024-05-24 18:28 | History & Physical Report ---
Date of Service May 24, 2024 Assessment & Plan (1) Fracture of left clavicle: (2) Hip fracture, left: Plan Pt is a 89yoF with PMHx significant for Alzheimer's dementia, hypertension, recent CVA presenting with a left hip fracture and left clavicular fracture after a fall at home. Pt was discharged home today after being hospitalized with an acute stroke. Mechanical Fall Ambulatory Dysfunction Left clavicular fracture Acute displaced comminuted intertrochanteric fracture of the left femur Pt discharged home today after acute CVA Per son, she was taking off her coat, dog was nearby and she became unsteady on her feet Head CT with no acute bleed, noting prior known stroke Cervical spine CT noting L clavicle fracture Hip pelvis xray noting acute displaced comminuted intertrochanteric fracture of the left femur Orthopedics consulted, appreciate recs Pain control NPO after midnight Follow pre-op EKG, echo from last admission reviewed. PT/OT once medically stable Will likely need acute rehab placement in discharge Continue to monitor Recent CVA- continue home Plavix, aspirin, statin prescribed on discharge Recent UTI- continue prescribed augmentin HTN- continue home lisinopril Dementia- continue home rivastigmine Diet: HH, NPO after midnight DVT prophylaxis: SCDs pre-op CODE STATUS: DNR/DNI per discussion with pt's son on admission Dispo: admit to med/surg with tele History of Present Illness Chief Complaint: fall Primary Care Provider: Alejo Coburn MD Pt is a 89yoF with PMHx significant for Alzheimer's dementia, hypertension, recent CVA presenting with a left hip fracture and left clavicular fracture after a fall at home. Pt was discharged home today after being hospitalized with an acute stroke. History obtained from phone call with pt's son as pt is pleasantly confused in the room, AAOx1 at the time of evaluation. He states that his mom was taking off her coat after getting home when she fell. He states she was able to get up the stairs without incident. However, after getting inside, while she was taking off her coat she fell, hitting her head against the wall and then her left side. He notes the dog was also running around and she cried out after falling. Pt notes that she is in pain. Received morphine doses in the ED. Allergies Allergy/AdvReac Type Severity Reaction Status Date / Time shellfish derived AdvReac Intermediate SORENESS Verified 05/21/24 18:01 AROUND URETHRA WITH RASH, BURINING WITH URINATION Home Medications Medication Instructions Recorded Confirmed Type rivastigmine 9.5 mg/24 hour 9.5 mg topical DAILY 05/21/24 05/24/24 History transdermal patch amoxicillin 875 mg-potassium 1 tab PO BID 2 days #4 tabs 05/24/24 05/24/24 Rx clavulanate 125 mg tablet aspirin 81 mg tablet,delayed 81 mg PO QAM #60 tabs 05/24/24 05/24/24 Rx release clopidogrel 75 mg tablet 75 mg PO QAM 19 days #19 tabs 05/24/24 05/24/24 Rx lisinopril 20 mg tablet 20 mg PO DAILY #30 tabs 05/24/24 05/24/24 Rx rosuvastatin 20 mg tablet 20 mg PO QAM #30 tabs 05/24/24 05/24/24 Rx Past Med/Surg History Problem List (Updated 05/24/24 @ 18:42 by Vern Baca MD) Fracture of left clavicle Hip fracture, left Acute CVA (cerebrovascular accident) Essential hypertension Alzheimer dementia (Acute) Stroke-like symptoms (Acute) UTI (urinary tract infection) (Acute) 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) Medical History Hypothyroid Social History Smoking Status: Never smoker Hx Alcohol Use: No Hx Substance Use: No Preferred Language: Vietnamese Communication Ability: Effective Search Engineer Required: No Feels Safe at Home: Yes Assistive Devices: None Review of Systems Review of Systems: All systems reviewed & are unremarkable except as noted in Subjective Physical Exam Physical Exam: General: Alert, orientedx1. No acute distress Psych: Appropriate mood and affect Neuro: AAOx1 HEENT: NC/AT CV: RRR Resp: Breath sounds clear bilaterally, no increased effort of breathing. Abdomen: Soft, nontender, Extremities: LLE flexed at the knee and externally rotated, tender to palpation over left hip Results & Data Results & Data Vital Signs (Past 12 Hours) Vital Signs Temp Pulse Pulse Resp BP BP Pulse Ox 05/24/24 15:40 60 05/24/24 15:25 05/24/24 15:25 36.6 C 62 18 101/84 95 05/24/24 15:14 36.6 C 60 18 190/83 H 95 05/24/24 15:14 36.6 C 56 L 18 190/83 H 95 O2 Del Method 05/24/24 15:40 05/24/24 15:25 Room Air 05/24/24 15:25 Room Air 05/24/24 15:14 Room Air 05/24/24 15:14 Room Air Diagnostic Findings Cervical Spine CT 05/24/24 15:22 CT SCAN OF THE CERVICAL SPINE CLINICAL HISTORY: Fall. COMPARISON STUDY: CT angiogram of the neck dated 05/22/2024. TECHNIQUE: CT scan of the cervical spine is performed from the skull base to the upper thoracic spine. Images are reviewed in the axial, sagittal, and coronal planes. IV contrast was not administered for this examination. A dose lowering technique was utilized adhering to the principles of ALARA. FINDINGS: Skeletal structures: The skeletal structures are osteopenic. There is no evidence of fracture or subluxation involving the cervical spine. Vertebral body height and alignment are maintained. There is straightening of the cervical lordosis. Anterior osteophytes are seen throughout. The odontoid process and lateral masses are intact. The atlantoaxial articulation is preserved nothing productive degenerative change. The spinous processes appear intact. There is moderate to advanced multilevel cervical spondylosis. Uncovertebral and facet arthropathy contribute to neural foraminal narrowing at several levels. There is a displaced oblique fracture through the mid to distal shaft of the left clavicle. Intervertebral discs: There is [id number] multilevel degenerative disc space narrowing, greatest at C5-C6. Central canal: Posterior disc osteophyte complexes at C4-C5 and C5-C6 may contribute to mild acquired compromise of the central canal. Soft tissues: The prevertebral and paraspinous soft tissues are within normal limits. There is atherosclerotic calcification of the carotid bulbs. There is hemorrhage around the left clavicular fracture. Calvarium: The visualized calvarium at the skull base appears intact. Brain parenchyma: Partially visualized brain parenchyma at the skull base is within normal limits. Sinuses and mastoids: The visualized paranasal sinuses are clear. The mastoid air cells are well pneumatized. Lung apices: Clear as visualized. IMPRESSION: 1. There is no evidence of fracture or subluxation involving the cervical spine. 2. Osteopenia and spondylotic change as above. 3. Left clavicular fracture. ACT 112: Negative or not required by law. Electronically signed by: Junior Caceres M.D. 05/24/2024 4:30 PM Chest X-Ray 05/24/24 15:22 SINGLE VIEW CHEST CLINICAL HISTORY: Trauma. Atypical chest pain. FINDINGS: An AP, portable, supine chest radiograph is compared to study dated 04/24/2023. The heart is enlarged indenting atherosclerotic calcification of the thoracic aorta. The pulmonary vasculature is not congested. Chronic interstitial thickening is similar previous. There is bibasilar scarring/atelectasis. No airspace consolidation or large pleural effusion is identified. No pneumothorax is seen. The skeletal structures are osteopenic. There is a displaced oblique fracture through the mid to distal shaft of the left clavicle. IMPRESSION: 1. Cardiomegaly with no acute cardiopulmonary abnormality identified. 2. Left clavicular fracture. ACT 112: Negative or not required by law. Electronically signed by: Junior Caceres M.D. 05/24/2024 3:[address] 05/24/24 15:22 CT OF THE HEAD WITHOUT CONTRAST CLINICAL HISTORY: Fall. COMPARISON STUDY: MRI of the brain May 22, 2024. Head CT May 23, 2024. CT DOSE: 1095.25 mGy.cm TECHNIQUE: Helical axial images of the head were obtained without IV contrast. Automated exposure control was utilized for the study. A dose lowering technique was utilized adhering to the principles of ALARA. FINDINGS: No acute intracranial hemorrhage, midline shift or mass effect is present. The ventricular system is stable. Basal cisterns are patent. There are no intra-axial collections. Subtle small hypodensities within the periventricular right frontal lobe and right basal ganglia are similar to head CT of May 23, 2024. Appearance of the brain is unchanged. 3.5 cm CSF attenuation focus within the right cerebellopontine angle favors an arachnoid cyst. There are no calvarial fractures. IMPRESSION: 1. No acute intracranial findings. 2. No calvarial fracture. 3. Subtle small hypodensities within the periventricular right frontal lobe and right basal ganglia, similar to prior head CT. These likely correspond to known small evolving infarcts better depicted on prior MRI. ACT 112: Negative or not required by law. Electronically signed by: Gil Toscano M.D. 05/24/2024 4:35 PM Hip/Pelvis X-Ray 05/24/24 15:22 XR hip LT 2V w pelvis CLINICAL HISTORY: Left hip pain following fall. COMPARISON: None FINDINGS: Sacroiliac joints and symphysis pubis are intact. There is an acute comminuted displaced intertrochanteric fracture of the left femur. The fracture is displaced approximately 1.8 cm. The fracture is angulated. No additional acute fractures are present. Proximal right femur is intact. IMPRESSION: Acute displaced comminuted intertrochanteric fracture of the left femur. ACT 112: Negative or not required by law. Electronically signed by: Gil Toscano M.D. 05/24/2024 4:07 PM
--- NOTE | 2024-05-24 18:40 | Orthopedic Consultation ---
Date of Consultation May 24, 2024 Assessment & Plan (1) Hip fracture, left: The patient is a 78 year old female who sustained a left hip fracture from a ground level fall. The patients treatment options of conservative versus surgical intervention were discussed. Since the patient was an ambulatory prior to the injury and to avoid the risks of bed sores, pulmonary complications, and to give the best chance for ambulation, I recommended surgery. The risks of surgery, which include but are not limited to: bleeding, infection, re-operation, damage to nerves and arteries, continued pain, failure of the hardware, mal-union, non-union, DVT, and . The patient has a 20-30% morbidity associated with hip fracture for up to 1 year following a hip fracture. Placed on the add-on schedule for [Friday as they have been taking Plavix and ASA. Will proceed if medically stable and POA agrees. Patient may eat now from an ortho standpoint, but will be NPO after midnight 05/25/24 if proceeding with surgery 05/26/24. The patient will be NWB. TEDs and foot pumps to RLE. Antibiotics & TXA substation design draftsperson to OR. Hold Plavix Continue care per primary service. Present on Admission?: Yes (2) Fracture of left clavicle: Will treat conservatively for now Sling for comfort RICE Present on Admission?: Yes History of Present Illness Reason for Consultation: Left hip fracture Left Clavicle fracture Requesting Physician: Stuart Baca MD Attending Physician: Terrie Bradley MD History of Present Illness 78 yo female who was discharged home from hospital earlier today for recent CVA and had a ground level fall, injuring her left hip and left shoulder. She is on Plavix and ASA. She is complaining of left shoulder pain. She is a poor historian. She has been admitted by the hospitalist service. I have been consulted for further evaluation and treatment of the shoulder and hip. Allergies Allergy/AdvReac Type Severity Reaction Status Date / Time shellfish derived AdvReac Intermediate SORENESS Verified 05/21/24 18:01 AROUND URETHRA WITH RASH, BURINING WITH URINATION Home Medications Medication Instructions Recorded Confirmed Type rivastigmine 9.5 mg/24 hour 9.5 mg topical DAILY 05/21/24 05/24/24 History transdermal patch amoxicillin 875 mg-potassium 1 tab PO BID 2 days #4 tabs 05/24/24 05/24/24 Rx clavulanate 125 mg tablet aspirin 81 mg tablet,delayed 81 mg PO QAM #60 tabs 05/24/24 05/24/24 Rx release clopidogrel 75 mg tablet 75 mg PO QAM 19 days #19 tabs 05/24/24 05/24/24 Rx lisinopril 20 mg tablet 20 mg PO DAILY #30 tabs 05/24/24 05/24/24 Rx rosuvastatin 20 mg tablet 20 mg PO QAM #30 tabs 05/24/24 05/24/24 Rx Patient History Medical History Hypothyroid Social History Smoking Status: Never smoker Hx Alcohol Use: No Hx Substance Use: No Preferred Language: Azeri Communication Ability: Effective 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 2+ DP pulse. Calf soft and non-tender.Leg is shortened and externally rotated. LUE: Sensation to light touch intact distally. Has difficulty following all commands. Motor to Median, radial, ulnar, Musculocutaneous nerves are intact. + tenderness to palpation over the mid-clavicle. + swelling and bruising over mid clavicle Results & Data Vital Signs (Past 12 Hours) Vital Signs Temp Pulse Pulse Resp BP BP Pulse Ox 05/24/24 18:03 73 22 94 05/24/24 18:00 145/92 H 05/24/24 18:00 145/92 H 05/24/24 17:57 75 19 94 05/24/24 17:39 72 22 93 05/24/24 17:30 174/90 H 05/24/24 17:30 174/90 H 05/24/24 17:24 70 21 93 05/24/24 17:00 172/86 H 05/24/24 17:00 172/86 H 05/24/24 17:00 172/86 H 05/24/24 17:00 68 21 92 05/24/24 16:33 66 21 95 05/24/24 16:30 165/86 H 05/24/24 16:30 165/86 H 05/24/24 16:03 67 20 90 05/24/24 16:00 67 20 89 L 05/24/24 16:00 144/91 H 05/24/24 16:00 144/91 H 05/24/24 15:40 60 05/24/24 15:36 57 L 21 96 05/24/24 15:31 193/104 H 05/24/24 15:25 05/24/24 15:25 36.6 C 62 18 101/84 95 05/24/24 15:21 57 L 23 96 05/24/24 15:18 190/83 H 05/24/24 15:18 190/83 H 05/24/24 15:14 36.6 C 60 18 190/83 H 95 05/24/24 15:14 36.6 C 56 L 18 190/83 H 95 O2 Del Method 05/24/24 18:03 05/24/24 18:00 05/24/24 18:00 05/24/24 17:57 05/24/24 17:39 05/24/24 17:30 05/24/24 17:30 05/24/24 17:24 05/24/24 17:00 05/24/24 17:00 05/24/24 17:00 05/24/24 17:00 05/24/24 16:33 05/24/24 16:30 05/24/24 16:30 05/24/24 16:03 05/24/24 16:00 05/24/24 16:00 05/24/24 16:00 05/24/24 15:40 05/24/24 15:36 05/24/24 15:31 05/24/24 15:25 Room Air 05/24/24 15:25 Room Air 05/24/24 15:21 05/24/24 15:18 05/24/24 15:18 05/24/24 15:14 Room Air 05/24/24 15:14 Room Air Laboratory Results Laboratory Results WBC 8.96 K/ul (4.8-10.8) 05/24/24 15:20 RBC 5.03 M/uL (4.20-5.40) 05/24/24 15:20 Hgb 14.6 g/dl (12.0-16.0) 05/24/24 15:20 Hct 43.1 % (37.0-47.0) 05/24/24 15:20 MCV 85.7 fL (80.0-100.0) 05/24/24 15:20 MCH 29.0 pg (25.0-34.0) 05/24/24 15:20 MCHC 33.9 g/dL (32.0-36.0) 05/24/24 15:20 RDW Std Deviation 42.7 fL (36.4-46.3) 05/24/24 15:20 RDW Coeff of Allison 13.7 % (11.5-14.5) 05/24/24 15:20 Plt Count 282 K/uL (130-400) 05/24/24 15:20 MPV 10.1 fL (9.4-12.4) 05/24/24 15:20 Immature Gran % (Auto) 1.0 % 05/24/24 15:20 Neut % (Auto) 70.1 % 05/24/24 15:20 Lymph % (Auto) 19.9 % 05/24/24 15:20 [place] % (Auto) 6.8 % 05/24/24 15:20 Eos % (Auto) 1.5 % 05/24/24 15:20 Baso % (Auto) 0.7 % 05/24/24 15:20 Neut # (Auto) 6.29 K/uL (1.40-6.50) 05/24/24 15:20 Lymph # (Auto) 1.78 K/uL (1.20-3.40) 05/24/24 15:20 [place] # (Auto) 0.61 K/uL (0.11-0.59) H 05/24/24 15:20 Eos # (Auto) 0.13 K/uL (0.00-0.50) 05/24/24 15:20 Baso # (Auto) 0.06 K/uL (0.00-0.20) 05/24/24 15:20 Immature Gran # (Auto) 0.09 K/uL (0.01-0.20) 05/24/24 15:20 Sodium 138 mmol/L (136-145) 05/24/24 15:20 Potassium 4.1 mmol/L (3.5-5.1) 05/24/24 15:20 Chloride 107 mmol/L (98-107) 05/24/24 15:20 Carbon Dioxide 24 mmol/L (21-32) 05/24/24 15:20 Anion Gap 7 (3-11) 05/24/24 15:20 BUN 17 mg/dl (6-23) 05/24/24 15:20 Creatinine 0.90 mg/dl (0.6-1.2) 05/24/24 15:20 Est Cr Clr Drug Dosing 44.2 ml/min 05/24/24 15:20 Est GFR ( Amer) 70.5 ml/min 05/24/24 15:20 Est GFR (Non-Af Amer) 60.8 ml/min 05/24/24 15:20 BUN/Creatinine Ratio 18.9 (10-20) 05/24/24 15:20 Glucose 157 mg/dl (70-99(Fasting)) H 05/24/24 15:20 Calcium 9.7 mg/dl (8.6-10.3) 05/24/24 15:20 Total Bilirubin 0.5 mg/dl (0.2-1.0) 05/24/24 15:20 AST 30 U/L (13-39) 05/24/24 15:20 ALT 24 U/L (7-52) 05/24/24 15:20 Alkaline Phosphatase 78 U/L (34-104) 05/24/24 15:20 Troponin I High Sens 4.2 pg/ml (0-14) 05/24/24 15:20 Total Protein 6.1 gm/dl (6.0-8.3) 05/24/24 15:20 Albumin 3.9 gm/dl (3.4-5.0) 05/24/24 15:20 Globulin 2.2 gm/dl (2.5-4.0) L 05/24/24 15:20 Albumin/Globulin Ratio 1.8 (0.9-2) 05/24/24 15:20 Lipase 40 U/L (11-82) 05/24/24 15:[address] 05/24/24 15:22 CT SCAN OF THE CERVICAL SPINE CLINICAL HISTORY: Fall. COMPARISON STUDY: CT angiogram of the neck dated 05/22/2024. TECHNIQUE: CT scan of the cervical spine is performed from the skull base to the upper thoracic spine. Images are reviewed in the axial, sagittal, and coronal planes. IV contrast was not administered for this examination. A dose lowering technique was utilized adhering to the principles of ALARA. FINDINGS: Skeletal structures: The skeletal structures are osteopenic. There is no evidence of fracture or subluxation involving the cervical spine. Vertebral body height and alignment are maintained. There is straightening of the cervical lordosis. Anterior osteophytes are seen throughout. The odontoid process and lateral masses are intact. The atlantoaxial articulation is preserved nothing productive degenerative change. The spinous processes appear intact. There is moderate to advanced multilevel cervical spondylosis. Uncovertebral and facet arthropathy contribute to neural foraminal narrowing at several levels. There is a displaced oblique fracture through the mid to distal shaft of the left clavicle. Intervertebral discs: There is [id number] multilevel degenerative disc space narrowing, greatest at C5-C6. Central canal: Posterior disc osteophyte complexes at C4-C5 and C5-C6 may contribute to mild acquired compromise of the central canal. Soft tissues: The prevertebral and paraspinous soft tissues are within normal limits. There is atherosclerotic calcification of the carotid bulbs. There is hemorrhage around the left clavicular fracture. Calvarium: The visualized calvarium at the skull base appears intact. Brain parenchyma: Partially visualized brain parenchyma at the skull base is within normal limits. Sinuses and mastoids: The visualized paranasal sinuses are clear. The mastoid air cells are well pneumatized. Lung apices: Clear as visualized. IMPRESSION: 1. There is no evidence of fracture or subluxation involving the cervical spine. 2. Osteopenia and spondylotic change as above. 3. Left clavicular fracture. ACT 112: Negative or not required by law. Electronically signed by: Junior Caceres M.D. 05/24/2024 4:30 PM Chest X-Ray 05/24/24 15:22 SINGLE VIEW CHEST CLINICAL HISTORY: Trauma. Atypical chest pain. FINDINGS: An AP, portable, supine chest radiograph is compared to study dated 04/24/2023. The heart is enlarged indenting atherosclerotic calcification of the thoracic aorta. The pulmonary vasculature is not congested. Chronic interstitial thickening is similar previous. There is bibasilar scarring/atelectasis. No airspace consolidation or large pleural effusion is identified. No pneumothorax is seen. The skeletal structures are osteopenic. There is a displaced oblique fracture through the mid to distal shaft of the left clavicle. IMPRESSION: 1. Cardiomegaly with no acute cardiopulmonary abnormality identified. 2. Left clavicular fracture. ACT 112: Negative or not required by law. Electronically signed by: Junior Caceres M.D. 05/24/2024 3:[address] 05/24/24 15:22 CT OF THE HEAD WITHOUT CONTRAST CLINICAL HISTORY: Fall. COMPARISON STUDY: MRI of the brain May 22, 2024. Head CT May 23, 2024. CT DOSE: 1095.25 mGy.cm TECHNIQUE: Helical axial images of the head were obtained without IV contrast. Automated exposure control was utilized for the study. A dose lowering technique was utilized adhering to the principles of ALARA. FINDINGS: No acute intracranial hemorrhage, midline shift or mass effect is present. The ventricular system is stable. Basal cisterns are patent. There are no intra-axial collections. Subtle small hypodensities within the per iventricular right frontal lobe and right basal ganglia are similar to head CT of May 23, 2024. Appearance of the brain is unchanged. 3.5 cm CSF attenuation focus within the right cerebellopontine angle favors an arachnoid cyst. There are no calvarial fractures. IMPRESSION: 1. No acute intracranial findings. 2. No calvarial fracture. 3. Subtle small hypodensities within the periventricular right frontal lobe and right basal ganglia, similar to prior head CT. These likely correspond to known small evolving infarcts better depicted on prior MRI. ACT 112: Negative or not required by law. Electronically signed by: Gil Toscano M.D. 05/24/2024 4:35 PM Hip/Pelvis X-Ray 05/24/24 15:22 XR hip LT 2V w pelvis CLINICAL HISTORY: Left hip pain following fall. COMPARISON: None FINDINGS: Sacroiliac joints and symphysis pubis are intact. There is an acute comminuted displaced intertrochanteric fracture of the left femur. The fracture is displaced approximately 1.8 cm. The fracture is angulated. No additional acute fractures are present. Proximal right femur is intact. IMPRESSION: Acute displaced comminuted intertrochanteric fracture of the left femur. ACT 112: Negative or not required by law. Electronically signed by: Gil Toscano M.D. 05/24/2024 4:07 PM
[2024-05-24] MEDS ORDERED: ACETAMINOPHEN 1,000 MG/100 ML VIAL IV PRN (20:46)
[2024-05-24] MEDS ORDERED: ONDANSETRON INJ 2 MG/ML 2 ML VIAL IV PRN (20:46)
[2024-05-24] MEDS ORDERED: HYDROmorphone INJ 0.5 MG/0.5 ML SYR IV PRN (20:46)
[2024-05-24] MEDS: AMOXICILLIN/CLAVULANATE 875 MG TAB PO SCH (22:02)
--- OUTSIDE RECORDS SUMMARY | 2024-05-25 00:07 | External Medical Summary | Summary of Care ---
Author Name Unknown Organization [facility] Address [address] [place] [address] Phone [phone] Care Team Providers Care Director Of Conservation Name Role Phone Alejo Coburn MD Primary Care Provider [phone] Reason for Visit * Reason Onset Date Comments Health Maintenance 05/24/2024 Encounter Details Date Type Department Care Team (Late st Contact Info) Description 05/24/2024 Telephone Family Practice [facility] [address] [place] [phone] Alejo Coburn MD [address] [place] [id number] Health Maintenance Allergies Active Allergy Reactions Criticality Noted Date Comments Amoxicillin 07/23/2016 Aspirin 10/31/1999 GI upset Donepezil Unknown 01/13/2024 Lactose Intolerance 10/31/1999 Shellfish 06/24/2003 Hives documented as of this encounter (statuses as of 05/24/2024) Medications Medication Sig Dispensed Refills Start Date End Date Status Lisinopril 10 MG Oral Tablet (Prinivil) Take 1 Tablet by mouth in the morning. 90 Tablet 3 11/12/2023 Active Rivastigmine 9.5 MG/24HR Transdermal Patch 24 Hour (Exelon) Place 1 Patch over 24 hours topically on the skin in the morning. 30 Patch 12 03/30/2024 Active Aspirin 81 MG Oral Tablet Delayed Release (Aspirin 81) Take 1 tablet by mouth daily in the morning 60 Tablet 05/24/2024 Active Clopidogrel Bisulfate 75 MG Oral Tablet (pLAVix) Take 1 tablet by mouthy daily in the morning for 19 days 19 Tablet 05/24/2024 Active Lisinopril 20 MG Oral Tablet (Prinivil) Take 1 tablet by mouth daily 30 Tablet 05/24/2024 Active Rosuvastatin Calcium 20 MG Oral Tablet (Crestor) Take 1 tablet by mouth daily in the morning 30 Tablet 05/24/2024 Active Amoxicillin-Pot Clavulanate 875-125 MG Oral Tablet (Augmentin) take 1 tablet orally twice a day for 2 days 4 Tablet 05/24/2024 Active Hospital, Clinic, or Other Facility Administered Medication Ordered Dose Route Frequency Start Date End Date Status vitamin b-12 (Cyanocobalamin) inj 1,000 mcgIndications:Vitamin B12 deficiency 1000 mcg IM [id number] 11/12/2023 10/13/2024 Active documented as of this encounter (statuses as of 05/24/2024) Active Problems Problem Noted Date Diagnosed Date Vitamin B12 deficiency 08/12/2023 Mild dementia 05/31/2023 Overweight (BMI 25.0-29.9) 05/31/2023 HTN, goal below 130/80 04/30/2023 Senile osteoporosis 08/01/2017 Dyslipidemia 10/04/2009 Overview: Per Lipid Taxonomy. Subclinical hypothyroidism 07/03/1998 documented as of this encounter (statuses as of 05/24/2024) Resolved Problems Problem Noted Date Diagnosed Date Resolved Date Encounter for examination fo r normal comparison and control in clinical research program 02/15/2019 05/22/2020 Overview: DO NOT DELETE [facility] DETECT Study: Project # [id number], Field Representatives Director: Roscoe Baldwin, PhD. SUMMARY: Goal: Establish test [...] contact study staff at ; after hours Field Representatives Director via the [facility] digital pre press operator . Please contact study team before resolving/deleting from patients problem list. Study phone number: [phone]. Diagnosis changed due to Research Module. Go to Snapshot for study details. Encounter for examination fo r normal comparison and control in clinical research program 02/15/2019 06/20/2022 Overview: DO NOT DELETE - [facility] Study: Project # [id number], Field Representatives Director: Jesus Tolbert, MS, MPH. SUMMARY: Goal: Establish [...] contact study staff at ; after hours Field Representatives Director via the [facility] digital pre press operator . - Please contact study team before resolving/deleting from patients problem list. Study phone number: [phone]. Diagnosis changed due to Research Module. Go [...] as of this encounter (statuses as of 05/24/2024) Immunizations Name Administration Dates Next Due COVID-19 [...] encounter Miscellaneous Notes * Telephone Encounter - Laney Arceo LPN - 05/24/2024 10:34 AM EDT Care Gaps Comprehensive Care Outreach Last Office/Telemedicine Visit: 02/18/2024 (in office), Visit date not found (telemedicine) Next Office Visit: 08/23/2024 Hemoglobin AIC Results: Lab Results Component Value Date/Time HEMOGLOBIN A1C - [facility] 5.4 03/10/2019 03:54 PM HEMOGLOBIN A1C - [facility] 5.6 10/31/1999 09:14 PM BP Readings from Last 1 Encounters: 03/30/24 134/82 Reviewed Health Maintenance below: Health Maintenance Topic Date Due Albumin/Creatinine Ratio Never done Hepatitis C Screening Never done Zoster Vaccines (2 of 3) 07/12/2011 Depression Screening 08/26/2020 *BISPHONATE OR OTHER ACCEPTABLE MEDICATION NEEDED FOR OSTEOPOROSIS (REFER TO SMARTSET #1146) Never done DXA Scan 05/23/2022 COVID-19 Vaccine ( season) 2023 GFR 04/30/2024 Dexa Labs already ordered add urine Inpatient? Care Gap Outreach Action Taken: Unable to reach documented in this encounter Plan of Treatment Upcoming Encounters Date Type Department Care Team (Late st Contact Info) Description 08/23/2024 11:40 AM EST Office Visit Family Practice [facility] [address] [phone] Alejo Coburn MD [address] [place] [address] Health Maintenance Due Date Last Done Comments Albumin/Creatinine Ratio 1963 Hepatitis C Screening 1963 Zoster Vaccines (2 of 3) 07/12/2011 05/17/2011 Depression Screening 08/26/2020 08/26/2019 *BISPHONATE OR OTHER ACCEPTABLE MEDICATION NEEDED FOR OSTEOPOROSIS (REFER TO SMARTSET #1146) 01/11/2022 DXA Scan 05/23/2022 05/23/2020, 05/20, 05/02/2014, Additional history exists COVID-19 Vaccine ( season) 2023 01/16/2021 GFR 04/30/2024 04/30/2023, 12/19, 06/14/2016, Additional history exists Influenza Vaccine (FLU shot) (#1) 2024 08/12/2023, 08/26/2019, 08/18/2013 Mammogram 03/22/2025 03/22/2024, 06/12/2023, 05/31/2015, Additional history exists DTaP,Tdap,and Td Vaccines (3 - Td or Tdap) 03/10/2029 03/10/2019, 04/07/2008 VITAMIN D LEVEL ONCE IN A LIFETIME-USE SMARTSET# [id number] Completed 05/16/2014, 05/01/2010 Pneumococcal Vaccine: 65+ Years Completed 02/27/2016, 11/09/2010 HPV (Gardasil) Vaccine Aged Out No lo nger eligible based on patient's age to complete this topic Hepatitis B Vaccine Aged Out No longe r eligible based on patient's age to complete this topic MENINGOCOCCAL (MENACTRA/MENVEO) Aged Out No longer eligible based on patient's age to complete this topic documented as of this encounter Medical Devices Not on filedocumented as of this encounter Care Teams Director Of Conservation Relationship Specialty Start Date End Date Alejo Coburn MD [address] [place] [id number] PCP - General Family Medicine 08/01/17 documented as of this encounter
[2024-05-25 06:38] LABS: Calcium 9.2 mg/dl (8.6-10.3); Creatinine Clr Calc Pharmacy 48.4 ml/min; Est GFR (African American) 81.3 ml/min; Est GFR (Non-African American) 70.1 ml/min; Potassium 4.3 mmol/L (3.5-5.1)
[2024-05-25 06:39] LABS: Hematocrit (blood only) 42.1 % (37.0-47.0); Hemoglobin 14.3 g/dl (12.0-16.0); Mean Corpuscular Hemoglobin 28.8 pg (25.0-34.0); Mean Corpuscular Volume 84.9 fL (80.0-100.0); Mean Platelet Volume 10.2 fL (9.4-12.4); Platelet Count 305 K/uL (130-400); RDW Coefficient of Variation 13.6 % (11.5-14.5); RDW Standard Deviation 42.4 fL (36.4-46.3); Red Blood Count 4.96 M/uL (4.20-5.40); White Blood Count 16.45 K/ul (4.8-10.8)
[2024-05-25] MEDS: ROSUVASTATIN CALCIUM 20 MG TAB PO SCH (08:37)
[2024-05-25] MEDS: lisinopril 20 MG TAB PO SCH (08:37)
[2024-05-25] MEDS: ASPIRIN 81 MG ECTAB PO SCH (08:37)
--- NOTE | 2024-05-25 09:25 | Hospitalist Progress Note ---
Date of Service May 25, 2024 Assessment & Plan (1) Fracture of left clavicle: (2) Hip fracture, left: Plan Pt is a 78yoF with PMHx significant for Alzheimer's dementia, hypertension, recent CVA presenting with a left hip fracture and left clavicular fracture after a fall at home. Patient was admitted from May 21 to May 24, 2024 for acute CVA. She had mild left arm weakness and left facial droop. She was started on aspirin and Plavix as recommended by neurology and was discharged home with her son. After returning home, patient had a mechanical fall which led to displaced comminuted intertrochanteric fracture of left femur and left clavicle fracture. Mechanical Fall Left clavicular fracture Acute displaced comminuted intertrochanteric fracture of the left femur Recent admission with acute CVA from May 21 to May 24; discharged home. Presents with mechanical fall Head CT with no acute bleed, noting prior known stroke Cervical spine CT noting L clavicle fracture Hip pelvis xray noting acute displaced comminuted intertrochanteric fracture of the left femur Plan for left trochanteric nail by orthopedic tomorrow. Will need PT OT eval after surgery Continue pain control Recent CVA- Brain MRI on May 22 showed punctate restricted diffusion in the right periventricular white matter and basal ganglia compatible with embolic stroke Patient was discharged on aspirin and Plavix. Admitting team discussed with neurology; Plavix is currently on hold. To be resumed after surgery after discussion with palpitation. Continue on aspirin and statin Recent UTI- Urine culture positive for E. coli on May 21; completing course of Augmentin HTN- Lisinopril on hold pre-op. resume after surgery. Dementia- continue home rivastigmine Diet: NPO for surgery DVT prophylaxis: SCDs pre-op CODE STATUS: DNR/DNI per discussion with pt's son on admission Dispo: admit to med/surg with tele I updated her son at bedside. Answer questions/queries Time spent evaluating patient, direct bedside care, chart review, placing orders, interpretation of diagnostic studies, discussion with consultants, patient, and family members, as well as other required patient management activities is 50 minutes Please note the above document was generated using voice recognition software. It may contain grammatical, syntax or spelling errors. Any formal questions or concerns about the content, text or information contained within the body of this dictation should be directly addressed to the provider for clarification Admission and Anticipated Discharge Date Admission Date: May 24, 2024 Subjective Patient seen and examined at bedside; not in distress Pain well-controlled on current regimen No significant events overnight Review of Systems Review of Systems: All systems reviewed & are unremarkable except as noted in Subjective Physical Exam Physical Exam: Constitutional: Alert, oriented to self. Not in distress Respiratory: Bilateral vesicular breath sounds Cardiovascular: RRR, no murmur, no edema Vessels: no JVD or carotid bruit Chest: normal inspection of chest Abdomen: normal bowel sounds, soft, nontender, no hepatosplenomegaly Musculoskeletal: Left leg externally rotated; tenderness to palpation of left hip. Neurologic: PERRL, EOMI, accommodation nl, Weakness on left arm of 4/5, mild facial droop on left side Results & Data Results & Data Vital Signs (Past 12 Hours) Vital Signs Temp Pulse Pulse Resp BP Pulse Ox O2 Del Method 05/25/24 08:23 36.7 C 88 17 145/88 H 90 Room Air 05/25/24 07:13 94 H 05/25/24 02:28 36.5 C 97 H 16 153/88 H 93 Room Air 05/25/24 00:00 91 H 05/24/24 22:47 36.7 C 90 16 156/85 H 93 Room Air
--- NOTE | 2024-05-25 10:09 | Electrocardiogram Report ---
Test Reason : Blood Pressure : */* mmHG Vent. Rate : 68 BPM Atrial Rate : 68 BPM P-R Int : 158 ms QRS Dur : 138 ms QT Int : 456 ms P-R-T Axes : 59 -81 69 degrees QTcB Int : 484 ms Normal sinus rhythm Right bundle branch block Left anterior fascicular block Bifascicular block Minimal voltage criteria for LVH, may be normal variant Abnormal ECG Confirmed by Willy De Santiago ([id number]) on 05/25/2024 10:08:46 AM Referred By: REFERRED SELF Confirmed By: Willy De Santiago
--- NOTE | 2024-05-25 14:31 | Orthopedic Progress Note ---
Date of Service May 25, 2024 Assessment & Plan (1) Hip fracture, left: Plan: Discussed findings with family. She is scheduled for ORIF of her left hip with Dr. Baca on Friday. The patients treatment options of conservative versus surgical intervention were discussed. Since the patient was an ambulatory prior to the injury and to avoid the risks of bed sores, pulmonary complications, and to give the best chance for ambulation, I recommended surgery. The risks of surgery, which include but are not limited to: bleeding, infection, re-operation, damage to nerves and arteries, continued pain, failure of the hardware, mal-union, non-union, DVT, and . The patient has a 20-30% morbidity associated with hip fracture for up to 1 year following a hip fracture. Placed on the add-on schedule for [Friday as they have been taking Plavix and ASA. Will proceed if medically stable and POA agrees. Patient may eat now from an ortho standpoint, but will be NPO after midnight 05/25/24 if proceeding with surgery 05/26/24. The patient will be NWB. TEDs and foot pumps to RLE. Antibiotics & TXA home health occupational therapist to OR. Hold Plavix Informed consent obtained over the phone from her son Gucci Romo. Consent on chart. Continue care per primary service. (2) Fracture of left clavicle: Plan: Will treat conservatively for now Sling for comfort RICE Admission and Anticipated Discharge Date Admission Date: May 24, 2024 Supervising Physician Co-Signing Physician Notes I saw and examined the patient and agree with the above findings and plan of radha cordoba, developed and discussed with my PA. Subjective Patient seen and examined at bedside; not in distress Pain well-controlled on current regimen No significant events overnight Physical Exam Musculoskeletal: Left shoulder exam: Ecchymosis in the top of her left shoulder. Point tender with palpation of the midshaft of the clavicle. Tolerates gentle passive and active motion of the shoulder, elbow and wrist and fingers. No distal edema. Distal pulses are 1+. Sensation seems to be intact. She is able to actively move her fingers wrist and elbow without discomfort. Movement of the shoulder does cause discomfort in her left clavicle area. Skin is healthy and intact. Exam of her left leg. Her left leg is shortened and externally rotated. She has no tenderness over the left knee. There is a previous incision healed across the front of her left knee. Calf is supple and nontender. She has full active ankle range of motion. Distal pulses are 1+. Sensation seems to be normal. She is able to wiggle her toes. Skin is intact. Mildly tender with palpation and with movement of the left hip although not much attempted. She is nontender with palpation around her left hip. There is no ecchymosis noted today. Results & Data Vital Signs (Past 12 Hours) Vital Signs Temp Pulse Pulse Resp BP Pulse Ox O2 Del Method 05/25/24 11:35 36.7 C 101 H 17 128/76 92 Room Air 05/25/24 08:40 Room Air 05/25/24 08:23 36.7 C 88 17 145/88 H 90 Room Air 05/25/24 07:13 94 H Laboratory Results 05/25/24 05/24/24 Range/Units 05:40 15:20 WBC 16.45 H 8.96 (4.8-10.8) K/ul RBC 4.96 5.03 (4.20-5.40) M/uL Hgb 14.3 14.6 (12.0-16.0) g/dl Hct 42.1 43.1 (37.0-47.0) % MCV 84.9 85.7 (80.0-100.0) fL MCH 28.8 29.0 (25.0-34.0) pg MCHC 34.0 33.9 (32.0-36.0) g/dL RDW Std Deviation 42.4 42.7 (36.4-46.3) fL RDW Coeff of Allison 13.6 13.7 (11.5-14.5) % Plt Count 305 282 (130-400) K/uL MPV 10.2 10.1 (9.4-12.4) fL Immature Gran % (Auto) 1.0 % Neut % (Auto) 70.1 % Lymph % (Auto) 19.9 % Dane % (Auto) 6.8 % Eos % (Auto) 1.5 % Baso % (Auto) 0.7 % Neut # (Auto) 6.29 (1.40-6.50) K/uL Lymph # (Auto) 1.78 (1.20-3.40) K/uL Dane # (Auto) 0.61 H (0.11-0.59) K/uL Eos # (Auto) 0.13 (0.00-0.50) K/uL Baso # (Auto) 0.06 (0.00-0.20) K/uL Immature Gran # (Auto) 0.09 (0.01-0.20) K/uL Sodium 139 138 (136-145) mmol/L Potassium 4.3 4.1 (3.5-5.1) mmol/L Chloride 107 107 (98-107) mmol/L Carbon Dioxide 23 24 (21-32) mmol/L Anion Gap 9 7 (3-11) BUN 20 17 (6-23) mg/dl Creatinine 0.80 0.90 (0.6-1.2) mg/dl Est Cr Clr Drug Dosing 48.4 44.2 ml/min Est GFR ( Amer) 81.3 70.5 ml/min Est GFR (Non-Af Amer) 70.1 60.8 ml/min BUN/Creatinine Ratio 25.0 H 18.9 (10-20) Glucose 184 H 157 H (70-99(Fasting)) mg/dl Calcium 9.2 9.7 (8.6-10.3) mg/dl Total Bilirubin 0.5 (0.2-1.0) mg/dl AST 30 (13-39) U/L ALT 24 (7-52) U/L Alkaline Phosphatase 78 (34-104) U/L Troponin I High Sens 4.2 (0-14) pg/ml Total Protein 6.1 (6.0-8.3) gm/dl Albumin 3.9 (3.4-5.0) gm/dl Globulin 2.2 L (2.5-4.0) gm/dl Albumin/Globulin Ratio 1.8 (0.9-2) Lipase 40 (11-82) U/L
[2024-05-25] MEDS: oxyCODONE HCL IR 5 MG TAB (IMMEDIATE RELEASE) PO PRN (22:31)
[2024-05-26] MEDS ORDERED: BUPIVACAINE 0.5 % 5 MG/1 ML PF 10ML VIAL ONE (06:14)
[2024-05-26] MEDS ORDERED: fentaNYL citrate PF 100 MCG/2 ML VIAL ONE ×2 (06:46→08:41)
--- NOTE | 2024-05-26 07:04 | Orthopedic Progress Note ---
Date of Service May 26, 2024 Assessment & Plan (1) Hip fracture, left: Plan: Findings discussed with family yesterday. She is scheduled for ORIF of her left hip today. The patients treatment options of conservative versus surgical intervention were discussed. Since the patient was an ambulatory prior to the injury and to avoid the risks of bed sores, pulmonary complications, and to give the best chance for ambulation, I recommended surgery. The risks of surgery, which include but are not limited to: bleeding, infection, re-operation, damage to nerves and arteries, continued pain, failure of the hardware, mal-union, non-union, DVT, and . The patient has a 20-30% morbidity associated with hip fracture for up to 1 year following a hip fracture. On the OR schedule for Friday as they have been taking Plavix and ASA. Will proceed if medically stable and POA agrees. Patient has been NPO after midnight 05/25/24 if proceeding with surgery 05/26/24. The patient is NWB. TEDs and foot pumps to RLE. Antibiotics & TXA education manager to OR. Hold Plavix Informed consent obtained over the phone from her son Gucci Romo, 05/25/24. Consent on chart. Continue care per primary service. (2) Fracture of left clavicle: Plan: Will treat conservatively for now Sling for comfort RICE Admission and Anticipated Discharge Date Admission Date: May 24, 2024 Subjective Everything hurts Physical Exam Physical Exam: AAO x 1 LLE: Sensation to light touch intact distally, able to wiggle her toes. 2+ DP pulse. Calf soft and non-tender.Leg is shortened and externally rotated. LUE: Sensation to light touch intact distally. Has difficulty following all commands. Motor to Median, radial, ulnar, Musculocutaneous nerves are intact. + tenderness to palpation over the mid-clavicle. + swelling and bruising over mid clavicle Results & Data Vital Signs (Past 12 Hours) Vital Signs Temp Pulse Pulse Resp BP Pulse Ox O2 Del Method 05/26/24 06:51 36.5 C 83 16 159/86 H 93 Room Air 05/26/24 02:24 36.8 C 79 20 138/73 93 Room Air 05/26/24 00:00 83 05/25/24 22:43 37.4 C 86 17 140/75 94 Room Air 05/25/24 19:32 37.4 C 87 17 145/84 H 92 Room Air Diagnostic Findings XR hip LT 2V w pelvis CLINICAL HISTORY: Left hip pain following fall. COMPARISON: None FINDINGS: Sacroiliac joints and symphysis pubis are intact. There is an acute comminuted displaced intertrochanteric fracture of the left femur. The fracture is displaced approximately 1.8 cm. The fracture is angulated. No additional acute fractures are present. Proximal right femur is intact. IMPRESSION: Acute displaced comminuted intertrochanteric fracture of the left femur. ACT 112: Negative or not required by law. Electronically signed by: Gil Toscano M.D. 05/24/2024 4:07 PM
[2024-05-26] MEDS: LACTATED RINGER'S 1,000 ML IV SCH (07:13)
--- NOTE | 2024-05-26 07:29 | Anesthesiology Consultation ---
Date of Service May 26, 2024 Assessment & Plan Chart Review Chart Review: Acceptable Risk for Surgery and Patient NOT seen in Pre Admission Testing Consults Requested none ASA ASA4 Proposed Anesthesia Anesthesia Type: General Regional Regional Laterality: Left Site: other ([facility]LETTE) Risk / Benefits Reviewed With: PT / POA / Parent / Guardian, Accepts Plan and Informed Consent Obtained History Surgery Operation Date: 05/26/24 07:30 Proposed Procedures p Left Troch Nail - Vern Remi Baca MD Height/Weight Height: 4 ft 11 in Weight: 69.541 kg Allergies Allergy/AdvReac Type Severity Reaction Status Date / Time shellfish derived AdvReac Intermediate SORENESS Verified 05/21/24 18:01 AROUND URETHRA WITH RASH, BURINING WITH URINATION Medications Home Medications Medication Instructions Recorded Confirmed Last Taken rivastigmine 9.5 mg/24 hour 9.5 mg topical DAILY 05/21/24 05/24/24 05/21/24 transdermal patch amoxicillin 875 mg-potassium 1 tab PO BID 2 days #4 tabs 05/24/24 05/24/24 Unknown clavulanate 125 mg tablet aspirin 81 mg tablet,delayed 81 mg PO QAM #60 tabs 05/24/24 05/24/24 Unknown release clopidogrel 75 mg tablet 75 mg PO QAM 19 days #19 tabs 05/24/24 05/24/24 Unknown lisinopril 20 mg tablet 20 mg PO DAILY #30 tabs 05/24/24 05/24/24 Unknown rosuvastatin 20 mg tablet 20 mg PO QAM #30 tabs 05/24/24 05/24/24 Unknown Active Medications Generic Name Dose Route Start Last Admin Trade Name Farooqq PRN Reason Stop Dose Admin Amoxicillin/Clavulanate Potassium 1 tab 05/24/24 21:00 05/25/24 22:27 Amoxicillin/Clavulanate 875 Mg Tab PO 05/26/24 09:01 1 tab BID GUS Administration Protocol Aspirin 81 mg 05/25/24 09:00 05/25/24 08:37 Aspirin 81 Mg Ectab PO 06/24/24 08:59 81 mg QAM GUS Administration Lactated Ringer's 1,000 mls @ 15 mls/hr 05/26/24 07:15 05/26/24 07:13 Lr IV 06/25/24 07:14 15 mls/hr .Q24H GUS Administration Lisinopril 20 mg 05/25/24 09:00 05/25/24 08:37 Lisinopril 20 Mg Tab PO 06/24/24 08:59 20 mg DAILY GUS Administration Miscellaneous 1 each 05/25/24 00:00 05/26/24 01:19 Order Awaiting Action: Rivastigmine 9.5 Mg/24 Hour Patch 24 Hour N/A 06/24/24 00:00 Not Given QS GUS Oxycodone HCl 5 mg 05/24/24 20:46 05/25/24 22:31 Oxycodone Hcl Ir 5 Mg Tab (Immediate Release) PO 06/07/24 20:45 5 mg Q8H PRN Administration Moderate Pain (Scale 4, 5, 6) Rosuvastatin Calcium 20 mg 05/25/24 09:00 05/25/24 08:37 Rosuvastatin Calcium 20 Mg Tab PO 06/24/24 08:59 20 mg QAM GUS Administration NPO Date Last Intake of Fluids: 05/26/24 Time Last Intake of Fluids: 00:00 Date Last Intake of Solids: 05/26/24 Time Last Intake of Solids: 00:00 Past Medical History Medical History Hypothyroid Exercise / Class Metabolic Activity II 4-5 Yardwork/Stairs/Walk up hill Past Anesthesia History No Hx of Anesthesia Complications and No Family Hx of Anesthesia Complications History of PONV No Hx of PONV and No Hx of Motion Sickness Social History Smoking Status: Never smoker Hx Alcohol Use: No Hx Substance Use: No Physical Exam Vital Signs Last Vital Signs Temp 36.5 C 05/26/24 06:51 Pulse 79 05/26/24 07:10 Resp 16 05/26/24 06:51 BP 159/86 H 05/26/24 06:51 Pulse Ox 93 05/26/24 06:51 O2 Del Method Room Air 05/26/24 06:51 ENMT Mouth: no dentition abnormality Thyromental Distance: > or= 3.5 Finger Breadths Mallampati Class: II Neck normal visual inspection Respiratory normal respiratory effort Auscultation: lungs clear to auscultation bilaterally Cardiovascular Rate/Rhythm: regular rate and regular rhythm Psychiatric Orientation: alert Testing Laboratory Results 05/25/24 05:40 05/25/24 05:40
[2024-05-26] MEDS ORDERED: EPINEPHrine INJ 1 MG/ML AMP ONE (07:33)
[2024-05-26] MEDS ORDERED: DEXAMETHASONE SOD INJ 4 MG/ML VIAL ONE (07:34)
[2024-05-26] MEDS ORDERED: BUPIVACAINE 0.25% PF 30 ML VIAL ONE (07:34)
[2024-05-26] MEDS: ceFAZolin 2000MG 2,000 MG/15 ML SYR IV SCH (07:39)
[2024-05-26] MEDS: TRANEXAMIC ACID / 0.7% NACL 1,000 MG/100 ML BAG IV SCH (07:39)
[2024-05-26] MEDS ORDERED: ONDANSETRON INJ 2 MG/ML 2 ML VIAL IV PRN (07:56)
[2024-05-26] MEDS ORDERED: ePHEDrine sulfate 50 MG/ML AMP IV PRN (07:56)
[2024-05-26] MEDS ORDERED: fentaNYL citrate PF 100 MCG/2 ML VIAL IV PRN (07:56)
[2024-05-26] MEDS ORDERED: ATROPINE SULFATE 0.1 MG/ML 10ML SYR IV PRN (07:56)
[2024-05-26] MEDS ORDERED: PROPOFOL IV EMULSION 10 MG/ML 20 ML VIAL IV ONE (08:09)
[2024-05-26] MEDS ORDERED: PHENYLEPHRINE 100MCG/ML 10ML SYR IV ONE ×2 (08:09→08:12)
[2024-05-26] MEDS ORDERED: LIDOCAINE 2% 2 ML VIAL/AMP(20MG/ML) INFIL ONE (08:09)
[2024-05-26] MEDS ORDERED: ePHEDrine sulfate 50 MG/5 ML SYR ONE (08:09)
[2024-05-26] MEDS ORDERED: ONDANSETRON INJ 2 MG/ML 2 ML VIAL ONE (08:09)
[2024-05-26] MEDS ORDERED: ceFAZolin 330 MG/ML 1 GM VIAL ONE (08:34)
[2024-05-26] MEDS: ceFAZolin 2000MG 2,000 MG/15 ML SYR IV ONE (08:36)
[2024-05-26] MEDS: BUPIVACAINE 0.5 % 5 MG/1 ML MPF 30ML VIAL ONE (08:40)
[2024-05-26] MEDS: LIDOCAINE 1%/EPINEPHRINE 1:100,000 50 ML VIAL ONE (08:40)
--- NOTE | 2024-05-26 09:48 | Post Operative Brief Note ---
Immediate Post Op Note Date of Surgery May 26, 2024 Pre & Post Diagnosis Operation Date: 05/26/24 07:30 Pre-Op Diagnosis: Hip fracture, left, intertochanteric Post-Op Diagnosis: Hip fracture, left, intertrochanteric I identified the patient and participated in the time-out.: Yes Procedure Operation Date: 05/26/24 07:30 Actual Procedures p Left Troch Nail(Left) - Vern Baca MD Surgeon Vern Baca MD Buncher Operator Emely Simeon PA-C (No fellow avial) Estimated Blood Loss 50 Findings Consistent with Post-Op Diagnosis Fluids 800 cc Drains Cerna Catheter (came to OR with cerna catheter in place) Anesthesia Type General Regional
--- NOTE | 2024-05-26 09:49 | Operative Report ---
Post Operative Report Pre & Post Diagnosis Operation Date: 05/26/24 07:30 Pre-Op Diagnosis: Hip fracture, left, intertochanteric Post-Op Diagnosis: Hip fracture, left, intertrochanteric I identified the patient and participated in the time-out.: Yes Procedure Operation Date: 05/26/24 07:30 Actual Procedures p ORIF L hip, Troch Nail(Left) - Vern Baca MD Surgeon Vern Baca MD Script Coordinator Emely Simeon PA-C (No fellow avial) Estimated Blood Loss 50 Findings See Below Displaced 3-part Intertrochanteric hip fracture Fluids 800 cc Specimens n/a Anesthesia Type General Regional Complications none Indications The patient is a 78 year old female who sustained a left hip fracture from a ground level fall. The patients treatment options of conservative versus surgical intervention were discussed. Since the patient was an ambulatory prior to the injury and to avoid the risks of bed sores, pulmonary complications, and to give the best chance for ambulation, I recommended surgery. The patient's family understands the risks of surgery, which include but are not limited to: bleeding, infection, re-operation, damage to nerves and arteries, continued pain, failure of the hardware, mal-union, non-union, DVT, and . In addition the patient is aware of the 20-30% morbidity associated with hip fracture for up to 1 year following a hip fracture. The patient's family understands all of these instructions and explanations, all of their questions have been satisfactorily addressed. The patient has elected to proceed with surgery and the informed consent was signed. Description of Procedure Emely Simeon PA-C is assisting with positioning and closure due to fellow not available. IMPLANTS: 1) 12 mm short troCH nail (Synthes). 2) 12 x 90 mm helical screw. 3) 5 x 36 mm locking screw. Procedure: The patient was taken to the Operating Room and placed in the supine position on the fracture table after spinal anesthesia was administered. A multidisciplinary time-out was performed identifying my initials on the left lower limb as the correct and operative limb. Prior to the incision being made, 2 grams of intravenous Ancef were given. Fluoroscopy was brought in to ensure adequate x-rays images could be obtained. A reduction was performed with traction, adduction, and internal rotation of the operative limb. Once this was confirmed with Fluro, the left lower extremity was prepped in the standard fashion. The trochanter was marked as was the planned incision and trajectory of the helical screw. The incisions were injected with a 50:50 mixture of 1% Lidocaine plain and 0.5% Bupivacaine with epinephrine for a total of 10cc. The planned incision proximal to the greater trochanter was made and carried down through the Tensor Fascia Snehal to expose the tip of the greater trochanter and the starting position. A starting guide wire was placed followed by the awl, and the starting reamer was used to create the entry hole for the short implant. A size 12 was selected. There was some resistance before the implant could be fully seated. It was removed and a long guide wire was placed and the shaft was sequentially reamed to to 13mm. The implant was then re-inserted without difficulty. A second incision was made for placement of the helical blade and distal locking screw. Using the johnny to elevate the proximal femur and a cob to reduce the femoral neck, the guide wire was placed. The helical blade was placed through the aiming guide in the standard fashion. The traction was released. The locking screw was also placed through the aiming guide in the standard fashion.The Helical blade was locked in place and then back off a 1/2 turn. Compression was achieved in the standard fashion. Final x-rays were obtained showing TAD of less than 25mm. The wounds were copiously irrigated. The Tensor Fascia Snehal a fat stay stitch were preformed with 0 Vicryl. The subcutaneous tissue was closed with 3-0 Vicryl. The skin was closed with oje. The incisions were covered with Xeroform, 4x4s, ABD, and foam tape. The patient was transfer to her hospital bed and taken to the PACU in stable condition. The sponge and needle counts were correct. Post-op Instructions: The patient was re-admitted to Hospitalist service. The patient will be WBAT with a walker. The patient will be seen by PT/OT. Labs will be checked in the am. DVT prophylaxis will be with TEDs, mechanical devices and can resume ASA and Plavix. I attest to the content of the Intraoperative Record and any orders documented therein. Any exceptions are noted below.
--- NOTE | 2024-05-26 10:11 | Operative Report ---
Post Operative Report Pre & Post Diagnosis Operation Date: 05/26/24 07:30 Pre-Op Diagnosis: Hip fracture, left, intertochanteric Post-Op Diagnosis: Hip fracture, left, intertrochanteric I identified the patient and participated in the time-out.: Yes Procedure Operation Date: 05/26/24 07:30 Actual Procedures p Open Reduction Internal Fixation Left hip, Trochanteric Nail(Left) - Vern Remi Baca MD Surgeon Dr. Phuong MD Paramedic Rn Emely Simeon PA-C (No fellow avial) Estimated Blood Loss 50 Findings Consistent with Post-Op Diagnosis Specimens None Anesthesia Type General Regional Description of Procedure Patient was taken to the operating room and placed under general anesthesia and given a peripheral nerve block. Time out was performed. She was given 2 g of IV Ancef for surgical prophylaxis and 1 g of IV TXA preoperatively for bleeding prophylaxis. She was prepped and draped in routine sterile fashion. I was present during the entire case and assisted with positioning, tissue retraction, reduction of fracture, implantation of hardware and closure. Please see Dr. Baca's operative report for further details regarding today's procedure. Patient was awakened and transferred to the recovery room in stable condition. I attest to the content of the Intraoperative Record and any orders documented therein. Any exceptions are noted below.
--- NOTE | 2024-05-26 10:55 | Anesthesiology Progress Note ---
Date of Service May 26, 2024 Anesthesia Post Procedure Vital Signs Vital Signs: Temp Pulse Pulse Pulse Resp BP BP 05/26/24 10:40 86 18 122/76 05/26/24 10:30 89 16 121/72 05/26/24 10:20 99 H 19 115/50 L 05/26/24 10:10 36.7 C 84 16 147/77 H 05/26/24 07:10 79 05/26/24 06:51 36.5 C 83 16 159/86 H 05/26/24 02:24 36.8 C 79 20 138/73 05/26/24 00:00 83 05/25/24 22:43 37.4 C 86 17 140/75 05/25/24 19:32 37.4 C 87 17 145/84 H 05/25/24 15:46 36.8 C 81 18 118/77 05/25/24 14:37 85 05/25/24 11:35 36.7 C 101 H 17 128/76 Pulse Ox O2 Del Method O2 Flow Rate 05/26/24 10:40 92 Room Air 05/26/24 10:30 94 Room Air 05/26/24 10:20 100 Oxymask 9 05/26/24 10:10 97 Oxymask 9 05/26/24 07:10 05/26/24 06:51 93 Room Air 05/26/24 02:24 93 Room Air 05/26/24 00:00 05/25/24 22:43 94 Room Air 05/25/24 19:32 92 Room Air 05/25/24 15:46 92 Room Air 05/25/24 14:37 05/25/24 11:35 92 Room Air Pain Intensity Left Hip: Pain Intensity: 8 Transfer of Care Handoff Completed per policy Notes Mental Status: alert / awake / arousable Patient Amnestic to Procedure: Yes Nausea / Vomiting: adequately controlled Pain: adequately controlled Airway Patency, RR, SpO2: stable & adequate BP & HR: stable & adequate Hydration State: stable & adequate Anesthetic Complications: no major complications apparent
[2024-05-26 11:01] LABS: Basophils # (auto) 0.06 K/uL (0.00-0.20); Basophils % (auto) 0.3 %; Eosinophils # (auto) 0.01 K/uL (0.00-0.50); Hematocrit (blood only) 38.6 % (37.0-47.0); Hemoglobin 12.6 g/dl (12.0-16.0); Immature Granulocytes # (auto) 0.37 K/uL (0.01-0.20); Immature Granulocytes % (auto) 1.8 %; Lymphocytes # (auto) 1.07 K/uL (1.20-3.40); Lymphocytes % (auto) 5.1 %; Mean Corpuscular Hemoglobin 29.2 pg (25.0-34.0); Mean Corpuscular Hgb Conc 32.6 g/dL (32.0-36.0); Mean Corpuscular Volume 89.6 fL (80.0-100.0); Mean Platelet Volume 10.5 fL (9.4-12.4); Monocytes # (auto) 0.97 K/uL (0.11-0.59); Monocytes % (auto) 4.6 %; Neutrophils % (auto) 88.2 %; Platelet Count 313 K/uL (130-400); RDW Coefficient of Variation 14.1 % (11.5-14.5); RDW Standard Deviation 45.4 fL (36.4-46.3); Red Blood Count 4.31 M/uL (4.20-5.40); White Blood Count 20.88 K/ul (4.8-10.8)
[2024-05-26 11:30] LABS: BUN Creatinine Ratio 22.5 (10-20); Calcium 8.6 mg/dl (8.6-10.3); Creatinine Clr Calc Pharmacy 37.9 ml/min; Est GFR (African American) 60.6 ml/min; Est GFR (Non-African American) 52.3 ml/min; Potassium 4.8 mmol/L (3.5-5.1)
--- NOTE | 2024-05-26 11:37 | Fluoroscopy Report ---
FL hip LT 2-3V CLINICAL HISTORY: LEFT TROCHNAIL TECHNIQUE: 4 views were obtained with the C-arm in the OR with the above procedure. Total fluoroscopy time was 123.6 seconds. Radiation dose was 52.37 mGy. Comparison: Comparison is made to hip radiograph 05/24/2024 FINDINGS/IMPRESSION: Intraoperative images were obtained of left trochanteric nail is seen. Please correlate with intraoperative fluoroscopy and operative report. ACT 112: Negative or not required by law. Electronically signed by: Ben López M.D. 05/26/2024 11:36 AM
--- NOTE | 2024-05-26 15:52 | Hospitalist Progress Note ---
Date of Service May 26, 2024 Assessment & Plan (1) Fracture of left clavicle: (2) Hip fracture, left: Plan 78yoF with PMHx significant for Alzheimer's dementia, hypertension, recent CVA presenting with a left hip fracture and left clavicular fracture after a fall at home. Patient was admitted May 21 - 2023 for acute CVA. She had mild left arm weakness and left facial droop. She was started on aspirin and Plavix as recommended by neurology and was discharged home with her son. After returning home, patient had a mechanical fall which led to displaced comminuted intertrochanteric fracture of left femur and left clavicle fracture. She is being managed for the following: Mechanical Fall Left clavicular fracture Acute displaced comminuted intertrochanteric fracture of the left femur Recent admission with acute CVA from May 21 to May 24; discharged home. Presents with mechanical fall Head CT with no acute bleed, noting prior known stroke Cervical spine CT noting L clavicle fracture Hip pelvis xray noting acute displaced comminuted intertrochanteric fracture of the left femur s/p Open Reduction Internal Fixation Left hip, Trochanteric Nail(Left) - Vern Baca MD 05/26/2024. PT OT eval after surgery Continue pain control, c/w bowel regimen Delirium precaution. Recent CVA- Brain MRI on May 22 showed punctate restricted diffusion in the right periventricular white matter and basal ganglia compatible with embolic stroke Patient was discharged on aspirin and Plavix. Admitting team discussed with neurology; Plavix is currently on hold. To be resumed after surgery when bleeding risk deemed minimal per sx. Continue on aspirin and statin Recent UTI- Urine culture positive for E. coli on May 21; completing course of Augmentin HTN- Lisinopril on hold pre-op. resume after surgery. Dementia- continue home rivastigmine DVT prophylaxis: SCDs, chemo px when bleeding risk deemed minimal per sx. CODE STATUS: DNR/DNI per discussion with pt's son on admission Dispo: admit to med/surg with tele Please note the above document was generated using voice recognition software. It may contain grammatical, syntax or spelling errors. Any formal questions or concerns about the content, text or information contained within the body of this dictation should be directly addressed to the provider for clarification Admission and Anticipated Discharge Date Admission Date: May 24, 2024 Subjective Patient seen and examined at bedside; not in distress, was drowsy s/p hip repair, stated pain under control, oriented to self only. No significant events overnight per RN. Physical Exam Physical Exam: Constitutional: drowsy, oriented to self. Not in distress Respiratory: Bilateral vesicular breath sounds Cardiovascular: RRR, no murmur, no edema Vessels: no JVD or carotid bruit Chest: normal inspection of chest Abdomen: normal bowel sounds, soft, nontender, no hepatosplenomegaly Musculoskeletal: left hip w/ clean dressing wo soakage. Neurologic: PERRL, EOMI, accommodation nl, Weakness on left arm of 4/5, mild facial droop on left side Results & Data Results & Data Vital Signs (Past 12 Hours) Vital Signs Temp Pulse Pulse Pulse Resp BP BP 05/26/24 14:35 36.8 C 95 H 16 115/78 05/26/24 14:15 103 H 05/26/24 13:33 36.8 C 102 H 18 112/68 05/26/24 12:28 36.8 C 109 H 18 131/66 05/26/24 11:59 36.8 C 89 16 114/73 05/26/24 11:30 36.9 C 88 16 110/72 05/26/24 11:15 36.5 C 86 16 123/76 05/26/24 11:00 88 17 132/61 05/26/24 10:50 36.9 C 88 17 135/53 L 05/26/24 10:40 86 18 122/76 05/26/24 10:30 89 16 121/72 05/26/24 10:20 99 H 19 115/50 L 05/26/24 10:10 36.7 C 84 16 147/77 H 05/26/24 07:10 79 05/26/24 06:51 36.5 C 83 16 159/86 H Pulse Ox O2 Del Method O2 Flow Rate 05/26/24 14:35 93 Room Air 05/26/24 14:15 05/26/24 13:33 96 Nasal Cannula 2 05/26/24 12:28 95 Nasal Cannula 2 05/26/24 11:59 96 Nasal Cannula 2 05/26/24 11:30 97 Nasal Cannula 2 05/26/24 11:15 97 Nasal Cannula 2 05/26/24 11:00 95 Nasal Cannula 2 05/26/24 10:50 95 Nasal Cannula 2 05/26/24 10:40 92 Room Air 05/26/24 10:30 94 Room Air 05/26/24 10:20 100 Oxymask 9 05/26/24 10:10 97 Oxymask 9 05/26/24 07:10 05/26/24 06:51 93 Room Air
[2024-05-26] MEDS: ceFAZolin 1000MG 1,000 MG/7.5 ML SYR IV SCH (17:16)
[2024-05-26] MEDS: ASPIRIN 81 MG ECTAB PO SCH (21:09)
[2024-05-26] MEDS ORDERED: HYDROCORTISONE SOD SUCCINATE 100 MG/2 ML VIAL IV STA (22:21)
[2024-05-26] MEDS: OPTIRAY 320 125ml IV ONE (22:30)
[2024-05-26] MEDS: HYDROCORTISONE SOD 200 MG in SYRINGE 0 ML IV STA (22:46)
[2024-05-26 22:51] VITALS: TEMP 98.2
--- NOTE | 2024-05-26 23:01 | CT Scan Report ---
Exam(s): CT HEAD Without Contrast EXAM: CT Head Without Intravenous Contrast CLINICAL HISTORY: Reason for exam: cva. TECHNIQUE: Axial computed tomography images of the head/brain without intravenous contrast. CTDI is 42.92 mGy and DLP is 677.48 mGy-cm. Automated exposure control was utilized for the study. A dose lowering technique was utilized adhering to the principles of ALARA. COMPARISON: CT head: 05/23/2024 FINDINGS: Motion-induced image degradation. Brain: Poorly defined focal zone with decreased density superiorly in the right basal ganglia has increased since comparison, likely is related to an acute/subacute infarction (series 2 image 60). No hemorrhage. There are areas of decreased attenuation within the white matter tracts of the supratentorial brain, nonspecific, but can be seen with chronic microvascular disease changes. Age-related cerebral atrophy with widening of the extra-axial spaces and ventricular dilatation. Bones/joints: Unremarkable. No acute fracture. Soft tissues: Unremarkable. Sinuses: Unremarkable as visualized. No acute sinusitis. Mastoid air cells: Unremarkable as visualized. No mastoid effusion. Other findings: . Diffuse atheromatous calcifications of the intracranial arteries. IMPRESSION: Ill-defined focal zone with decreased attenuation in the right basal ganglia is increased since prior comparison, reflective of an acute/subacute infarction. MRI brain would be confirmatory. Chronic involutional and ischemic changes of the brain. . Communications: Call Doctor Stroke Electronically signed by: Mechelle Rader MD, DABR 05/26/24 23:00 PM
[2024-05-26 23:06] VITALS: PULSE 84
--- NOTE | 2024-05-26 23:33 | CT Scan Report ---
Exam(s): CTA HEAD With Contrast IV Amt: 119 ml optiray 320 EXAM: CT Angiography Head With Intravenous Contrast CLINICAL HISTORY: Reason for exam: cva. TECHNIQUE: Axial computed tomographic angiography images of the head with intravenous contrast. CTDI is 12.01 mGy and DLP is 414.73 mGy-cm. Automated exposure control was utilized for the study. A dose lowering technique was utilized adhering to the principles of ALARA. MIP reconstructed images were created and reviewed. CONTRAST: Patient received 119 ml optiray 320 of IV contrast COMPARISON: CT brain: 05/26/2024 FINDINGS: Right internal carotid artery: No acute findings. Intracranial segment is patent with no significant stenosis. No aneurysm. Right anterior cerebral artery: Unremarkable. No occlusion or significant stenosis. No aneurysm. Right middle cerebral artery: There is a 6 mm occlusion/high-grade stenosis in the M1 segment (series 601 image 41, series 8 image 31). Moderate grade tandem stenoses in M2 and M3 segments. No aneurysm. Right posterior cerebral artery: Somewhat diminutive. No occlusion or significant stenosis. No aneurysm. Right vertebral artery: Unremarkable as visualized. Left internal carotid artery: No acute findings. Intracranial segment is patent with no significant stenosis. No aneurysm. Left anterior cerebral artery: Unremarkable. No occlusion or significant stenosis. No aneurysm. Left middle cerebral artery: Low/moderate-grade stenosis in the M1 segment. No occlusion. Moderate grade tandem stenosis in M2 and M3 segments. No aneurysm. Left posterior cerebral artery: Unremarkable. No occlusion or significant stenosis. No aneurysm. Left vertebral artery: Unremarkable as visualized. Basilar artery: Unremarkable. No occlusion or significant stenosis. No aneurysm.. IMPRESSION: There is likely a 6 mm long occlusion/high-grade stenosis in the M1 segment of the right MCA. CTA [place] of [place] otherwise does not demonstrate high-grade stenosis/occlusion or aneurysm. . Communications: Call Doctor Stroke Electronically signed by: Mechelle Rader MD, DABR 05/26/24 23:32 PM
--- NOTE | 2024-05-26 23:49 | Discharge Summary ---
Date of Service May 26, 2024 Admission HPI Per Admitting Provider Pt is a 89yoF with PMHx significant for Alzheimer's dementia, hypertension, recent CVA presenting with a left hip fracture and left clavicular fracture after a fall at home. Pt was discharged home today after being hospitalized with an acute stroke. History obtained from phone call with pt's son as pt is pleasantly confused in the room, AAOx1 at the time of evaluation. He states that his mom was taking off her coat after getting home when she fell. He states she was able to get up the stairs without incident. However, after getting inside, while she was taking off her coat she fell, hitting her head against the wall and then her left side. He notes the dog was also running around and she cried out after falling. Pt notes that she is in pain. Received morphine doses in the ED. Principal Diagnosis Acute CVA Discharge Data Allergies Allergy/AdvReac Type Severity Reaction Status Date / Time shellfish derived AdvReac Intermediate SORENESS Verified 05/21/24 18:01 AROUND URETHRA WITH RASH, BURINING WITH URINATION Consultations 05/24/24 16:42 ED Decision to Admit Stat 05/24/24 18:35 Consult Orthopedic Surgery Routine 05/24/24 20:46 Consult Orthopedic Surgery Routine Procedures Performed Operation Date: 05/26/24 07:30 Actual Procedures p Open Reduction Internal Fixation Left hip, Trochanteric Nail(Left) - Vern Baca MD Ordered Studies 05/24/24 15:22 CT cervical spine wo con Stat CT head/brain wo con Stat 05/26/24 07:30 FL hip LT 2-3V Routine 05/26/24 07:56 US - OR guided needle placemen Routine 05/26/24 22:17 CT head/brain wo con Stat 05/26/24 22:20 CTA head w con [CT angio head w con] Stat CTA neck with con [CT angio neck with con] Stat Hospital Course (1) Acute CVA (cerebrovascular accident): Patient who recent had stroke on may 212023 was started on aspirin and Plavix and statin came back on may 24 with fall and left clavicle fracture and acute displaced comminuted intertrochanteric fracture of left femur. Plavix was held for surgery. Patient is s/p orif and Troc nail in left femur today 05/26/24. Post op patient was doing ok. Last well know 2108. Stroke alert was called at 2213 as patient seemed more slurred in her speech and left arm was flaccid.Recent CTa head from may 22: Focal cutoff of the origin of the right MCA with distal reconstitution in this patient with infarcts of the right periv entricular white matter and basal ganglia. CTA head today 05/26/24: There is likely a 6 mm long occlusion/high-grade stenosis in the M1 segment of the right MCA. [facility] accepted patient in transfer to [facility] for further management. Son notified and agreed for transfer. Brain MRI may 22:Punctate restricted diffusion in the right periventricular white matter and basal ganglia compatible with an embolic stroke. Starting on iv fluids 100ml/hr. Todays morning Progress notes from : (1) Fracture of left clavicle: (2) Hip fracture, left: Plan 78yoF with PMHx significant for Alzheimer's dementia, hypertension, recent CVA presenting with a left hip fracture and left clavicular fracture after a fall at home. Patient was admitted May 21 - 2023 for acute CVA. She had mild left arm weakness and left facial droop. She was started on aspirin and Plavix as recommended by neurology and was discharged home with her son. After returning home, patient had a mechanical fall which led to displaced comminuted intertrochanteric fracture of left femur and left clavicle fracture. She is being managed for the following: Mechanical Fall Left clavicular fracture Acute displaced comminuted intertrochanteric fracture of the left femur Recent admission with acute CVA from May 21 to May 24; discharged home. Presents with mechanical fall Head CT with no acute bleed, noting prior known stroke Cervical spine CT noting L clavicle fracture Hip pelvis xray noting acute displaced comminuted intertrochanteric fracture of the left femur s/p Open Reduction Internal Fixation Left hip, Trochanteric Nail(Left) - Vern Baca MD 05/26/2024. PT OT eval after surgery Continue pain control, c/w bowel regimen Delirium precaution. Recent CVA- Brain MRI on May 22 showed punctate restricted diffusion in the right periventricular white matter and basal ganglia compatible with embolic stroke Patient was discharged on aspirin and Plavix. Admitting team discussed with neurology; Plavix is currently on hold. To be resumed after surgery when bleeding risk deemed minimal per sx. Continue on aspirin and statin Recent UTI- Urine culture positive for E. coli on May 21; completing course of Augmentin HTN- Lisinopril on hold pre-op. resume after surgery. Dementia- continue home rivastigmine DVT prophylaxis: SCDs, chemo px when bleeding risk deemed minimal per sx. CODE STATUS: DNR/DNI per discussion with pt's son on admission Total Time Total Time Spent Total Time Spent (In Minutes): 60minutes Discharge Plan Discharge Items Patient Disposition: Transfer [facility] Reason For Visit: FALL, HIP FRACTURE Discharge Diagnosis: Acute CVA Activity: Per Instructions section Non-emergency contact: Surgeon Call non-emergency contact if: your symptoms worsen, your pain is not controlled, your temperature is above 101, your wound has increased redness and your wound has increased drainage Follow-up/Referrals: Florecita Simeon PA-C [Physician Cable Assembler] - 06/09/24 1:45 pm Alejo Coburn MD [Primary Care Provider] - Diet: Nothing by Mouth Addtl Attending Provider Instructions: [place] [facility] [facility] [employer] Provider Instructions: Orthopedic instructions: Weight-bear as tolerated left lower extremity. Allowed for full range of motion of left lower extremity joints. Use walker to assist with ambulation at all times. ELIJAH stockings on bilateral lower extremities (knee-high); on during the day and off at night. Aspirin 81 mg twice daily x 6 weeks postoperatively for DVT prophylaxis. Ice to left hip as needed for pain and swelling. Elevate left lower extremity above your heart to relieve pain and swelling. Keep incision covered. Redress incision on an as-needed basis. If waterproof dressing has been applied may shower with that in place. Keep incisions dry until joe removed. Follow-up as scheduled. PT and OT as instructed. Pain medication as prescribed and as needed. Call [phone] with any increased pain, swelling, fevers, chills or drainage from incision, to confirm or reschedule appointment. Pending Studies at Discharge: Yes Studies:: cta head and neck Stand-Alone Forms: My [facility] [place] [employer] Skilled Items Patient informed of condition?: No DNR: Yes Discharge Level of Care: Other Communicable Disease: No Discharge Prognosis: Other Lines: Peripheral IV Urinary Catheter: No Medications and DC Order Prescriptions: Continued rivastigmine 9.5 mg/24 hour patch 24 hour 9.5 mg topical DAILY aspirin 81 mg Tablet,Delayed Release (Dr/Ec) 81 mg PO QAM Qty: 60 0RF rosuvastatin 20 mg Tablet 20 mg PO QAM Qty: 30 0RF lisinopril 20 mg tablet 20 mg PO DAILY Qty: 30 0RF amoxicillin-pot clavulanate 875-125 mg tablet 1 tab PO BID 2 Days Qty: 4 0RF Discontinued clopidogrel 75 mg Tablet 75 mg PO QAM 19 Days Qty: 19 0RF Discharge Orders: Discharge Order (Routine); Ordered 05/26/24 Ordered By: Jeremy Mock Admission Data Admit Date/Time: 05/24/24 17:29 Attending Provider: Maikol Hood Admit Provider: Terrie Bradley Primary Care Provider: Alejo Coburn Other Providers: Vern Baca; Terrie Bradley
--- NOTE | 2024-05-26 23:53 | CT Scan Report ---
Exam(s): CTA NECK With Contrast IV Amt: 119 ml optitray 320 EXAM: CT Angiography Neck With Intravenous Contrast CLINICAL HISTORY: Reason for exam: cva. TECHNIQUE: Routine carotid CT angiography protocol was performed with intravenous contrast. NASCET criteria using the distal ICAs for comparison were used for evaluation of stenoses. CTDI is 12.01 mGy and DLP is 414.73 mGy-cm. Automated exposure control was utilized for the study. A dose lowering technique was utilized adhering to the principles of ALARA. MIP reconstructed images were created and reviewed. CONTRAST: Patient received 119 ml optitray 320 of IV contrast COMPARISON: None. FINDINGS: VASCULATURE: Calcified and noncalcified atherosclerotic plaques of the aortic arch. Right common carotid artery: Distal like calcified atherosclerotic plaques. No occlusion or significant stenosis. No dissection. Right internal carotid artery: Proximally extracranial segment somewhat bulky calcified atherosclerotic plaques with 50-70% luminal narrowing. No dissection. The diameter of the distal right ICA: 5.5 mm. Right external carotid artery: High-grade stenosis proximally. Right vertebral artery: No occlusion or significant stenosis. No dissection. Left common carotid artery: <50% stenosis left carotid bulb.. No occlusion . No dissection. Left internal carotid artery: 50-70% stenosis in the origin (series 700 image 28). Calcified plaque formation of the proximal/mid extracranial segment with <70% stenosis (series 701 image 30). No occlusion. No dissection. Left external carotid artery: Unremarkable. No occlusion. Left vertebral artery: Unremarkable. No occlusion or significant stenosis. No dissection. NECK: Bones/joints: No acute fracture. Degenerative cervical spondylolysis. Soft tissues: Unremarkable. Lung apices: Emphysematous changes of the lungs. . CAROTID STENOSIS REFERENCE USING NASCET CRITERIA: % ICA stenosis = (1 - narrowest ICA diameter/diameter of distal cervical ICA) x 100. Mild - <50% stenosis. Moderate - 50-69% stenosis. Severe - 70-94% stenosis. Near occlusion - 95-99% stenosis. Occluded - 100% stenosis. IMPRESSION: Calcified/noncalcified atherosclerotic disease of the distal bilateral common carotid arteries and proximal internal carotid arteries with 50- 70% luminal narrowing demonstrated as described above. . Communications: Call Doctor Stroke Electronically signed by: Mechelle Rader MD, DABR 05/26/24 23:52 PM
[2024-05-26] MEDS: SODIUM CHLORIDE 0.9% 1,000 ML IV SCH (23:54)
[2024-05-27 00:18] VITALS: BP 126/67; RESP 16; O2SAT 95
--- NOTE | 2024-05-27 00:32 | Critical Care Consultation ---
Date of Consultation May 27, 2024 Assessment & Plan (1) Acute CVA (cerebrovascular accident): (2) Closed hip fracture: (3) Alzheimer dementia: Plan Reason Critically Ill: 78 YOF suffered RIGHT M1 occlusion with left sided weakness, and right gaze deviation. ICU for neurological monitoring, hemodynamics, and respiratory monitoring prior to transfer. Neuro - Acute M1 occlusion with stenosis of M1 CAM ICU: Negative - NIHSS- 16 - Time last known well- 2108 - not tPA candidate secondary to surgery - previously on ASA and plavix- Currently patient is protecting airway and BP and Neurological status are stable with no declination. Monitoring prior to transfer. - If neurostatus changes consider increasing BP with pressors - If airway needs protected- intubate - No hemorrhage noted on CT scan 0044: Transport arrival time ETA 10 min. Images, labs, hx reviewed. DISPO - TXFR to [facility] History of Present Illness Reason for Consultation: Large RIGHT M1 thrombotic CVA Requesting Physician: Jeremy Mock MD Attending Physician: Maikol Hood MD History of Present Illness In short as patient is pending acute transfer to [facility] for angiography and possible thrombectomy for right LVO M1 territory. Patient originally admitted to 05/24/24 following a fall where she suffered fracture of left clavicle and hip fracture of the left, where she underwent intertrochanteric nailing repair on 05/26/24. This evening patient was stroke alerted for onset of left sided weakness, upper and lower extremities, with right sided gaze. She had CT head, CTA of the head and neck completed- with CTA head noting 6mm long occlusion/high grrade stenosis of the M1 sgment of the RIGHT MCA without ameurysm. She is awaiting to go to [facility] to angio suite for angio and possible procedure to remove clot. She was transferred to ICU for acute monitoring while awaiting transfer. CODE: DNR/DNI- however if she would need stabalized prior to transfer of procedure, she is OK to be intubated. Allergies Allergy/AdvReac Type Severity Reaction Status Date / Time shellfish derived AdvReac Intermediate SORENESS Verified 05/21/24 18:01 AROUND URETHRA WITH RASH, BURINING WITH URINATION Home Medications Medication Instructions Recorded Confirmed Type rivastigmine 9.5 mg/24 hour 9.5 mg topical DAILY 05/21/24 05/24/24 History transdermal patch amoxicillin 875 mg-potassium 1 tab PO BID 2 days #4 tabs 05/24/24 05/24/24 Rx clavulanate 125 mg tablet aspirin 81 mg tablet,delayed 81 mg PO QAM #60 tabs 05/24/24 05/24/24 Rx release clopidogrel 75 mg tablet 75 mg PO QAM 19 days #19 tabs 05/24/24 05/24/24 Rx lisinopril 20 mg tablet 20 mg PO DAILY #30 tabs 05/24/24 05/24/24 Rx rosuvastatin 20 mg tablet 20 mg PO QAM #30 tabs 05/24/24 05/24/24 Rx Patient History Medical History Hypothyroid Social History Smoking Status: Never smoker Hx Alcohol Use: No Hx Substance Use: No Preferred Language: Tristanian Communication Ability: Effective Edge Grinder Required: No Beliefs That Will Affect Care: None Current Living Situation: Family Feels Safe at Home: Yes Safety Concerns: Feels Safe At This Time Assistive Devices: None Review of Systems Review of Systems: not performed Physical Exam Physical Exam: PHYSICAL EXAM: General: awake, alert, no apparent distress Neuro: AAO x 3, speech clear and appropriate, She is with RIGHT gaze deviation, dysarthria, left hand is contracted and no movement, left leg is with 1/5 strength, right upper is with 5/5 strentgh, and right lower is 5/5 strength. She is with decreased sensation on left hand and arm up to the elbow, left leg sensation is intact. Chest: equal rise and fall of the chest, no accessory muscle use, no heaves or thrills, Clear to auscultation, on room air, Cardiac: Regular rate and rhythm, telemetry reviewed, skin warm dry, cap refill <3 seconds, peripheral pulses +2 no JVD, no murmur,no edema GI: NABS x 4 quadrants, soft, nontender to palpation, no rebound, guarding or tenderness : Avery to gravity Extremities: brusing to left clavicle and arm, left hip, foam dressing to left hip Results & Data Results & Data Vital Signs (Past 12 Hours) Vital Signs Temp Pulse Pulse Pulse Resp BP Pulse Ox 05/26/24 23:05 84 18 122/74 94 05/26/24 23:00 87 21 122/74 95 05/26/24 22:53 86 18 130/84 94 05/26/24 22:34 88 18 134/62 93 05/26/24 22:15 36.8 C 88 88 16 117/64 91 05/26/24 19:33 36.6 C 92 H 18 118/78 94 05/26/24 14:35 36.8 C 95 H 16 115/78 93 05/26/24 14:15 103 H 05/26/24 13:33 36.8 C 102 H 18 112/68 96 05/26/24 12:28 36.8 C 109 H 18 131/66 95 O2 Del Method O2 Flow Rate 05/26/24 23:05 Room Air 05/26/24 23:00 Room Air 05/26/24 22:53 Room Air 05/26/24 22:34 Room Air 05/26/24 22:15 Room Air 05/26/24 19:33 Room Air 05/26/24 14:35 Room Air 05/26/24 14:15 05/26/24 13:33 Nasal Cannula 2 05/26/24 12:28 Nasal Cannula 2 Laboratory Results Abnormal lab results 05/26/24 05/26/24 Range/Units 10:19 22:15 WBC 20.88 H (4.8-10.8) K/ul Neut # (Auto) 18.40 H (1.40-6.50) K/uL Lymph # (Auto) 1.07 L (1.20-3.40) K/uL [place] # (Auto) 0.97 H (0.11-0.59) K/uL Immature Gran # (Auto) 0.37 H (0.01-0.20) K/uL BUN/Creatinine Ratio 22.5 H (10-20) Glucose 162 H (70-99(Fasting)) mg/dl POC Glucose 171 H (70-99) mg/dl Diagnostic Findings Hip X-Ray 05/26/24 07:30 FL hip LT 2-3V CLINICAL HISTORY: LEFT TROCHNAIL TECHNIQUE: 4 views were obtained with the C-arm in the OR with the above procedure. Total fluoroscopy time was 123.6 seconds. Radiation dose was 52.37 mGy. Comparison: Comparison is made to hip radiograph 05/24/2024 FINDINGS/IMPRESSION: Intraoperative images were obtained of left trochanteric nail is seen. Please correlate with intraoperative fluoroscopy and operative report. ACT 112: Negative or not required by law. Electronically signed by: Ben López M.D. 05/26/2024 11:[address] 05/26/24 22:17 CR Exam(s): CT HEAD Without Contrast EXAM: CT Head Without Intravenous Contrast CLINICAL HISTORY: Reason for exam: cva. TECHNIQUE: Axial computed tomography images of the head/brain without intravenous contrast. CTDI is 42.92 mGy and DLP is 677.48 mGy-cm. Automated exposure control was utilized for the study. A dose lowering technique was utilized adhering to the principles of ALARA. COMPARISON: CT head: 05/23/2024 FINDINGS: Motion-induced image degradation. Brain: Poorly defined focal zone with decreased density superiorly in the right basal ganglia has increased since comparison, likely is related to an acute/subacute infarction (series 2 image 60). No hemorrhage. There are areas of decreased attenuation within the white matter tracts of the supratentorial brain, nonspecific, but can be seen with chronic microvascular disease changes. Age-related cerebral atrophy with widening of the extra-axial spaces and ventricular dilatation. Bones/joints: Unremarkable. No acute fracture. Soft tissues: Unremarkable. Sinuses: Unremarkable as visualized. No acute sinusitis. Mastoid air cells: Unremarkable as visualized. No mastoid effusion. Other findings: . Diffuse atheromatous calcifications of the intracranial arteries. IMPRESSION: Ill-defined focal zone with decreased attenuation in the right basal ganglia is increased since prior comparison, reflective of an acute/subacute infarction. MRI brain would be confirmatory. Chronic involutional and ischemic changes of the brain. . Communications: Call Doctor Stroke Electronically signed by: Mechelle Rader MD, DABR 05/26/24 23:00 PM Head CTA 05/26/24 22:20 CR Exam(s): CTA HEAD With Contrast IV Amt: 119 ml optiray 320 EXAM: CT Angiography Head With Intravenous Contrast CLINICAL HISTORY: Reason for exam: cva. TECHNIQUE: Axial computed tomographic angiography images of the head with intravenous contrast. CTDI is 12.01 mGy and DLP is 414.73 mGy-cm. Automated exposure control was utilized for the study. A dose lowering technique was utilized adhering to the principles of ALARA. MIP reconstructed images were created and reviewed. CONTRAST: Patient received 119 ml optiray 320 of IV contrast COMPARISON: CT brain: 05/26/2024 FINDINGS: Right internal carotid artery: No acute findings. Intracranial segment is patent with no significant stenosis. No aneurysm. Right anterior cerebral artery: Unremarkable. No occlusion or significant stenosis. No aneurysm. Right middle cerebral artery: There is a 6 mm occlusion/high-grade stenosis in the M1 segment (series 601 image 41, series 8 image 31). Moderate grade tandem stenoses in M2 and M3 segments. No aneurysm. Right posterior cerebral artery: Somewhat diminutive. No occlusion or significant stenosis. No aneurysm. Right vertebral artery: Unremarkable as visualized. Left internal carotid artery: No acute findings. Intracranial segment is patent with no significant stenosis. No aneurysm. Left anterior cerebral artery: Unremarkable. No occlusion or significant stenosis. No aneurysm. Left middle cerebral artery: Low/moderate-grade stenosis in the M1 segment. No occlusion. Moderate grade tandem stenosis in M2 and M3 segments. No aneurysm. Left posterior cerebral artery: Unremarkable. No occlusion or significant stenosis. No aneurysm. Left vertebral artery: Unremarkable as visualized. Basilar artery: Unremarkable. No occlusion or significant stenosis. No aneurysm.. IMPRESSION: There is likely a 6 mm long occlusion/high-grade stenosis in the M1 segment of the right MCA. CTA [place] otherwise does not demonstrate high-grade stenosis/occlusion or aneurysm. . Communications: Call Doctor Stroke Electronically signed by: Mechelle Rader MD, DABR 05/26/24 23:32 PM Neck CTA 05/26/24 22:20 CR Exam(s): CTA NECK With Contrast IV Amt: 119 ml optitray 320 EXAM: CT Angiography Neck With Intravenous Contrast CLINICAL HISTORY: Reason for exam: cva. TECHNIQUE: Routine carotid CT angiography protocol was performed with intravenous contrast. NASCET criteria using the distal ICAs for comparison were used for evaluation of stenoses. CTDI is 12.01 mGy and DLP is 414.73 mGy-cm. Automated exposure control was utilized for the study. A dose lowering technique was utilized adhering to the principles of ALARA. MIP reconstructed images were created and reviewed. CONTRAST: Patient received 119 ml optitray 320 of IV contrast COMPARISON: None. FINDINGS: VASCULATURE: Calcified and noncalcified atherosclerotic plaques of the aortic arch. Right common carotid artery: Distal like calcified atherosclerotic plaques. No occlusion or significant stenosis. No dissection. Right internal carotid artery: Proximally extracranial segment somewhat bulky calcified atherosclerotic plaques with 50-70% luminal narrowing. No dissection. The diameter of the distal right ICA: 5.5 mm. Right external carotid artery: High-grade stenosis proximally. Right vertebral artery: No occlusion or significant stenosis. No dissection. Left common carotid artery: <50% stenosis left carotid bulb.. No occlusion . No dissection. Left internal carotid artery: 50-70% stenosis in the origin (series 700 image 28). Calcified plaque formation of the proximal/mid extracranial segment with <70% stenosis (series 701 image 30). No occlusion. No dissection. Left external carotid artery: Unremarkable. No occlusion. Left vertebral artery: Unremarkable. No occlusion or significant stenosis. No dissection. NECK: Bones/joints: No acute fracture. Degenerative cervical spondylolysis. Soft tissues: Unremarkable. Lung apices: Emphysematous changes of the lungs. . CAROTID STENOSIS REFERENCE USING NASCET CRITERIA: % ICA stenosis = (1 - narrowest ICA diameter/diameter of distal cervical ICA) x 100. Mild - <50% stenosis. Moderate - 50-69% stenosis. Severe - 70-94% stenosis. Near occlusion - 95-99% stenosis. Occluded - 100% stenosis. IMPRESSION: Calcified/noncalcified atherosclerotic disease of the distal bilateral common carotid arteries and proximal internal carotid arteries with 50- 70% luminal narrowing demonstrated as described above. . Communications: Call Doctor Stroke Electronically signed by: Mechelle Rader MD, DABR 05/26/24 23:52 PM Medications Administered Home Medications rivastigmine 9.5 mg/24 hour transdermal patch 9.5 mg topical DAILY 05/21/24 [History Confirmed 05/24/24] amoxicillin 875 mg-potassium clavulanate 125 mg tablet 1 tab PO BID 2 days #4 tabs 05/24/24 [Rx Confirmed 05/24/24] aspirin 81 mg tablet,delayed release 81 mg PO QAM #60 tabs 05/24/24 [Rx Conf irmed 05/24/24] clopidogrel 75 mg tablet 75 mg PO QAM 19 days #19 tabs 05/24/24 [Rx Confirmed 05/24/24] lisinopril 20 mg tablet 20 mg PO DAILY #30 tabs 05/24/24 [Rx Confirmed 05/24/24] rosuvastatin 20 mg tablet 20 mg PO QAM #30 tabs 05/24/24 [Rx Confirmed 05/24/24] Active Medications Aspirin (Aspirin 81 Mg Ectab) 81 mg PO BID [facility] Stop: 06/25/24 20:59 Last Admin: 05/26/24 21:09 Dose: 81 mg Diphenhydramine HCl (Diphenhydramine 50 Mg/Ml Vial) 50 mg IV ONE ONE Stop: 05/27/24 02:22 Hydromorphone HCl (Hydromorphone Inj 0.5 Mg/0.5 Ml Syr) 0.25 mg IV Q6H PRN PRN Reason: Severe Pain (Scale 7, 8, 9,10) Stop: 06/07/24 20:45 Acetaminophen (Ofirmev) 1,000 mg in 100 mls @ 400 mls/hr IV Q8H PRN PRN Reason: Mild Pain (Scale 1, 2, 3) Stop: 05/27/24 20:45 Sodium Chloride (Nss) 1,000 mls @ 100 mls/hr IV .Q10H [facility] Stop: 06/25/24 23:44 Last Admin: 05/26/24 23:54 Dose: 100 mls/hr Lactobacillus Acidophilus (Advanced Probiotic 625 Mg Capsule) 1,250 mg PO DAILY [facility] Stop: 06/26/24 08:59 Miscellaneous (Order Awaiting Action: Rivastigmine 9.5 Mg/24 Hour Patch 24 Hour) 1 each N/A QS [facility] Stop: 06/24/24 00:00 Last Admin: 05/26/24 15:39 Dose: Not Given Ondansetron HCl (Ondansetron Inj 2 Mg/Ml 2 Ml Vial) 4 mg IV Q6H PRN PRN Reason: Nausea And Vomiting Stop: 06/23/24 20:45 Rosuvastatin Calcium (Rosuvastatin Calcium 20 Mg Tab) 20 mg PO QAM [facility] Stop: 06/24/24 08:59 Last Admin: 05/26/24 12:44 Dose: 20 mg Coding Level of Care Code 25617 IN/OBS CONSULT LVL 2,35M Diagnoses Acute CVA (cerebrovascular accident) I63.9 Closed hip fracture S72.002A Encounter type: initial encounter Laterality: left Alzheimer dementia G30.9; F02.80 (2) Closed hip fracture Encounter type: initial encounter Laterality: left Qualified Code(s): S72.002A - Fracture of unspecified part of neck of left femur, initial encounter for closed fracture
[2024-05-27] MEDS ORDERED: diphenhydrAMINE 50 MG/ML VIAL IV ONE (02:21)
[2024-05-27] MEDS ORDERED: ADVANCED PROBIOTIC 625 MG CAPSULE PO SCH (09:00)
--- NOTE | 2024-05-27 14:22 | Electrocardiogram Report ---
Test Reason : Blood Pressure : */* mmHG Vent. Rate : 88 BPM Atrial Rate : 87 BPM P-R Int : * ms QRS Dur : 134 ms QT Int : 422 ms P-R-T Axes : * -76 90 degrees QTcB Int : 510 ms Poor data quality, interpretation may be adversely affected Normal sinus rhythm Right bundle branch block Left anterior fascicular block Bifascicular block Left ventricular hypertrophy with repolarization abnormality Abnormal ECG Confirmed by Willy De Santiago ([id number]) on 05/27/2024 2:21:47 PM Referred By: REFERRED SELF Confirmed By: Willy De Santiago
== END 2024-05-27 01:09 | disposition short-term general hospital (02) | DRG 480 ==
LOC: ED 15:06 → SUATTDRO 17:29 → 2N 17:29 → 1E 05-26 23:56